=== PATIENT | female | born 1950 | race Caucasian/White ===

== ENCOUNTER 2020-09-18 09:05 | Emergency (ER) | payer BC, OTHER ==
--- OUTSIDE RECORDS SUMMARY | 2020-09-18 09:08 | XMS REPORT | Continuity of Care Document ---
:1950 Author Organization [facility] t Address [address] [place] [address] Care Team Providers Name Role Phone IZA Primary Care Physician Unavailable JULITO CERVANTES Attending Clinician Unavailable IZA Attending Clinician Unavailable LOVELY Attending Clinician Unavailable Nurse, Tiago Cai I Attending Clinician Unavailable Pierce GREGG Attending Clinician Manuel GREGG Attending Clinician GABRIELLE Attending Clinician Unavailable Doctor Unassigned, Name Attending Clinician Unavailable Tyrell Christian DO Attending Clinician Dinh POLLOCK Attending Clinician Unavailable ROGELIO ALFORD Attending Clinician Unavailable JULITO CERVANTES Admitting Clinician Unavailable Payers Payer Name Policy Type Policy Number Effective Date Expiration Date [place] [facility] [place] [id number] 2014 AND B 00:00:00 [facility] [id number] 2016 ONLY 00:00:00 Problems This patient has no known problems. Allergies, Adverse Reactions, Alerts This patient has no known allergies or adverse reactions. Medications This patient has no known medications. Vital Signs Vital Name Observation Time Observation Value Comments Source WEIGHT 2020-09-17 13:32:00 54.6 kg HEIGHT 2020-08-20 10:17:00 156 cm WEIGHT 2020-08-20 10:17:00 54.2 kg WEIGHT 2020-08-09 10:31:17 55.7 kg Procedures This patient has no known procedures. Encounters Start End Encounter Admission Attending Care Care Encounter Source Date/Time Date/Time Type Type Clinicians Facility Department ID 2020-09-17 2020-09-17 Outpatient KARTHIK JUNIOR MDA Markus/Hep/Nu [id number] 11:03:00 16:42:00 jasson mederos 2020-09-16 2020-09-16 Outpatient KACEY COUCH MDA MDA [id number] 07:14:45 07:14:45 KEENAN mederos 2020-09-15 2020-09-15 Outpatient KACEY COUCH MDA MDA [id number] 09:01:54 09:11:28 KEENAN mederos 2020-09-10 2020-09-10 Outpatient KARTHIK JUNIOR MDA MDA [id number] 08:30:00 23:59:00 Will mederos 2020-09-10 2020-09-10 Outpatient KACEY MURRY MDA MDA [id number] 07:30:00 08:29:00 SUMAYA mederos 2020-09-09 2020-09-09 Outpatient KACEY COUCH MDA MDA [id number] 10:00:00 10:00:00 KEENAN mederos 2020-08-30 2020-08-30 Nurse Nurse, [facility] [id number] 07:53:38 08:05:48 Visit Fam [facility] [id number] [place] [id number] Professio [phone] nal [facility] Office Building One 2020-08-27 2020-08-27 Refrenetta Pelayo [facility] [id number] 00:00:00 00:00:00 Juan Jose Health [id number] [place] [id number] Professio [phone] nal 044 Office [address] One 2020-08-27 2020-08-27 Arron Pelayo [facility] [id number] 00:00:00 00:00:00 Juan Jose Health [id number] [place] [id number] Professio [phone] nal [facility] Office Building One 2020-08-27 2020-08-27 Arron Jackson [facility] [id number] 00:00:00 00:00:00 Josefa Adair [id number] [place] [id number] Professio [phone] [facility] [address] Building 2020-08-20 2020-08-20 Outpatient KACEY ANTHONY MDA MDA [id number] MD 10:09:51 15:55:01 SHI Will o n 2020-08-20 2020-08-20 Outpatient KARTHIK JUNIOR MDA MDA [id number] 07:45:59 07:45:59 Will o n 2020-08-09 2020-08-09 Outpatient KARTHIK JUNIOR MDA MDA [id number] 12:00:00 23:59:00 Will o n 2020-08-09 2020-08-09 Outpatient KARTHIK JUNIOR MDA MDA [id number] 10:20:16 12:10:04 Will o n 2020-08-09 2020-08-09 Orders Doctor AARON [id number] 00:00:00 00:00:00 Only Unassigned, JOSÉ [id number] Alexis [facility] [id number] 2020-07-22 2020-07-22 Telephone Pierce [facility] [id number] 00:00:00 00:00:00 [facility] [id number] [place] [id number] Profkathryn [phone] nal 044 Office [address] One 2020-07-06 2020-07-06 [facility] [id number] 00:00:00 00:00:00 Outreach [facility] [id number] [facility] [id number] PRICILLA [id number] [id number] 2020-07-05 2020-07-05 Telephone Manuel [facility] [id number] 00:00:00 00:00:00 Josefa Adair [id number] [place] [id number] Professio [phone] [address] 2020-07-05 2020-07-05 Refill [facility] [id number] 00:00:00 00:00:00 Josefa Adair [id number] [place] [id number] [facility] [phone] [address] 2020-07-02 2020-07-02 Outpatient KACEY POLLOCK MDA MDA [id number] 08:07:11 08:07:11 CLAUDIA mederos 2020-06-07 2020-06-07 Office [facility] [id number] 09:13:36 10:09:34 Visit Josefa Adair [id number] [place] [id number] [facility] [phone] [address] 2020-04-12 2020-04-12 Outpatient LUCIAN MDA [id number] 09:01:14 09:01:14 Will mederos 2020-04-12 2020-04-12 Outpatient KACEY ALFORD MDA MDA [id number] 07:39:56 07:39:56 LEO mederos 2020-04-12 2020-04-12 Outpatient KACEY ALFORD MDA MDA [id number] 07:05:17 07:05:17 LEO mederos Results This patient has no known results.
[2020-09-18 10:30] LABS: Absolute Lymphocytes (CBC) 0.5 K/uL (0.7-4.9); Basophils % 0.3 % (0-1.3); Hematocrit 33.1 % (36.0-45.0); Lymphocytes % 8.9 % (15.3-44.8); MPV 8.2 fL (7.6-11.3); RBC Red Blood Cell Count 3.46 M/uL (3.86-4.86)
--- NOTE | 2020-09-18 10:43 | RAD REPORT ---
EXAM DESCRIPTION: Maira Single View09/18/2020 10:17 am CLINICAL HISTORY: Chest pain COMPARISON: none FINDINGS: The lungs appear clear of acute infiltrate. The heart is normal size IMPRESSION: No acute abnormalities displayed
[2020-09-18 10:47] LABS: Protime INR 1.38
[2020-09-18 10:51] LABS: ALT/SGPT 22 U/L (12-78); AST/SGOT 39 U/L (15-37); Albumin 3.2 g/dL (3.4-5.0); Alkaline Phosphatase 77 U/L (45-117); BUN Blood Urea Nitrogen 22 mg/dL (7-18); Bicarbonate 25 mmol/L (21-32); Bilirubin Direct 0.5 mg/dL (0-0.2); Bilirubin Total 2.9 mg/dL (0.2-1.0); Glucose Level 108 mg/dL (74-106); NT PRO-BNP 649 pg/mL (<125); Protein, Total 7.4 g/dL (6.4-8.2); Sodium Level 142 mmol/L (136-145); Troponin (Emerg Dept Use Only) < 0.02 ng/mL (0.0-0.045)
[2020-09-18 12:47] LABS: Blood Morphology Comment NOT SEEN (NOT SEEN); Platelet Estimate DECR; White Blood Cell Scan OK (OK)
--- NOTE | 2020-09-18 14:00 | EDPHYS ---
Physician Documentation [facility] Name: Swapna Johnson Age: 70 yrs Sex: Female : 1950 Arrival Date: 09/18/2020 Time: 09:08 Bed 2 Private MD: Juan Jose Pelayo S ED Physician Javi Wang HPI: 09/18 09:54 This 70 yrs old Female presents to ER via Ambulatory with complaints of jmm Black/Tarry Stools, Shortness Of Breath. 09:54 The patient or guardian reports chest pain that is located primarily in the substernal jmm area. Onset: gradually, last night. The pain does not radiate. Associated signs and symptoms: Pertinent positives: dizziness, shortness of breath. The chest pain is described as aching. Duration: The patient or guardian reports multiple episodes. Modifying factors: The symptoms are alleviated by nothing. the symptoms are aggravated by nothing. This is a 70 year old female with a history of htn, cirrhosis, breast cancer (remission) that presents to the ED with complaints fo substernal chest pain beginning last night. Patient states receiving an endoscopy with banding and a colonoscopy. Patient is also concerned due intermittent episodes of dizziness which she describes as feeling as if you is going to pass out. Patient states having a large bowel movement with dark stool.. Historical: - Allergies: 09:28 No Known Allergies; aa5 - Home Meds: 09:28 aripiprazole oral oral once daily [Active]; bupropion HCl 150 mg Oral TbER 1 tab once aa5 daily [Active]; docusate sodium 100 mg Oral tab 1 tab once daily [Active]; ferrous sulfate 325 mg (65 mg iron) Oral TbEC daily [Active]; Lasix 40 mg Oral tab 1 tab once daily [Active]; omeprazole 20 mg Oral cpDR 1 cap 2 times per day [Active]; potassium chloride 20 mEq Oral TbER 1 tab once daily [Active]; propranolol 10 mg oral tab twice daily [Active]; Vitamin D Oral [Active]; Zoloft 100 mg Oral tab 1 tab once daily [Active]; 10:24 cyanocobalamin (vitamin B-12) 500 mcg oral tab daily [Active]; hydrochlorothiazide 25 aa5 mg Oral tab 1 tab once daily [Active]; lactulose 10 gram/15 mL Oral soln 15 mL once daily [Active]; losartan 100 mg oral tab 1 tab once daily [Active]; melatonin 5 mg Oral cap nightly [Active]; methocarbamol 500 mg Oral tab 1 tabs as needeed [Active]; ursodiol 300 mg Oral cap 1 cap 2 times per day [Active]; - PMHx: 09:28 Hypertension; breast cancer- currently in remission; Cirrhosis; aa5 09:30 Hepatitis; aa5 - PSHx: 09:28 mastectomy- right side; aa5 - Immunization history:: Adult Immunizations up to date, Client reports receiving the 1st dose of the Covid vaccine. - Social history:: Smoking status: Patient/guardian denies using tobacco. ROS: 10:10 Constitutional: Negative for fever, chills, and weight loss. jmm 10:10 Cardiovascular: Positive for chest pain. 10:10 Respiratory: Positive for shortness of breath. 10:10 Abdomen/GI: Positive for black/tarry stool. 10:10 All other systems are negative. Exam: 10:10 Constitutional: This is a well developed, well nourished patient who is awake, alert, jmm and in no acute distress. Head/Face: atraumatic. Eyes: EOMI, no conjunctival erythema appreciated ENT: Moist Mucus Membranes Neck: Trachea midline, Supple Chest/axilla: Normal chest wall appearance and motion. Cardiovascular: Regular rate and rhythm. No edema appreciated Respiratory: Normal respirations, no respiratory distress appreciated Abdomen/GI: Non distended, soft Back: Normal ROM Skin: General appearance color normal MS/ Extremity: Moves all extremities, no obvious deformities appreciated, no edema noted to the lower extremities Neuro: Awake and alert, normal gait Psych: Behavior is normal, Mood is normal, Patient is cooperative and pleasant Vital Signs: 09:18 BP 154 / 97; Pulse 82; Resp 20; Temp 98.3; Pulse Ox 99% on R/A; Weight 54.43 kg (R); aa5 Height 5 ft. 2 in. (157.48 cm) (R); Pain 3/10; 10:36 BP 142 / 82 Supine; Pulse 72; mt 10:36 BP 137 / 90 Sitting; Pulse 76; mt 10:36 BP 139 / 89 Standing; Pulse 80; mt 11:46 BP 135 / 87; Pulse 73; Resp 16; Pulse Ox 100% ; bp 13:28 BP 145 / 85; Pulse 76; Resp 16; Pulse Ox 98% ; bp 15:14 BP 160 / 86; Pulse 80; Resp 16; Pulse Ox 100% ; bp 09:18 Body Mass Index 21.95 (54.43 kg, 157.48 cm) aa5 MDM: 09:32 Patient medically screened. urbano 13:48 The patient was not given aspirin in the Emergency Department. Data reviewed: vital [facility] signs, nurses notes, lab test result(s), radiologic studies, plain films. ED course: Patient is alert and non toxic in appearance in the ED. No signs of resp distress. Pain most likely due to recenty instrumentation. Rectal exam consistent with endoscopic procedure. Hemoglobin repeat has not significantly declined. Patient declined admission for chest pain observation. Patient is advised to follow up with pcp and otherwise given strict return precautions. Patient understood and agrees with the plan of care. . 15:11 ED course: Upon discussing repeat labs with the patient, the patient had continuing [facility] concerns about her chest pain. I discussed the patient with Dr. Robles whom visited with the patient and family and recommended discharging the patient. . 09/18 09:34 Order name: Basic Metabolic Panel; Complete Time: 11:03 [facility] 09/18 09:34 Order name: CBC with Diff; Complete Time: 12:55 [facility] 09/18 09:34 Order name: LFT's; Complete Time: 11:03 [facility] 09/18 09:34 Order name: Magnesium; Complete Time: 11:03 [facility] 09/18 09:34 Order name: NT PRO-BNP; Complete Time: 11:03 [facility] 09/18 09:34 Order name: PT-INR; Complete Time: 11:28 [facility] 09/18 09:34 Order name: Troponin (emerg Dept Use Only); Complete Time: 11:03 [facility] 09/18 09:34 Order name: XRAY Chest (1 view); Complete Time: 10:47 [facility] 09/18 10:49 Order name: Guiac; Complete Time: 11:08 em1 09/18 11:49 Order name: Troponin (emerg Dept Use Only): draw at 1; Complete Time: 13:13 [facility] 09/18 11:49 Order name: Hemoglobin: draw at 1; Complete Time: 13:37 [facility] 09/18 12:48 Order name: CBC Smear Scan; Complete Time: 12:55 [facility] 09/18 14:44 Order name: COVID-19 : Document "Date of Symptom Onset" if Symptomatic. aa5 09/18 09:34 Order name: EKG; Complete Time: 09:35 [facility] 09/18 09:34 Order name: Cardiac monitoring; Complete Time: 10:21 [facility] 09/18 09:34 Order name: EKG - Nurse/Tech; Complete Time: 10:21 [facility] 09/18 09:34 Order name: IV Saline Lock; Complete Time: 10:27 [facility] 09/18 09:34 Order name: Labs collected and sent; Complete Time: 10:21 [facility] 09/18 09:34 Order name: O2 Per Protocol; Complete Time: 10:21 [facility] 09/18 09:34 Order name: O2 Sat Monitoring; Complete Time: : [facility] 09/18 09:38 Order name: Orthostatics; Complete Time: 10:42 jm Administered Medications: No medications were administered Disposition: 09/19 06:57 Co-signature as Attending Physician, Javi Wang MD I agree with the assessment and urbano plan of care. Disposition: 09/18/20 15:14 Discharged to Home. Impression: Gastrointestinal hemorrhage, unspecified, Chest pain, unspecified. - Condition is Stable. - Discharge Instructions: Nonspecific Chest Pain, Gastrointestinal Bleeding. - Prescriptions for Protonix 40 mg Oral Tablet - take 1 tablet by ORAL route once daily; 30 tablet. - Medication Reconciliation Form, Thank You Letter, Antibiotic Education, Prescription Opioid Use form. - Follow up: Private Physician; When: 2 - 3 days; Reason: Recheck today's complaints, Continuance of care, Re-evaluation by your physician. - Notes: Please follow up with your primary care provider on sunday for repeat hemoglobin. Signatures: Dispatcher [employer] Javi Flroes MD MD cha Mickail, Joel, PA PA jmm Calderon, Audri, RN RN aa5 Corrections: (The following items were deleted from the chart) 09/18 14:06 09:34 TYPE AND SCREEN+BB.LAB.BRZ ordered. [facility] 14:43 13:59 09/18/2020 13:59 Discharged to Home. Impression: Gastrointestinal hemorrhage, rosangela unspecified; Chest pain, unspecified. Condition is Stable. Forms are Medication Reconciliation Form, Thank You Letter, Antibiotic Education, Prescription Opioid Use. Follow up: Private Physician; When: 2 - 3 days; Reason: Recheck today's complaints, Continuance of care, Re-evaluation by your physician. rosangela 15:46 15:14 09/18/2020 15:14 Discharged to Home. Impression: Gastrointestinal hemorrhage, aa5 unspecified; Chest pain, unspecified. Condition is Stable. Forms are Medication Reconciliation Form, Thank You Letter, Antibiotic Education, Prescription Opioid Use. Follow up: Private Physician; When: 2 - 3 days; Reason: Recheck today's complaints, Continuance of care, Re-evaluation by your physician. rosangela
--- NOTE | 2020-09-18 14:00 | ER ---
Nurse's Notes [facility] Name: Swapna Johnson Age: 70 yrs Sex: Female : 1950 Arrival Date: 09/18/2020 Time: 09:08 Bed 2 Private MD: Juan Jose Pelayo S Diagnosis: Gastrointestinal hemorrhage, unspecified;Chest pain, unspecified Presentation: 09/18 09:18 Chief complaint: Patient states: "Yesterday I had a colonoscopy and endoscopy at [facility] and they had to put bands in, and they told me I'd probably feel some pressure in my chest and I have, but this morning I got up to go to the bathroom and it was solid black. My daughter called [facility] and they said to take me to the nearest emergency room." Patient reports chest pain, dizziness, and shortness of breath. Coronavirus screen: Client denies travel out of the [place] in the last 14 days. At this time, the client does not indicate any symptoms associated with coronavirus-19. Ebola Screen: Patient denies travel to an Ebola-affected area in the 21 days before illness onset. Initial Sepsis Screen: Does the patient meet any 2 criteria? No. Patient's initial sepsis screen is negative. Does the patient have a suspected source of infection? No. Patient's initial sepsis screen is negative. Risk Assessment: Do you want to hurt yourself or someone else? Patient reports no desire to harm self or others. Onset of symptoms was September 17, 2020. 09:18 Method Of Arrival: Ambulatory aa5 09:18 Acuity: RAFAL 3 aa5 Triage Assessment: :28 General: Appears in no apparent distress. comfortable, Behavior is calm, cooperative, aa5 appropriate for age. Pain: Complains of pain in chest Pain currently is 3 out of 10 on a pain scale. Neuro: Level of Consciousness is awake, alert, obeys commands. Cardiovascular: Patient's skin is warm and dry. Respiratory: Reports shortness of breath on exertion Airway is patent Respiratory effort is even, unlabored, Respiratory pattern is regular, symmetrical, Onset: The symptoms/episode began/occurred this morning, the patient has mild shortness of breath. Historical: - Allergies: :28 No Known Allergies; aa5 - Home Meds: :28 aripiprazole oral oral once daily [Active]; bupropion HCl 150 mg Oral TbER 1 tab once aa5 daily [Active]; docusate sodium 100 mg Oral tab 1 tab once daily [Active]; ferrous sulfate 325 mg (65 mg iron) Oral TbEC daily [Active]; Lasix 40 mg Oral tab 1 tab once daily [Active]; omeprazole 20 mg Oral cpDR 1 cap 2 times per day [Active]; potassium chloride 20 mEq Oral TbER 1 tab once daily [Active]; propranolol 10 mg oral tab twice daily [Active]; Vitamin D Oral [Active]; Zoloft 100 mg Oral tab 1 tab once daily [Active]; 10:24 cyanocobalamin (vitamin B-12) 500 mcg oral tab daily [Active]; hydrochlorothiazide 25 aa5 mg Oral tab 1 tab once daily [Active]; lactulose 10 gram/15 mL Oral soln 15 mL once daily [Active]; losartan 100 mg oral tab 1 tab once daily [Active]; melatonin 5 mg Oral cap nightly [Active]; methocarbamol 500 mg Oral tab 1 tabs as needeed [Active]; ursodiol 300 mg Oral cap 1 cap 2 times per day [Active]; - PMHx: 09:28 Hypertension; breast cancer- currently in remission; Cirrhosis; aa5 09:30 Hepatitis; aa5 - PSHx: 09:28 mastectomy- right side; aa5 - Immunization history:: Adult Immunizations up to date, Client reports receiving the 1st dose of the Covid vaccine. - Social history:: Smoking status: Patient/guardian denies using tobacco. Screenin:30 Abuse screen: Denies threats or abuse. Denies injuries from another. Nutritional bp screening: No deficits noted. Tuberculosis screening: No symptoms or risk factors identified. Fall Risk None identified. Assessment: 09:30 General: SEE TRIAGE NOTE. bp 10:30 Cardiovascular: Rhythm is sinus rhythm. Respiratory: Airway is patent Breath sounds are bp clear bilaterally. 11:20 Reassessment: Patient appears in no apparent distress at this time. No changes from bp previously documented assessment. Patient and/or family updated on plan of care and expected duration. Pain level reassessed. 13:28 Reassessment: Patient appears in no apparent distress at this time. No changes from bp previously documented assessment. Patient and/or family updated on plan of care and expected duration. Pain level reassessed. ALL CURRENT ORDERS COMPLETED. 14:58 Reassessment: Patient appears in no apparent distress at this time. No changes from bp previously documented assessment. Patient and/or family updated on plan of care and expected duration. Pain level reassessed. PT REQUESTING ADMIT. NOTIFIED. 15:14 Reassessment: HOSPITALIST AT B/S. PT DC. bp 15:40 Reassessment: Patient is alert, oriented x 3, equal unlabored respirations, skin aa5 warm/dry/pink. Vital Signs: 09:18 BP 154 / 97; Pulse 82; Resp 20; Temp 98.3; Pulse Ox 99% on R/A; Weight 54.43 kg (R); aa5 Height 5 ft. 2 in. (157.48 cm) (R); Pain 3/10; 10:36 BP 142 / 82 Supine; Pulse 72; mt 10:36 BP 137 / 90 Sitting; Pulse 76; mt 10:36 BP 139 / 89 Standing; Pulse 80; mt 11:46 BP 135 / 87; Pulse 73; Resp 16; Pulse Ox 100% ; bp 13:28 BP 145 / 85; Pulse 76; Resp 16; Pulse Ox 98% ; bp 15:14 BP 160 / 86; Pulse 80; Resp 16; Pulse Ox 100% ; bp 09:18 Body Mass Index 21.95 (54.43 kg, 157.48 cm) aa5 ED Course: 09:08 Patient arrived in ED. as 09:09 Juan Jose Pelayo MD is Private Physician. as 09:21 Triage completed. aa5 09:28 Arm band placed on. aa5 09:31 Pierre Louise PA is PHCP. [facility] 09:31 Javi Wang MD is Attending Physician. [facility] 10:15 XRAY Chest (1 view) In Process Unspecified. EDMS 10:17 Zhou Petit, MYLENE is Primary Nurse. bp 10:20 Initial lab(s) drawn, by me, sent to lab. Missed attempt(s): 20 gauge in left mt antecubital area. 10:27 Inserted saline lock: 20 gauge in right forearm, using aseptic technique. Blood bp collected. 10:30 Patient has correct armband on for positive identification. Bed in low position. Call bp light in reach. Side rails up X2. 15:40 No provider procedures requiring assistance completed. IV discontinued, intact, aa5 bleeding controlled, No redness/swelling at site. Pressure dressing applied. Administered Medications: No medications were administered Outcome: 13:59 Discharge ordered by . rosangela 15:14 Discharge ordered by . rosangela 15:40 Discharged to home ambulatory, with family. aa5 15:40 Condition: stable 15:40 Discharge instructions given to patient, Instructed on discharge instructions, follow up and referral plans. medication usage, Demonstrated understanding of instructions, follow-up care, medications, Prescriptions given X 1. 15:46 Patient left the ED. aa5 Signatures: Dispatcher [employer] EDMS Pierre Louise PA PA jmm Martinez, Amelia as Calderon, Audri, RN RN aa5 Genet Urrutia mt, Brian, RN RN bp
--- NOTE | 2020-09-18 15:20 | P.CNS ---
Date of Consult: 09/18/20 Reason for Consult: Possible Admission Primary Care Provider: Dr. Pelayo Chief Complaint: Chest pain, melena History of Present Illness: 70-year-old female with history of hypertension, alcoholic cirrhosis, breast cancer and depression with anxiety. Patient reports having an EGD and colonoscopy yesterday with banding done at that time at [facility]. Patient reports having chest pain after the procedure. He would come and go. Lasting for for a couple min then resolving. It felt like a squeezing or tightness sensation. She denied any shortness of breath, nausea vomiting. She did report some melena. She denied any headaches, dizziness, diaphoresis. Patient was evaluated in the emergency room. No significant abnormalities noted. Chest x-ray unremarkable. CBC unremarkable with white count 5.2, hemoglobin 11.5. Sodium 141. Troponin unremarkable. A repeat troponin was done several hr later which was also unremarkable. I was called to evaluate patient for possible admission or discharge from the ER. Home medications list reviewed: Yes - Past Medical/Surgical History -: Hypertension -: Alcoholic cirrhosis -: Breast cancer -: Depression with anxiety -: History of gastric varices -: GERD -: History of right breast mastectomy -: Recent EGD, colonoscopy and banding Psychosocial/ Personal History: Patient lives at home - Family History Father Family History: Reviewed- Non-Contributory - Social History Smoking Status: Never smoker Alcohol use: No CD- Drugs: No Caffeine use: No Place of Residence: Home Review of Systems General: As per HPI Eyes: Unremarkable Respiratory: Unremarkable Cardiovascular: Chest Pain, As per HPI Gastrointestinal: Melena, As per HPI Genitourinary: Unremarkable Musculoskeletal: Unremarkable Integumentary: Unremarkable Neurological: Unremarkable Lymphatics: Unremarkable Physical Examination General: Alert, In no apparent distress, Oriented x3, Cooperative HEENT: Atraumatic, Normocephalic, PERRLA, Mucous membr. moist/pink Neck: Supple Respiratory: Clear to auscultation bilaterally, Normal air movement Cardiovascular: Normal pulses, Regular rate/rhythm Gastrointestinal: Normal bowel sounds, Soft and benign, Non-distended, No ascites, No tenderness, No masses, No rebound, No guarding Musculoskeletal: No erythema, No tenderness, No warmth Integumentary: No tenderness/swelling, No erythema, No warmth, No cyanosis Neurological: Normal speech, Normal strength at 5/5 x4 extr, Normal tone, Normal affect Laboratory Data (last 24 hrs) 09/18/20 12:40: Hgb 11.4 L 09/18/20 10:17: PT 15.9 H, INR 1.38 09/18/20 10:09: WBC 5.20, Hgb 11.5 L, Hct 33.1 L, Plt Count 73 L 09/18/20 10:09: Sodium 142, Potassium 4.0, BUN 22 H, Creatinine 0.54 L, Glucose 108 H, Magnesium 2.0, Total Bilirubin 2.9 H, AST 39 H, ALT 22, Alkaline Phosphatase 77 Conclusions/Impression: Impression: Chest pain likely related to GERD with esophageal spasm with history of recent EGD/banding Alcoholic cirrhosis with history of gastric varices History of breast cancer Hypertension Depression with anxiety Plan: Chest pain likely related to GERD with esophageal spasm with history of recent EGD/banding: Patient was evaluated in the emergency room. Patient had chest pain likely related to recent EGD/colonoscopy and banding done yesterday. Patient had 2 troponins in the emergency room. Both unremarkable. CXR normal. Patient without chest pain at this time. This is likely GI related and noncardiac. Case discussed with cardiology who agrees. Medications reviewed. Recommend to discontinue Prilosec and switch over to Protonix 40 mg daily. Recommend also with a bland light diet for now. Consider soft diet for the next couple a days. Patient will be discharged home. Recommend ER provider to provide Protonix. Recommend for patient to follow up with PCP on Sunday to recheck lab-CBC and follow up ER visit. This was discussed in detail with the patient and daughter who was on conference call. All were in agreement with plan of care. Patient will be discharge from the ER. Melena likely related to recent EGD/colonoscopy and banding: CBC within normal range. No evidence of active bleed at this time. Melena likely related to recent procedure. Recommend follow up with PCP on Sunday with repeat lab-CBC. Continue with above recommendations. Alcoholic cirrhosis with history of gastric varices: Continue with above changes. Patient will continue with her other medications including propanolol. History of breast cancer: Follow up at [facility] Hypertension: Patient on propanolol. Continue with her medication. Recommend to monitor blood pressure daily. Recommend to maintain blood pressure less than 130/80. Further adjustment can be done by her PCP Especially if blood pressure greater than 140/90.. Depression with anxiety: Continue with Zoloft. Time Spent Managing Pts care (In Minutes): 55
[2020-09-18 16:00] VITALS: TEMP 98.3
[2020-09-18 16:06] VITALS: BP 160/86; O2SAT 100
== END 2020-09-18 15:46 | disposition home or self-care (01) ==
LOC: ER 09:05
DX: K92.2 Gastrointestinal hemorrhage, unspecified (principal); I10 Essential (primary) hypertension; Z85.3 Personal history of malignant neoplasm of breast; Z90.11 Acquired absence of right breast and nipple
CPT/HCPCS: 36415; 71045; 80048; 80076; 82272; 83735; 83880; 84484; 85018; 85025; 85610; 93005; 99284

== ENCOUNTER 2023-01-05 19:22 | Emergency (ER) | payer OTHER ==
--- OUTSIDE RECORDS SUMMARY | 2023-01-05 19:31 | XMS REPORT | Continuity of Care Document ---
:1950 Author Organization [facility] t Address [address] [facility]. [address] [place] [address] Care Team Providers Name Role Phone [phone] Primary Care Physician Unavailable KARTHIK CERVANTES [facility] Attending Clinician Unavailable SYSTEM, PROVIDER NOT IN Attending Clinician Unavailable REAGAN PAINTER Attending Clinician Unavailable REAGAN PAINTER Attending Clinician Unavailable JUAN JOSE PELAYO Attending Clinician Unavailable Reagan Painter MD Attending Clinician Lab, Ang - Db Attending Clinician Unavailable MARSHALL JANG Attending Clinician Unavailable KATELYN WILEY Attending Clinician Unavailable EbrahiKatelyn Lorenzana Attending Clinician Unknown, Attending Attending Clinician Unavailable Doctor Unassigned, [place] Attending Clinician Unavailable Juan Jose Pelayo MD Attending Clinician JEZ MEDINA Attending Clinician Unavailable CAITLIN DOMÍNGUEZ Attending Clinician Unavailable Tawny Rogers MD Attending Clinician Keny Rogers MD Attending Clinician Jez Medina MD Attending Clinician Pob, [facility] Main Attending Clinician Unavailable Seema Collier MD Attending Clinician Radha Andrews RN Attending Clinician Unavailable SEEMA COLLIER Attending Clinician Unavailable Hellen Phpips MD Attending Clinician MAXI MAR Attending Clinician Unavailable Maxi Mar DO Attending Clinician VALERIANO COUCH Attending Clinician Unavailable Nurse, Derek Sadler Attending Clinician Unavailable Joe Bear MD Attending Clinician JOE BEAR Attending Clinician Unavailable Ricky Dixon Attending Clinician Josefa Jackson MD Attending Clinician JOSEFA JACKSON Attending Clinician Unavailable Karma Hammer Attending Clinician Provider, [facility] Attending Clinician Unavailable KARMA COLLIER Attending Clinician Unavailable Nurse, [facility] Pob I Attending Clinician Unavailable Lab, [facility] Pob I Attending Clinician Unavailable SUMAYA MURRY Attending Clinician Unavailable SHI ANTHONY Attending Clinician Unavailable Valeriano Christian DO Attending Clinician CLAUDIA POLLOCK Attending Clinician Unavailable 2, [facility] Attending Clinician Unavailable Cbc, Medicare Wellness Ang Tiago Attending Clinician UnavailLEO Hernandez Attending Clinician Unavailable Emile Cast MD Attending Clinician Argelia Yeh Attending Clinician ARGELIA KENNEDY Attending Clinician Unavailable EMILE CAST Attending Clinician Unavailable Darling Lamb LMSW Attending Clinician Génesis Mathis S Attending Clinician Asif Vaughn MD Attending Clinician Lori CHAKRABORTY, Veda Hopkins Attending Clinician Unavailable Pob[facility], [facility] Attending Clinician Unavailable Magda Burgess Attending Clinician KARTHIK CERVANTES [facility] Admitting Clinician Unavailable SEEMA COLLIER Admitting Clinician Unavailable Seema Collier MD Admitting Clinician Asif Vaughn MD Admitting Clinician Payers Payer Name Policy Type Policy Number Effective Date Expiration Date S nisha MEDICARE PART A [id number] 2014 AND B 00:00:00 [facility] [id number] 2016 ONLY 00:00:00 [place] [id number] 2015 2016 PPO 00:00:00 00:00:00 MEDICARE PART A [id number] 2014 \T\ B 00:00:00 [facility] [id number] 2017 MEDICARE 00:00:00 SUPPLEMENT Problems Condition Condition Condition Status Onset Resolution Last Treating Co mments Source Name Details Category Date Date Treatment Clinician Date Peritoniti Peritoniti Disease Active 2020-05 U nivers s s 07-04 ity of 00:00: [place] 00 Medical Branch Gastroesop Gastroesop Disease Active 2019-05 U nivers hageal hageal 2 ity of reflux reflux 00:00: [place] disease, disease, 00 Medica l unspecifie unspecifie Br anch d whether d whether esophagiti esophagiti s present s present Alcoholic Alcoholic Disease Active 2019-05 Uni vers cirrhosis cirrhosis 2 ity of of liver of liver 00:00: [place] without without 00 Medical ascites ascites Branch Symptomati Symptomati Disease Active U nivers c anemia c anemia 9 ity of 00:00: [place] 00 Medical Branch Primary Primary Disease Active Univers osteoarthr osteoarthr 1-30 it y of itis of itis of 00:00: [place] both hands both hands 00 Me dical Branch Essential Essential Disease Active Uni vers hypertensi hypertensi 831 it y of on on 00:00: [place] 00 Medical Branch Depression Depression Disease Active U nivers 8 ity of 00:00: [place] 00 [facility] Allergies, Adverse Reactions, Alerts Allergy Allergy Status Severity Reaction(s) Onset Inactive Treating Comm ents Source Name Type Date Date Clinician NO KNOWN Drug Active Univers ALLERGIE Class ity of S [facility] Social History Social Habit Start Date Stop Date Quantity Comments Source Gender identity Universit y of [facility] Sexual orientation Univer sity of [facility] Exposure to 2022-09-23 2022-10-03 Not sure [facility] SARS-CoV-2 (event) 00:00:00 09:20:00 [facility] Alcohol intake 2022-10-03 2022-10-03 Ex-drinker University 00:00:00 00:00:00 (finding) [facility] Tobacco Comment 2022-03-01 2022-03-01 patient has Universi ty of 00:00:00 00:00:00 never used [facility] tobacco products Branch History of Social 2022-03-01 2022-03-01 Univers ity of function 00:00:00 00:00:00 [facility] Tobacco use and 2022-03-01 2022-03-01 Smokeless Universit y of exposure 00:00:00 00:00:00 tobacco [facility]user [facility]igned At [birth year] Universit y of 00:00:00 00:00:00 [facility] Smoking Status Start Date Stop Date Source Never smoked tobacco [facility] Medications Ordered Filled Start Stop Current Ordering Indication Dosage Frequency Signature Comments Components Source Medication Medication Date Date Medication? Clinician (SIG) Name Name donepeziL Yes [id number] 10mg Take 1 Un [facility] 10 mg 5-31 tablet by ity of tablet 00:00: mouth at [place] [address] bedtime. Medical Branch donepeziL Yes [id number] 10mg Take 1 [facility] [place] 10 mg 5-31 tablet by ity of tablet 00:00: mouth at [place] [address] bedtime. Medical Branch donepeziL Yes [id number] 10mg Take 1 [facility] [place] 10 mg 5-31 tablet by ity of tablet 00:00: mouth at [place] [address] bedtime. Medical Branch donepeziL 5 Yes [id number] 5mg Take 1 Univers mg tablet 5-30 tablet by ity o f 00:00: mouth at [place] [address] bedtime. Medical Branch donepeziL Yes [id number] 10mg Take 1 Un [facility] 10 mg 5-30 tablet by ity of tablet 00:00: mouth at [place] [address] bedtime. Medical Branch donepeziL 5 Yes [id number] 5mg Take 1 Univers mg tablet 5-30 tablet by ity o f 00:00: mouth at [place] [address] bedtime. Medical Branch donepeziL 5 0 Yes [id number] 5mg Take 1 Univers mg tablet 5-30 tablet by ity o f 00:00: mouth at [place] [address] bedtime. Medical Branch donepeziL 5 0 Yes [id number] 5mg Take 1 Univers mg tablet 5-30 tablet by ity o f 00:00: mouth at [place] 00 bedtime. Medical Branch donepeziL 2022-0 2022- No [id number] 10mg Take 1 U nivers 10 mg 5-30 05-31 tablet by ity of tablet 00:00: 00:00 mouth at [place] 00 :00 bedtime. Medical Branch donepeziL 2022-0 2022- No [id number] 10mg Take 1 U nivers 10 mg 5-30 05-31 tablet by ity of tablet 00:00: 00:00 mouth at [place] 00 :00 bedtime. Medical Branch cefdinir 2022-0 2022- No [id number] 600mg Take 2 U nivers 300 mg 5-23 06-03 capsules ity of capsule 00:00: 04:59 by mouth [place] 00 :00 in the [facility] Branch for 10 days. cefdinir 2022-0 2022- No [id number] 600mg Take 2 U nivers 300 mg 5-23 06-03 capsules ity of capsule 00:00: 04:59 by mouth [place] 00 :00 in the [facility] Branch for 10 days. cefdinir 2022-0 2022- No [id number] 600mg Take 2 U nivers 300 mg 5-23 06-03 capsules ity of capsule 00:00: 04:59 by mouth [place] 00 :00 in the [facility] Branch for 10 days. cefdinir 2022-0 2022- No [id number] 600mg Take 2 U nivers 300 mg 5-23 06-03 capsules ity of capsule 00:00: 04:59 by mouth [place] 00 :00 in the [facility] for 10 days. spironolact 2022-0 Yes [id number] 25mg Take 1 Univers one 25 mg 5-09 tablet by ity o f tablet 00:00: mouth in [place] 00 the Medical morning. Branch SERTraline 2022-0 Yes [id number] 100mg Take 1 Univers 100 mg 5-09 tablet by ity of tablet 00:00: mouth in [place] 00 the Medical morning. Branch propranoloL 2022-0 Yes [id number] 20mg Take 1 U nivers 20 mg 5-09 tablet by ity of tablet 00:00: mouth in [place] 00 the Medical morning. Branch meloxicam 2022-0 Yes [id number] 7.5mg Take 1 Univers 7.5 mg 5-09 9109 tablet by ity of tablet 00:00: mouth in [place] 00 the Medical morning. Branch losartan 3-0 Yes [id number] 100mg Take 1 Uni vers 100 mg 5-09 tablet by ity of tablet 00:00: mouth in [place] 00 the Medical morning. Branch buPROPion 3-0 Yes [id number] 150mg Take 1 U nivers SR 150 mg 5-09 tablet by ity o f SR tablet 00:00: mouth [place] 00 every Medical morning. Branch ARIPiprazol 3-0 Yes [id number] 10mg Take 1 Univers e 10 mg 5-09 tablet by ity of tablet 00:00: mouth [place] 00 every Medical morning. Branch spironolact 3-0 Yes [id number] 25mg Take 1 Univers one 25 mg 5-09 tablet by ity o f tablet 00:00: mouth in [place] 00 the Medical morning. Branch SERTraline 3-0 Yes [id number] 100mg Take 1 Univers 100 mg 5-09 tablet by ity of tablet 00:00: mouth in [place] 00 the Medical morning. Branch propranoloL 3-0 Yes [id number] 20mg Take 1 U nivers 20 mg 5-09 tablet by ity of tablet 00:00: mouth in [place] 00 the Medical morning. Branch meloxicam 3-0 Yes [id number] 7.5mg Take 1 Univers 7.5 mg 5-09 9109 tablet by ity of tablet 00:00: mouth in [place] 00 the Medical morning. Branch losartan 3-0 Yes [id number] 100mg Take 1 Uni vers 100 mg 5-09 tablet by ity of tablet 00:00: mouth in [place] 00 the Medical morning. Branch buPROPion 3-0 Yes [id number] 150mg Take 1 U nivers SR 150 mg 5-09 tablet by ity o f SR tablet 00:00: mouth [place] 00 every Medical morning. Branch ARIPiprazol 3-0 Yes [id number] 10mg Take 1 Univers e 10 mg 5-09 tablet by ity of tablet 00:00: mouth [place] 00 every Medical morning. Branch spironolact 3-0 Yes [id number] 25mg Take 1 Univers one 25 mg 5-09 tablet by ity o f tablet 00:00: mouth in [place] 00 the Medical morning. Branch SERTraline 3-0 Yes [id number] 100mg Take 1 Univers 100 mg 5-09 tablet by ity of tablet 00:00: mouth in [place] 00 the Medical morning. Branch propranoloL 3-0 Yes [id number] 20mg Take 1 U nivers 20 mg 5-09 tablet by ity of tablet 00:00: mouth in [place] 00 the Medical morning. Branch meloxicam 3-0 Yes [id number] 7.5mg Take 1 Univers 7.5 mg 5-09 9109 tablet by ity of tablet 00:00: mouth in [place] 00 the Medical morning. Branch losartan 3-0 Yes [id number] 100mg Take 1 Uni vers 100 mg 5-09 tablet by ity of tablet 00:00: mouth in [place] 00 the Medical morning. Branch buPROPion 3-0 Yes [id number] 150mg Take 1 U nivers SR 150 mg 5-09 tablet by ity o f SR tablet 00:00: mouth [place] 00 every Medical morning. Branch ARIPiprazol 3-0 Yes [id number] 10mg Take 1 Univers e 10 mg 5-09 tablet by ity of tablet 00:00: mouth [place] 00 every Medical morning. Branch spironolact 2022-0 Yes [id number] 25mg Take 1 Univers one 25 mg 5-09 tablet by ity o f tablet 00:00: mouth in [place] 00 the Medical morning. Branch SERTraline 2022-0 Yes [id number] 100mg Take 1 Univers 100 mg 5-09 tablet by ity of tablet 00:00: mouth in [place] 00 the Medical morning. Branch propranoloL 3-0 Yes [id number] 20mg Take 1 U nivers 20 mg 5-09 tablet by ity of tablet 00:00: mouth in [place] 00 the Medical morning. Branch meloxicam 3-0 Yes [id number] 7.5mg Take 1 Univers 7.5 mg 5-09 9109 tablet by ity of tablet 00:00: mouth in [place] 00 the Medical morning. Branch losartan 3-0 Yes [id number] 100mg Take 1 Uni vers 100 mg 5-09 tablet by ity of tablet 00:00: mouth in [place] 00 the Medical morning. Branch buPROPion 3-0 Yes [id number] 150mg Take 1 U nivers SR 150 mg 5-09 tablet by ity o f SR tablet 00:00: mouth [place] 00 every Medical morning. Branch ARIPiprazol 3-0 Yes [id number] 10mg Take 1 Univers e 10 mg 5-09 tablet by ity of tablet 00:00: mouth [place] 00 every Medical morning. Branch spironolact 2022-0 Yes [id number] 25mg Take 1 Univers one 25 mg 5-09 tablet by ity o f tablet 00:00: mouth in [place] 00 the Medical morning. Branch SERTraline 2022-0 Yes [id number] 100mg Take 1 Univers 100 mg 5-09 tablet by ity of tablet 00:00: mouth in [place] 00 the Medical morning. Branch propranoloL 2022-0 Yes [id number] 20mg Take 1 U nivers 20 mg 5-09 tablet by ity of tablet 00:00: mouth in [place] 00 the Medical morning. Branch meloxicam 2022-0 Yes [id number] 7.5mg Take 1 Univers 7.5 mg 5-09 9109 tablet by ity of tablet 00:00: mouth in [place] 00 the Medical morning. Branch losartan 2022-0 Yes [id number] 100mg Take 1 Uni vers 100 mg 5-09 tablet by ity of tablet 00:00: mouth in [place] 00 the Medical morning. Branch buPROPion 2022-0 Yes [id number] 150mg Take 1 U nivers SR 150 mg 5-09 tablet by ity o f SR tablet 00:00: mouth [place] 00 every Medical morning. Branch ARIPiprazol 2022-0 Yes [id number] 10mg Take 1 Univers e 10 mg 5-09 tablet by ity of tablet 00:00: mouth [place] 00 every Medical morning. Branch spironolact 2022-0 Yes [id number] 25mg Take 1 Univers one 25 mg 5-09 tablet by ity o f tablet 00:00: mouth in [place] 00 the Medical morning. Branch SERTraline 2022-0 Yes [id number] 100mg Take 1 Univers 100 mg 5-09 tablet by ity of tablet 00:00: mouth in [place] 00 the Medical morning. Branch propranoloL 3-0 Yes [id number] 20mg Take 1 U nivers 20 mg 5-09 tablet by ity of tablet 00:00: mouth in [place] 00 the Medical morning. Branch meloxicam 3-0 Yes [id number] 7.5mg Take 1 Univers 7.5 mg 5-09 9109 tablet by ity of tablet 00:00: mouth in [place] 00 the Medical morning. Branch losartan 3-0 Yes [id number] 100mg Take 1 Uni vers 100 mg 5-09 tablet by ity of tablet 00:00: mouth in [place] 00 the Medical morning. Branch buPROPion 3-0 Yes [id number] 150mg Take 1 U nivers SR 150 mg 5-09 tablet by ity o f SR tablet 00:00: mouth [place] 00 every Medical morning. Branch ARIPiprazol 3-0 Yes [id number] 10mg Take 1 Univers e 10 mg 5-09 tablet by ity of tablet 00:00: mouth [place] 00 every Medical morning. Branch spironolact 3-0 Yes [id number] 25mg Take 1 Univers one 25 mg 5-09 tablet by ity o f tablet 00:00: mouth in [place] 00 the Medical morning. Branch SERTraline 3-0 Yes [id number] 100mg Take 1 Univers 100 mg 5-09 tablet by ity of tablet 00:00: mouth in [place] 00 the Medical morning. Branch propranoloL 3-0 Yes [id number] 20mg Take 1 U nivers 20 mg 5-09 tablet by ity of tablet 00:00: mouth in [place] 00 the Medical morning. Branch meloxicam 3-0 Yes [id number] 7.5mg Take 1 Univers 7.5 mg 5-09 9109 tablet by ity of tablet 00:00: mouth in [place] 00 the Medical morning. Branch losartan 3-0 Yes [id number] 100mg Take 1 Uni vers 100 mg 5-09 tablet by ity of tablet 00:00: mouth in [place] 00 the Medical morning. Branch buPROPion 3-0 Yes [id number] 150mg Take 1 U nivers SR 150 mg 5-09 tablet by ity o f SR tablet 00:00: mouth [place] 00 every Medical morning. Branch ARIPiprazol 3-0 Yes [id number] 10mg Take 1 Univers e 10 mg 5-09 tablet by ity of tablet 00:00: mouth [place] 00 every Medical morning. Branch spironolact 3-0 Yes [id number] 25mg Take 1 Univers one 25 mg 5-09 tablet by ity o f tablet 00:00: mouth in [place] 00 the Medical morning. Branch SERTraline 3-0 Yes [id number] 100mg Take 1 Univers 100 mg 5-09 tablet by ity of tablet 00:00: mouth in [place] 00 the Medical morning. Branch propranoloL 3-0 Yes [id number] 20mg Take 1 U nivers 20 mg 5-09 tablet by ity of tablet 00:00: mouth in [place] 00 the Medical morning. Branch meloxicam 3-0 Yes [id number] 7.5mg Take 1 Univers 7.5 mg 5-09 9109 tablet by ity of tablet 00:00: mouth in [place] 00 the Medical morning. Branch losartan 3-0 Yes [id number] 100mg Take 1 Uni vers 100 mg 5-09 tablet by ity of tablet 00:00: mouth in [place] 00 the Medical morning. Branch buPROPion 3-0 Yes [id number] 150mg Take 1 U nivers SR 150 mg 5-09 tablet by ity o f SR tablet 00:00: mouth [place] 00 every Medical morning. Branch ARIPiprazol 3-0 Yes [id number] 10mg Take 1 Univers e 10 mg 5-09 tablet by ity of tablet 00:00: mouth [place] 00 every Medical morning. Branch spironolact 2022-0 Yes [id number] 25mg Take 1 Univers one 25 mg 5-09 tablet by ity o f tablet 00:00: mouth in [place] 00 the Medical morning. Branch SERTraline 2022-0 Yes [id number] 100mg Take 1 Univers 100 mg 5-09 tablet by ity of tablet 00:00: mouth in [place] 00 the Medical morning. Branch propranoloL 2022-0 Yes [id number] 20mg Take 1 U nivers 20 mg 5-09 tablet by ity of tablet 00:00: mouth in [place] 00 the Medical morning. Branch meloxicam 3-0 Yes [id number] 7.5mg Take 1 Univers 7.5 mg 5-09 9109 tablet by ity of tablet 00:00: mouth in [place] 00 the Medical morning. Branch losartan 3-0 Yes [id number] 100mg Take 1 Uni vers 100 mg 5-09 tablet by ity of tablet 00:00: mouth in [place] 00 the Medical morning. Branch buPROPion 3-0 Yes [id number] 150mg Take 1 U nivers SR 150 mg 5-09 tablet by ity o f SR tablet 00:00: mouth [place] 00 every Medical morning. Branch ARIPiprazol 3-0 Yes [id number] 10mg Take 1 Univers e 10 mg 5-09 tablet by ity of tablet 00:00: mouth [place] 00 every Medical morning. Branch spironolact 2022-0 Yes [id number] 25mg Take 1 Univers one 25 mg 5-09 tablet by ity o f tablet 00:00: mouth in [place] 00 the Medical morning. Branch SERTraline 2022-0 Yes [id number] 100mg Take 1 Univers 100 mg 5-09 tablet by ity of tablet 00:00: mouth in [place] 00 the Medical morning. Branch propranoloL 2022-0 Yes [id number] 20mg Take 1 U nivers 20 mg 5-09 tablet by ity of tablet 00:00: mouth in [place] 00 the Medical morning. Branch meloxicam 2022-0 Yes [id number] 7.5mg Take 1 Univers 7.5 mg 5-09 9109 tablet by ity of tablet 00:00: mouth in [place] 00 the Medical morning. Branch losartan 2022-0 Yes [id number] 100mg Take 1 Uni vers 100 mg 5-09 tablet by ity of tablet 00:00: mouth in [place] 00 the Medical morning. Branch buPROPion 2022-0 Yes [id number] 150mg Take 1 U nivers SR 150 mg 5-09 tablet by ity o f SR tablet 00:00: mouth [place] 00 every Medical morning. Branch ARIPiprazol 2022-0 Yes [id number] 10mg Take 1 Univers e 10 mg 5-09 tablet by ity of tablet 00:00: mouth [place] 00 every Medical morning. Branch MELOXICAM 2022-0 Yes [id number] 7.5mg TAKE 1 Univers 7.5 mg 4-27 9109 TABLET BY ity of tablet 00:00: MOUTH IN [place] 00 THE Medical MORNING Branch SPIRONOLACT 2022-0 Yes [id number] 25mg TAKE 1 Univers ONE 25 mg 4-27 TABLET BY ity o f tablet 00:00: MOUTH IN [place] 00 THE Medical MORNING Branch LOSARTAN 3-0 Yes [id number] 100mg TAKE 1 Uni vers 100 mg 4-27 TABLET BY ity of tablet 00:00: MOUTH IN [place] 00 THE Medical MORNING Branch PROPRANOLOL 2022-0 Yes [id number] 20mg TAKE 1 U nivers 20 mg 4-27 TABLET BY ity of tablet 00:00: MOUTH IN [place] 00 THE Medical MORNING Branch MELOXICAM 2022-0 3- No [id number] 7.5mg TAKE 1 Univers 7.5 mg 4-27 05-09 9109 TABLET BY ity of tablet 00:00: 00:00 MOUTH IN [place] 00 :00 THE Medical MORNING Branch SPIRONOLACT 2022-0 2022- No [id number] 25mg TAKE 1 Univers ONE 25 mg 4-27 05-09 TABLET BY ity of tablet 00:00: 00:00 MOUTH IN [place] 00 :00 THE Medical MORNING Branch LOSARTAN 2022-0 2022- No [id number] 100mg TAKE 1 Un flakita 100 mg 4-27 05-09 TABLET BY ity of tablet 00:00: 00:00 MOUTH IN [place] 00 :00 THE Medical MORNING Branch PROPRANOLOL 2022-0 2022- No [id number] 20mg TAKE 1 Univers 20 mg 4-27 05-09 TABLET BY ity of tablet 00:00: 00:00 MOUTH IN [place] 00 :00 THE Medical MORNING Branch MELOXICAM 2022-0 2022- No [id number] 7.5mg TAKE 1 Univers 7.5 mg 4-27 05- 9109 TABLET BY ity of tablet 00:00: 00:00 MOUTH IN [place] 00 :00 THE Medical MORNING Branch SPIRONOLACT 2022-0 2022- No [id number] 25mg TAKE 1 Univers ONE 25 mg 4-27 05-09 TABLET BY ity of tablet 00:00: 00:00 MOUTH IN [place] 00 :00 THE Medical MORNING Branch LOSARTAN 2022-0 2022- No [id number] 100mg TAKE 1 Un flakita 100 mg 4-27 05-09 TABLET BY ity of tablet 00:00: 00:00 MOUTH IN [place] 00 :00 THE Medical MORNING Branch PROPRANOLOL 2022-0 2022- No [id number] 20mg TAKE 1 Univers 20 mg 4-27 05-09 TABLET BY ity of tablet 00:00: 00:00 MOUTH IN [place] 00 :00 THE Medical MORNING Branch propranolol 2021-05- No Take by Un flakita HCl 0-26 10-26 mouth. ity of (PROPRANOLO 08:40: 00:00 [place] L ORAL) 44 :00 Medical Branch propranolol 2021-05- No Take by Un flakita HCl 0-26 10-26 mouth. ity of (PROPRANOLO 08:40: 00:00 [place] L ORAL) 44 :00 Medical Branch sulfamethox 2021-05- No Take by Un flakita azole/trime 0-26 10-26 mouth. ity o f thoprim 08:38: 00:00 [place] (BACTRIM DS 46 :00 Medical ORAL) Branch sulfamethox 2021-05- Take by Un flakita azole/trime 0-26 10-26 mouth. ity o f thoprim 08:38: 00:00 [place] (BACTRIM DS 46 :00 Medical ORAL) Branch ARIPiprazol 2021-05 Yes [id number] 10mg Take 1 Univers e 10 mg 0-26 tablet by ity of tablet 00:00: mouth [place] 00 every Medical morning. Branch buPROPion 2021-05 Yes [id number] 150mg Take 1 U nivers SR 150 mg 0-26 tablet by ity o f SR tablet 00:00: mouth [place] 00 every Medical morning. Branch SERTraline 2021-05 Yes [id number] 100mg Take 1 Univers 100 mg 0-26 tablet by ity of tablet 00:00: mouth in [place] 00 the Medical morning. Branch losartan 2021-05 Yes [id number] 100mg Take 1 Uni vers 100 mg 0-26 tablet by ity of tablet 00:00: mouth in [place] 00 the Medical morning. Branch meloxicam 2021-05 Yes [id number] 7.5mg Take 1 Univers 7.5 mg 0-26 9109 tablet by ity of tablet 00:00: mouth in [place] 00 the Medical morning. Branch propranoloL 2021-05 Yes [id number] 20mg Take 1 U nivers 20 mg 0-26 tablet by ity of tablet 00:00: mouth in [place] 00 the Medical morning. Branch spironolact 2021-05 Yes [id number] 25mg Take 1 Univers one 25 mg 0-26 tablet by ity o f tablet 00:00: mouth in [place] 00 the Medical morning. Branch ARIPiprazol 2021-05 Yes [id number] 10mg Take 1 Univers e 10 mg 0-26 tablet by ity of tablet 00:00: mouth [place] 00 every Medical morning. Branch buPROPion 2021-05 Yes [id number] 150mg Take 1 U nivers SR 150 mg 0-26 tablet by ity o f SR tablet 00:00: mouth [place] 00 every Medical morning. Branch SERTraline 2021-05 Yes [id number] 100mg Take 1 Univers 100 mg 0-26 tablet by ity of tablet 00:00: mouth in [place] 00 the Medical morning. Branch losartan 2021-05 Yes [id number] 100mg Take 1 Uni vers 100 mg 0-26 tablet by ity of tablet 00:00: mouth in [place] 00 the Medical morning. Branch meloxicam 2021-05 Yes [id number] 7.5mg Take 1 Univers 7.5 mg 0-26 9109 tablet by ity of tablet 00:00: mouth in [place] 00 the Medical morning. Branch propranoloL 2021-05 Yes [id number] 20mg Take 1 U nivers 20 mg 0-26 tablet by ity of tablet 00:00: mouth in [place] 00 the Medical morning. Branch spironolact 2021-05 Yes [id number] 25mg Take 1 Univers one 25 mg 0-26 tablet by ity o f tablet 00:00: mouth in [place] 00 the Medical morning. Branch ARIPiprazol 2021-05 Yes [id number] 10mg Take 1 Univers e 10 mg 0-26 tablet by ity of tablet 00:00: mouth [place] 00 every Medical morning. Branch buPROPion 2021-05 Yes [id number] 150mg Take 1 U nivers SR 150 mg 0-26 tablet by ity o f SR tablet 00:00: mouth [place] 00 every Medical morning. Branch SERTraline 2021-05 Yes [id number] 100mg Take 1 Univers 100 mg 0-26 tablet by ity of tablet 00:00: mouth in [place] 00 the Medical morning. Branch ARIPiprazol 2021-05- No [id number] 10mg Take 1 Univers e 10 mg 0-26 05-09 tablet by ity of tablet 00:00: 00:00 mouth [place] 00 :00 every Medical morning. Branch buPROPion 2021-05- No [id number] 150mg Take 1 Univers SR 150 mg 0-26 05-09 tablet by ity of SR tablet 00:00: 00:00 mouth [place] 00 :00 every Medical morning. Branch SERTraline 2021-05- No [id number] 100mg Take 1 Univers 100 mg 0-26 05-09 tablet by ity of tablet 00:00: 00:00 mouth in [place] 00 :00 the Medical morning. Branch ARIPiprazol 2021-05- No [id number] 10mg Take 1 Univers e 10 mg 0-26 05-09 tablet by ity of tablet 00:00: 00:00 mouth [place] 00 :00 every Medical morning. Branch buPROPion 2021-05- No [id number] 150mg Take 1 Univers SR 150 mg 0-26 05-09 tablet by ity of SR tablet 00:00: 00:00 mouth [place] 00 :00 every Medical morning. Branch SERTraline 2021-05- No [id number] 100mg Take 1 Univers 100 mg 0-26 05-09 tablet by ity of tablet 00:00: 00:00 mouth in [place] 00 :00 the Medical morning. Branch losartan 2021-05- No [id number] 100mg Take 1 Un flakita 100 mg 0-26 04-27 tablet by ity of tablet 00:00: 00:00 mouth in [place] 00 :00 the Medical morning. Branch meloxicam 2021-05- No [id number] 7.5mg Take 1 Univers 7.5 mg 0-26 04-27 9109 tablet by ity of tablet 00:00: 00:00 mouth in [place] 00 :00 the Medical morning. Branch propranoloL 2021-05- No [id number] 20mg Take 1 [facility] 20 mg 0-26 04-27 tablet by ity of tablet 00:00: 00:00 mouth in [place] 00 :00 the Medical morning. Branch spironolact 2021-05- No [id number] 25mg Take 1 [facility] one 25 mg 0-26 04-27 tablet by ity of tablet 00:00: 00:00 mouth in [place] 00 :00 the Medical morning. Branch SERTRALINE Yes 100mg TAKE 1 [facility] ers 100 mg 9-12 TABLET BY ity of tablet 00:00: [facility] 00 DAILY Medical Branch SERTRALINE Yes 100mg TAKE 1 [facility] ers 100 mg 9-12 TABLET BY ity of tablet 00:00: MOUTH [place] 00 DAILY Medical Branch SERTRALINE 2021-2021- No 100mg TAKE 1 [facility] vers 100 mg 9-12 10-26 TABLET BY ity of tablet 00:00: 00:00 MOUTH [place] 00 :00 DAILY Medical Branch SERTRALINE 2021- No 100mg TAKE 1 [facility] vers 100 mg 9-12 10-26 TABLET BY ity of tablet 00:00: 00:00 MOUTH [place] 00 :00 DAILY Medical Branch MELOXICAM 2021- Yes [id number] 7.5mg TAKE 1 [facility] 7.5 mg 8-18 9109 TABLET BY ity of tablet 00:00: [facility] DAILY Medical Branch SPIRONOLACT 2021-0 Yes [id number] 25mg TAKE 1 [facility] ONE 25 mg 8-18 TABLET BY ity o f tablet 00:00: [facility] DAILY Medical Branch MELOXICAM 2021-0 Yes [id number] 7.5mg TAKE 1 [facility] 7.5 mg 8-18 9109 TABLET BY ity of tablet 00:00: [facility] DAILY Medical Branch SPIRONOLACT 2021-0 Yes [id number] 25mg TAKE 1 [facility] ONE 25 mg 8-18 TABLET BY ity o f tablet 00:00: [facility] DAILY Medical Branch MELOXICAM 2021-0 Yes [id number] 7.5mg TAKE 1 [facility] 7.5 mg 8-18 9109 TABLET BY ity of tablet 00:00: [facility] DAILY Medical Branch SPIRONOLACT 2021-0 Yes [id number] 25mg TAKE 1 [facility] ONE 25 mg 8-18 TABLET BY ity o f tablet 00:00: [facility] DAILY Medical Branch MELOXICAM 2021-0 Yes [id number] 7.5mg TAKE 1 [facility] 7.5 mg 8-18 9109 TABLET BY ity of tablet 00:00: [facility] DAILY Medical Branch SPIRONOLACT 2021-0 Yes [id number] 25mg TAKE 1 [facility] ONE 25 mg 8-18 TABLET BY ity o f tablet 00:00: [facility] DAILY Medical Branch MELOXICAM 2021-0 2021- No [id number] 7.5mg TAKE 1 [facility] 7.5 mg 8-18 10-26 9109 TABLET BY ity of tablet 00:00: 00:00 [facility] 00 : DAILY Medical Branch SPIRONOLACT 2021-0 2021- No [id number] 25mg TAKE 1 [facility] ONE 25 mg 8-18 10-26 TABLET BY ity of tablet 00:00: 00:00 [facility] 00 :00 DAILY Medical Branch MELOXICAM 2-0 2021- No [id number] 7.5mg TAKE 1 [facility] 7.5 mg 8-18 10-26 9109 TABLET BY ity of tablet 00:00: 00:00 [facility] 00 : DAILY Medical Branch SPIRONOLACT 2021-0 2021- No [id number] 25mg TAKE 1 [facility] ONE 25 mg 8-18 10-26 TABLET BY ity of tablet 00:00: 00:00 [facility] 00 : DAILY Medical Branch SERTRALINE 2021-0 Yes 100mg TAKE 1 [facility] ers 100 mg 6-10 TABLET BY ity of tablet 00:00: [facility] DAILY Medical Branch ARIPIPRAZOL 2021-0 Yes [id number] 10mg TAKE 1 [facility] E 10 mg 6-10 TABLET BY ity of tablet 00:00: [facility] EVERY Medical MORNING Branch SERTRALINE 2021-0 Yes 100mg TAKE 1 [facility] ers 100 mg 6-10 TABLET BY ity of tablet 00:00: [facility] DAILY Medical Branch ARIPIPRAZOL 0 Yes [id number] 10mg TAKE 1 [facility] E 10 mg 6-10 TABLET BY ity of tablet 00:00: [facility] EVERY Medical MORNING Branch SERTRALINE 2021-0 Yes 100mg TAKE 1 [facility] ers 100 mg 6-10 TABLET BY ity of tablet 00:00: [facility] DAILY Medical Branch ARIPIPRAZOL 2021-0 Yes [id number] 10mg TAKE 1 [facility] E 10 mg 6-10 TABLET BY ity of tablet 00:00: [facility] EVERY Medical MORNING Branch ARIPIPRAZOL 0 Yes [id number] 10mg TAKE 1 [facility] E 10 mg 6-10 TABLET BY ity of tablet 00:00: [facility] EVERY Medical MORNING Branch ARIPIPRAZOL 0 Yes [id number] 10mg TAKE 1 [facility] E 10 mg 6-10 TABLET BY ity of tablet 00:00: [facility] EVERY Medical MORNING Branch ARIPIPRAZOL 2021-0 2021- No [id number] 10mg TAKE 1 [facility] E 10 mg 6-10 10-26 TABLET BY ity of tablet 00:00: 00:00 [facility] 00 : EVERY Medical MORNING Branch ARIPIPRAZOL 2021-0 2021- No [id number] 10mg TAKE 1 [facility] E 10 mg 6-10 10-26 TABLET BY ity of tablet 00:00: 00:00 [facility] 00 : EVERY Medical MORNING Branch SERTRALINE 2021-0 2021- No 100mg TAKE 1 [facility] vers 100 mg 6-10 09-12 TABLET BY ity of tablet 00:00: 00:00 [facility] 00 :00 DAILY Medical Branch SPIRONOLACT 2-0 Yes [id number] 25mg TAKE 1 [facility] ONE 25 mg 5-16 TABLET BY ity o f tablet 00:00: [facility] DAILY Medical Branch SPIRONOLACT 2-0 Yes [id number] 25mg TAKE 1 [facility] ONE 25 mg 5-16 TABLET BY ity o f tablet 00:00: [facility] DAILY Medical Branch LOSARTAN 2-0 Yes [id number] 100mg TAKE 1 [facility] vers 100 mg 5-16 TABLET BY ity of tablet 00:00: [facility] DAILY Medical Branch SPIRONOLACT 2-0 Yes [id number] 25mg TAKE 1 [facility] ONE 25 mg 5-16 TABLET BY ity o f tablet 00:00: [facility] DAILY Medical Branch LOSARTAN 2-0 Yes [id number] 100mg TAKE 1 [facility] vers 100 mg 5-16 TABLET BY ity of tablet 00:00: [facility] DAILY Medical Branch LOSARTAN 2-0 Yes [id number] 100mg TAKE 1 [facility] vers 100 mg 5-16 TABLET BY ity of tablet 00:00: [facility] DAILY Medical Branch LOSARTAN 2-0 Yes [id number] 100mg TAKE 1 [facility] vers 100 mg 5-16 TABLET BY ity of tablet 00:00: [facility] DAILY Medical Branch LOSARTAN 2-0 Yes [id number] 100mg TAKE 1 [facility] vers 100 mg 5-16 TABLET BY ity of tablet 00:00: [facility] DAILY Medical Branch LOSARTAN 2-0 Yes [id number] 100mg TAKE 1 [facility] vers 100 mg 5-16 TABLET BY ity of tablet 00:00: [facility] DAILY Medical Branch LOSARTAN 2-0 2- No [id number] 100mg TAKE 1 Un flakita 100 mg 5-16 10-26 TABLET BY ity of tablet 00:00: 00:00 [facility] 00 :00 DAILY Medical Branch LOSARTAN 2-0 2- No [id number] 100mg TAKE 1 Un flakita 100 mg 5-16 10-26 TABLET BY ity of tablet 00:00: 00:00 [facility] 00 :00 DAILY Medical Branch SPIRONOLACT 2-0 2- No [id number] 25mg TAKE 1 [facility] ONE 25 mg 5-16 08-18 TABLET BY ity of tablet 00:00: 00:00 [facility] 00 :00 DAILY Medical Branch BUPROPION 2-0 Yes [id number] 150mg TAKE 1 U nivers SR 150 mg 5-09 TABLET BY ity o f SR tablet 00:00: MOUTH [place] 00 EVERY Medical MORNING Branch BUPROPION 2021-0 Yes [id number] 150mg TAKE 1 U nivers SR 150 mg 5-09 TABLET BY ity o f SR tablet 00:00: MOUTH [place] 00 EVERY Medical MORNING Branch BUPROPION 2021-0 Yes [id number] 150mg TAKE 1 U nivers SR 150 mg 5-09 TABLET BY ity o f SR tablet 00:00: MOUTH [place] 00 EVERY Medical MORNING Branch BUPROPION 2021-0 Yes [id number] 150mg TAKE 1 U nivers SR 150 mg 5-09 TABLET BY ity o f SR tablet 00:00: MOUTH [place] 00 EVERY Medical MORNING Branch BUPROPION 2021-0 Yes [id number] 150mg TAKE 1 U nivers SR 150 mg 5-09 TABLET BY ity o f SR tablet 00:00: MOUTH [place] 00 EVERY Medical MORNING Branch BUPROPION 2021-0 Yes [id number] 150mg TAKE 1 U nivers SR 150 mg 5-09 TABLET BY ity o f SR tablet 00:00: [facility] 00 EVERY Medical MORNING Branch BUPROPION 2021-0 Yes [id number] 150mg TAKE 1 U nivers SR 150 mg 5-09 TABLET BY ity o f SR tablet 00:00: MOUTH [place] 00 EVERY Medical MORNING Branch BUPROPION 2021-0 Yes [id number] 150mg TAKE 1 U nivers SR 150 mg 5-09 TABLET BY ity o f SR tablet 00:00: MOUTH [place] 00 EVERY Medical MORNING Branch BUPROPION 2021-0 2021- No [id number] 150mg TAKE 1 [facility] SR 150 mg 5-09 10-26 TABLET BY ity of SR tablet 00:00: 00:00 MOUTH [place] 00 :00 EVERY Medical MORNING Branch BUPROPION 2021-0 2- No [id number] 150mg TAKE 1 [facility] SR 150 mg 5-09 10-26 TABLET BY ity of SR tablet 00:00: 00:00 MOUTH [place] 00 :00 EVERY Medical MORNING Branch rivastigmin 2021-0 Yes [id number] 1{patch Apply 1 [facility] e 4.6 mg/24 4-19 } Patch to ity of hour patch 00:00: skin [place] 00 daily. At Medical the end of Branch the script call the office for refill at higher dosage. rivastigmin 2021-0 Yes [id number] 1{patch Apply 1 [facility] e 4.6 mg/24 4-19 } Patch to ity of hour patch 00:00: skin [place] 00 daily. At [facility] the end of [place] the script call the office for refill at higher dosage. rivastigmin 2021-0 Yes [id number] 1{patch Apply 1 [facility] e 4.6 mg/24 4-19 } Patch to ity of hour patch 00:00: skin [place] 00 daily. At [facility] the end of [place] the script call the office for refill at higher dosage. rivastigmin 2021-0 Yes [id number] 1{patch Apply 1 [facility] e 4.6 mg/24 4-19 } Patch to ity of hour patch 00:00: skin [place] 00 daily. At [facility] the end of [place] the script call the office for refill at higher dosage. rivastigmin 2021-0 Yes [id number] 1{patch Apply 1 [facility] e 4.6 mg/24 4-19 } Patch to ity of hour patch 00:00: skin [place] 00 daily. At [facility] the end of [place] the script call the office for refill at higher dosage. rivastigmin 2021-0 Yes [id number] 1{patch Apply 1 [facility] e 4.6 mg/24 4-19 } Patch to ity of hour patch 00:00: skin [place] 00 daily. At [facility] the end of [place] the script call the office for refill at higher dosage. rivastigmin 2021-0 Yes [id number] 1{patch Apply 1 [facility] e 4.6 mg/24 4-19 } Patch to ity of hour patch 00:00: skin [place] 00 daily. At [facility] the end of [place] the script call the office for refill at higher dosage. rivastigmin 2021-0 Yes [id number] 1{patch Apply 1 [facility] e 4.6 mg/24 4-19 } Patch to ity of hour patch 00:00: skin [place] 00 daily. At [facility] the end of [place] the script call the office for refill at higher dosage. rivastigmin 2021-0 Yes [id number] 1{patch Apply 1 [facility] e 4.6 mg/24 4-19 } Patch to ity of hour patch 00:00: skin [place] 00 daily. At [facility] the end of [place] the script call the office for refill at higher dosage. rivastigmin 2021- No [id number] 1{patch Apply 1 [facility] e 4.6 mg/24 08-23 } Patch to ity of hour patch 00:00: 00:00 skin [place] 00 :00 daily. At [facility] the end of [place] the script call the office for refill at higher dosage. rivastigmin 2021- No [id number] 1{patch Apply 1 [facility] e 4.6 mg/24 08-23 } Patch to ity of hour patch 00:00: 00:00 skin [place] 00 :00 daily. At [facility] the end of [place] the script call the office for refill at higher dosage. MELOXICAM Yes [id number] 7.5mg TAKE 1 [facility] 7.5 mg 4-13 9109 TABLET BY ity of tablet 00:00: MOUTH [place] 00 DAILY Medical Branch MELOXICAM 2021-0 Yes [id number] 7.5mg TAKE 1 [facility] 7.5 mg 4-13 9109 TABLET BY ity of tablet 00:00: MOUTH [place] 00 DAILY Medical Branch MELOXICAM 2021-0 Yes [id number] 7.5mg TAKE 1 [facility] 7.5 mg 4-13 9109 TABLET BY ity of tablet 00:00: MOUTH [place] 00 DAILY Medical Branch MELOXICAM 2021-0 Yes [id number] 7.5mg TAKE 1 [facility] 7.5 mg 4-13 9109 TABLET BY ity of tablet 00:00: MOUTH [place] 00 DAILY Medical Branch MELOXICAM 2021-0 Yes [id number] 7.5mg TAKE 1 [facility] 7.5 mg 4-13 9109 TABLET BY ity of tablet 00:00: MOUTH [place] 00 DAILY Medical Branch MELOXICAM 2021-0 2021- No [id number] 7.5mg TAKE 1 [facility] 7.5 mg 4-13 08-18 9109 TABLET BY ity of tablet 00:00: 00:00 MOUTH [place] 00 :00 DAILY Medical Branch sulfamethox 2021-0 Yes Take by Uni vers azole/trime 3-08 mouth. ity of thoprim 15:29: [place] (BACTRIM DS 54 Medical ORAL) Branch sulfamethox 0 Yes Take by Uni vers azole/trime 3-08 mouth. ity of thoprim 15:29: [place] (BACTRIM DS 54 Medical ORAL) Branch sulfamethox 0 Yes Take by Uni vers azole/trime 3-08 mouth. ity of thoprim 15:29: [place] (BACTRIM DS 54 Medical ORAL) Branch sulfamethox 0 Yes Take by [facility] vers azole/trime 3-08 mouth. ity of thoprim 15:29: [place] (BACTRIM DS 54 Medical ORAL) Branch sulfamethox 0 Yes Take by Uni vers azole/trime 3-08 mouth. ity of thoprim 15:29: [place] (BACTRIM DS 54 Medical ORAL) Branch sulfamethox 0 Yes Take by [facility] vers azole/trime 3-08 mouth. ity of thoprim 15:29: [place] (BACTRIM DS 54 Medical ORAL) Branch sulfamethox 0 Yes Take by Uni vers azole/trime 3-08 mouth. ity of thoprim 15:29: [place] (BACTRIM DS 54 Medical ORAL) Branch sulfamethox Yes Take by [facility] vers azole/trime 3-08 mouth. ity of thoprim 15:29: [place] (BACTRIM DS 54 Medical ORAL) Branch sulfamethox Yes Take by Uni vers azole/trime 3-08 mouth. ity of thoprim 15:29: [place] (BACTRIM DS 54 Medical ORAL) Branch propranolol 0 Yes Take by Uni vers HCl 3-08 mouth. ity of (PROPRANOLO 15:28: [place] L ORAL) 03 Medical Branch propranolol 0 Yes Take by Uni vers HCl 3-08 mouth. ity of (PROPRANOLO 15:28: [place] L ORAL) 03 Medical Branch propranolol 2021-0 Yes Take by Uni vers HCl 3-08 mouth. ity of (PROPRANOLO 15:28: [place] L ORAL) 03 Medical Branch propranolol 2021-0 Yes Take by Uni vers HCl 3-08 mouth. ity of (PROPRANOLO 15:28: [place] L ORAL) 03 Medical Branch propranolol 2021-0 Yes Take by Uni vers HCl 3-08 mouth. ity of (PROPRANOLO 15:28: [place] L ORAL) 03 Medical Branch propranolol 0 Yes Take by [facility] vers HCl 3-08 mouth. ity of (PROPRANOLO 15:28: [place] L ORAL) 03 Medical Branch propranolol 2021-0 Yes Take by [facility] vers HCl 3-08 mouth. ity of (PROPRANOLO 15:28: [place] L ORAL) 03 Medical Branch propranolol 2021-0 Yes Take by [facility] vers HCl 3-08 mouth. ity of (PROPRANOLO 15:28: [place] L ORAL) 03 Medical Branch propranolol 2021-0 Yes Take by [facility] vers HCl 3-08 mouth. ity of (PROPRANOLO 15:28: [place] L ORAL) 03 Medical Branch SERTraline 2021-0 Yes 100mg Take 1 Univ ers 100 mg 3-02 tablet by ity of tablet 00:00: mouth [place] 00 daily. Medical Branch SERTraline 2021-0 Yes 100mg Take 1 [facility] ers 100 mg 3-02 tablet by ity of tablet 00:00: mouth [place] 00 daily. Medical Branch SERTraline 2021-0 Yes 100mg Take 1 [facility] ers 100 mg 3-02 tablet by ity of tablet 00:00: mouth [place] 00 daily. Medical Branch SERTraline 2021-0 Yes 100mg Take 1 Univ ers 100 mg 3-02 tablet by ity of tablet 00:00: mouth [place] 00 daily. Medical Branch SERTraline 2021-0 2022- No 100mg Take 1 [facility] vers 100 mg 3-02 06-10 tablet by ity of tablet 00:00: 00:00 mouth [place] 00 :00 daily. Medical Branch spironolact 2021-0 Yes [id number] 25mg Take 1 [facility] one 2-07 tablet by ity of (ALDACTONE) 00:00: mouth [place] 25 mg 00 daily. Medical tablet Branch spironolact 2021-0 Yes [id number] 25mg Take 1 [facility] one 2-07 tablet by ity of (ALDACTONE) 00:00: mouth [place] 25 mg 00 daily. Medical tablet Branch spironolact 2-0 2022- No [id number] 25mg Take 1 [facility] one 2-07 05-16 tablet by ity of (ALDACTONE) 00:00: 00:00 [place] 25 mg 00 :00 daily. Medical tablet Branch lactulose 2021-0 Yes [id number] 15mL Take 15 mL [facility] 10 gram/15 1-02 by mouth 2 ity of mL solution 00:00: (two) [place] 00 times Medical daily as Branch needed for Constipati on. lactulose 2022-0 Yes [id number] 15mL Take 15 mL [facility] 10 gram/15 1-02 by mouth 2 ity of mL solution 00:00: (two) [place] 00 times Medical daily as Branch needed for Constipati on. lactulose 2021-0 Yes [id number] 15mL Take 15 mL [facility] 10 gram/15 1-02 by mouth 2 ity of mL solution 00:00: (two) [place] 00 times Medical daily as Branch needed for Constipati on. lactulose 2021-0 Yes [id number] 15mL Take 15 mL [facility] 10 gram/15 1-02 by mouth 2 ity of mL solution 00:00: (two) [place] 00 times Medical daily as Branch needed for Constipati on. lactulose 2021-0 Yes [id number] 15mL Take 15 mL [facility] 10 gram/15 1-02 by mouth 2 ity of mL solution 00:00: (two) [place] 00 times Medical daily as Branch needed for Constipati on. lactulose 2021-0 Yes [id number] 15mL Take 15 mL [facility] 10 gram/15 1-02 by mouth 2 ity of mL solution 00:00: (two) [place] 00 times Medical daily as Branch needed for Constipati on. lactulose 2021-0 Yes [id number] 15mL Take 15 mL [facility] 10 gram/15 1-02 by mouth 2 ity of mL solution 00:00: (two) [place] 00 times Medical daily as Branch needed for Constipati on. lactulose 2021-0 Yes [id number] 15mL Take 15 mL [facility] 10 gram/15 1-02 by mouth 2 ity of mL solution 00:00: (two) [place] 00 times Medical daily as Branch needed for Constipati on. lactulose 2021-0 Yes [id number] 15mL Take 15 mL [facility] 10 gram/15 1-02 by mouth 2 ity of mL solution 00:00: (two) [place] 00 times Medical daily as Branch needed for Constipati on. lactulose 2-0 2- No [id number] 15mL Take 15 mL [facility] 10 gram/15 1-02 - by mouth 2 it y of mL solution 00:00: 00:00 (two[place] :[place] times Medical daily as Branch needed for Constipati on. lactulose 2-0 2022- No [id number] 15mL Take 15 mL [facility] 10 gram/15 1-02 -26 by mouth 2 it y of mL solution 00:00: 00:00 (two[place] :[place] times Medical daily as Branch needed for Constipati on. zinc 2020-05 Yes TAKE 1 [facility] sulfate 50 0-21 CAPSULE BY ity of mg zinc 00:00: MOUTH [place] (220 mg) 00 TWICE Medical capsule DAILY FOR Branch 30 DAYS THEN 1 CAPSULE DAILY FOR 60 DAYS zinc 2020-05 Yes TAKE 1 [facility] sulfate 50 0-21 CAPSULE BY ity of mg zinc 00:00: MOUTH [place] (220 mg) 00 TWICE Medical capsule DAILY FOR Branch 30 DAYS THEN 1 CAPSULE DAILY FOR 60 DAYS zinc 2020-05 Yes TAKE 1 [facility] sulfate 50 0-21 CAPSULE BY ity of mg zinc 00:00: MOUTH [place] (220 mg) 00 TWICE Medical capsule DAILY FOR Branch 30 DAYS THEN 1 CAPSULE DAILY FOR 60 DAYS zinc 2020-05 Yes TAKE 1 [facility] sulfate 50 0-21 CAPSULE BY ity of mg zinc 00:00: MOUTH [place] (220 mg) 00 TWICE Medical capsule DAILY FOR Branch 30 DAYS THEN 1 CAPSULE DAILY FOR 60 DAYS zinc 2020-05 Yes TAKE 1 [facility] sulfate 50 0-21 CAPSULE BY ity of mg zinc 00:00: MOUTH [place] (220 mg) 00 TWICE Medical capsule DAILY FOR Branch 30 DAYS THEN 1 CAPSULE DAILY FOR 60 DAYS zinc 2020-05 Yes TAKE 1 [facility] sulfate 50 0-21 CAPSULE BY ity of mg zinc 00:00: MOUTH [place] (220 mg) 00 TWICE Medical capsule DAILY FOR Branch 30 DAYS THEN 1 CAPSULE DAILY FOR 60 DAYS zinc 2020-05 Yes TAKE 1 [facility] sulfate 50 0-21 CAPSULE BY ity of mg zinc 00:00: MOUTH [place] (220 mg) 00 TWICE Medical capsule DAILY FOR Branch 30 DAYS THEN 1 CAPSULE DAILY FOR 60 DAYS zinc 2020-05 Yes TAKE 1 [facility] sulfate 50 0-21 CAPSULE BY ity of mg zinc 00:00: MOUTH [place] (220 mg) 00 TWICE Medical capsule DAILY FOR Branch 30 DAYS THEN 1 CAPSULE DAILY FOR 60 DAYS zinc 2020-05 Yes TAKE 1 [facility] sulfate 50 0-21 CAPSULE BY ity of mg zinc 00:00: MOUTH [place] (220 mg) 00 TWICE Medical capsule DAILY FOR Branch 30 DAYS THEN 1 CAPSULE DAILY FOR 60 DAYS zinc 2020-05- No TAKE 1 [facility] sulfate 50 0-21 10-26 CAPSULE BY it y of mg zinc 00:00: 00:00 MOUTH [place] (220 mg) 00 :00 TWICE Medical capsule DAILY FOR Branch 30 DAYS THEN 1 CAPSULE DAILY FOR 60 DAYS zinc 2020-05- No TAKE 1 [facility] sulfate 50 0-21 10-26 CAPSULE BY it y of mg zinc 00:00: 00:00 MOUTH [place] (220 mg) 00 :00 TWICE Medical capsule DAILY FOR Branch 30 DAYS THEN 1 CAPSULE DAILY FOR 60 DAYS buPROPion Yes [id number] 150mg Take 1 U nivers SR 150 mg 5-17 tablet by ity o f SR tablet 00:00: mouth [place] 00 every Medical morning. Branch ARIPiprazol Yes [id number] 10mg Take 1 [facility] e 10 mg 5-17 tablet by ity of tablet 00:00: mouth [place] 00 every Medical morning. Branch losartan Yes [id number] 100mg Take 1 [facility] vers 100 mg 5-17 tablet by ity of tablet 00:00: mouth [place] 00 daily. Medical Branch ARIPiprazol Yes [id number] 10mg Take 1 [facility] e 10 mg 5-17 tablet by ity of tablet 00:00: mouth [place] 00 every Medical morning. Branch losartan Yes [id number] 100mg Take 1 [facility] vers 100 mg 5-17 tablet by ity of tablet 00:00: mouth [place] 00 daily. Medical Branch ARIPiprazol Yes [id number] 10mg Take 1 [facility] e 10 mg 5-17 tablet by ity of tablet 00:00: mouth [place] 00 every Medical morning. Branch losartan Yes [id number] 100mg Take 1 [facility] vers 100 mg 5-17 tablet by ity of tablet 00:00: mouth [place] 00 daily. Medical Branch ARIPiprazol Yes [id number] 10mg Take 1 [facility] e 10 mg 5-17 tablet by ity of tablet 00:00: mouth [place] 00 every Medical morning. Branch ARIPiprazol 2021- No [id number] 10mg Take 1 [facility] e 10 mg 5-17 06-10 tablet by ity of tablet 00:00: 00:00 mouth [place] 00 :00 every Medical morning. Branch losartan 2021- No [id number] 100mg Take 1 Un flakita 100 mg 5-17 05-16 tablet by ity of tablet 00:00: 00:00 mouth [place] 00 :00 daily. Medical Branch buPROPion 2021- No [id number] 150mg Take 1 [facility] SR 150 mg 5-17 05-09 tablet by ity of SR tablet 00:00: 00:00 mouth [place] 00 :00 every Medical morning. Branch Immunizations Ordered Filled Immunization Date Status Comments [facility] e Immunization Name Name Influenza Virus 2021-07-12 Completed Universit y of Vaccine,quad 00:00:00 [place] [facility] 65+ Influenza Virus 2021-07-12 Completed Universit y of Vaccine,quad 00:00:00 [place] [facility] Branch 65+ Influenza Virus 2021-07-12 Completed Universit y of Vaccine,quad 00:00:00 [place] [facility] Branch 65+ Influenza Virus 2021-07-12 Completed Universit y of Vaccine,quad 00:00:00 [place] [facility] Free Branch 65+ Influenza Virus 2021-07-12 Completed Universit y of Vaccine,quad 00:00:00 [place] [facility] Branch 65+ Influenza Virus 2021-07-12 Completed Universit y of Vaccine,quad 00:00:00 [place] [facility] Free Branch 65+ Influenza Virus 2021-07-12 Completed Universit y of Vaccine,quad 00:00:00 [place] [facility] Branch 65+ Influenza Virus 2021-07-12 Completed Universit y of Vaccine,quad 00:00:00 [place] [facility],preserve Free Branch 65+ Influenza Virus 2021-07-12 Completed Universit y of Vaccine,quad 00:00:00 [place] [facility],preserve Free Branch 65+ Influenza Virus 2021-07-12 Completed Universit y of Vaccine,quad 00:00:00 [place] [facility] Free Branch 65+ Influenza Virus 2021-07-12 Completed Universit y of Vaccine,quad 00:00:00 [place] [facility],preserve Free Branch 65+ Influenza Virus 2021-07-12 Completed Universit y of Vaccine,quad 00:00:00 [place] [facility],preserve Free Branch 65+ Influenza Virus 2021-07-12 Completed Universit y of Vaccine,quad 00:00:00 [place] [facility] Im,preserve Free Branch 65+ Influenza Virus 2021-07-12 Completed Universit y of Vaccine,quad 00:00:00 [place] [facility],preserve Free Branch 65+ Influenza Virus 2021-07-12 Completed Universit y of Vaccine,quad 00:00:00 [place] [facility] Im,preserve Free Branch 65+ Influenza Virus 2021-07-12 Completed Universit y of Vaccine,quad 00:00:00 [place] [facility] Im,preserve Free Branch 65+ Influenza Virus 2021-07-12 Completed Universit y of Vaccine,quad 00:00:00 [place] [facility],preserve Free Branch 65+ Influenza Virus 2021-07-12 Completed Universit y of Vaccine,quad 00:00:00 [place] [facility] Im,preserve Free Branch 65+ Influenza Virus 2021-07-12 Completed Universit y of Vaccine,quad 00:00:00 [place] [facility],preserve Free Branch 65+ Influenza Virus 2021-07-12 Completed Universit y of Vaccine,quad 00:00:00 [place] [facility] Im,preserve Free Branch 65+ Influenza Virus 2021-07-12 Completed Universit y of Vaccine,quad 00:00:00 [place] [facility] Im,preserve Free Branch 65+ Influenza Virus 2021-07-12 Completed Universit y of Vaccine,quad 00:00:00 [place] [facility] Im,preserve Free Branch 65+ HEP B, Adult Dosage 2021-03-01 Completed Unive rsity of 00:00:00 [place] [facility] HEP B, Adult Dosage 2021-03-01 Completed Unive rsity of 00:00:00 [place] [facility] HEP B, Adult Dosage 2021-03-01 Completed Unive rsity of 00:00:00 [place] [facility] HEP B, Adult Dosage 2021-03-01 Completed Unive rsity of 00:00:00 [place] [facility] HEP B, Adult Dosage 2021-03-01 Completed Unive rsity of 00:00:00 [place] [facility] HEP B, Adult Dosage 2021-03-01 Completed Unive rsity of 00:00:00 [place] [facility] HEP B, Adult Dosage 2021-03-01 Completed Unive rsity of 00:00:00 [place] [facility] HEP B, Adult Dosage 2021-03-01 Completed Unive rsity of 00:00:00 [place] [facility] HEP B, Adult Dosage 2021-03-01 Completed Unive rsity of 00:00:00 [place] [facility] HEP B, Adult Dosage 2021-03-01 Completed Unive rsity of 00:00:00 [place] [facility] HEP B, Adult Dosage 2021-03-01 Completed Unive rsity of 00:00:00 [place] [facility] HEP B, Adult Dosage 2021-03-01 Completed Unive rsity of 00:00:00 [place] [facility] HEP B, Adult Dosage 2021-03-01 Completed Unive rsity of 00:00:00 [place] [facility] HEP B, Adult Dosage 2021-03-01 Completed Unive rsity of 00:00:00 [place] [facility] HEP B, Adult Dosage 2021-03-01 Completed Unive rsity of 00:00:00 [place] [facility] HEP B, Adult Dosage 2021-03-01 Completed Unive rsity of 00:00:00 [place] [facility] HEP B, Adult Dosage 2021-03-01 Completed Unive rsity of 00:00:00 [facility] Branch HEP B, Adult Dosage 2021-03-01 Completed Unive rsity of 00:00:00 [place] [facility] HEP B, Adult Dosage 2021-03-01 Completed Unive rsity of 00:00:00 [place] [facility] HEP B, Adult Dosage 2021-03-01 Completed Unive rsity of 00:00:00 [place] [facility] HEP B, Adult Dosage 2021-03-01 Completed Unive rsity of 00:00:00 [facility] Branch HEP B, Adult Dosage 2021-03-01 Completed Unive rsity of 00:00:00 [facility] [facility] SARS-COV-2 COVID-19 2021-02-19 Completed Unive rsity of MODERNA VACCINE 00:00:00 [facility] SARS-COV-2 COVID-19 2021-02-19 Completed Unive rsity of MODER[place] VACCINE 00:00:00 [facility] SARS-COV-2 COVID-19 2021-02-19 Completed Unive rsity of [facility]ER[place] VACCINE 00:00:00 [facility] SARS-COV-2 COVID-19 2021-02-19 Completed Unive rsity of [facility] VACCINE 00:00:00 [facility] SARS-COV-2 COVID-19 2021-02-19 Completed Unive rsity of MODER[place] VACCINE 00:00:00 [facility] SARS-COV-2 COVID-19 2021-02-19 Completed Un[facility] of MODER[facility] VACCINE 00:00:00 [facility] SARS-COV-2 COVID-19 2021-02-19 Completed [facility]ive rsity of MODERNA VACCINE 00:00:00 [facility] SARS-COV-2 COVID-19 2021-02-19 Completed Unive rsity of MODERNA 12+ YRS 00:00:00 [place] [facility] SARS-COV-2 COVID-19 2021-02-19 Completed Unive rsity of MODERNA 12+ YRS 00:00:00 [place] [facility] SARS-COV-2 COVID-19 2021-02-19 Completed Unive rsity of MODERNA 12+ YRS 00:00:00 [place] [facility] SARS-COV-2 COVID-19 2021-02-19 Completed Unive rsity of MODERNA 12+ YRS 00:00:00 [place] [facility] SARS-COV-2 COVID-19 2021-02-19 Completed Unive rsity of MODERNA 12+ YRS 00:00:00 [place] [facility] SARS-COV-2 COVID-19 2021-02-19 Completed Unive rsity of MODERNA 12+ YRS 00:00:00 [place] [facility] SARS-COV-2 COVID-19 2021-02-19 Completed Unive rsity of MODERNA 12+ YRS 00:00:00 [place] [facility] SARS-COV-2 COVID-19 2021-02-19 Completed Unive rsity of MODERNA 12+ YRS 00:00:00 [place] [facility] SARS-COV-2 COVID-19 2021-02-19 Completed Unive rsity of MODERNA 12+ YRS 00:00:00 [place] [facility] SARS-COV-2 COVID-19 2021-02-19 Completed Unive rsity of MODERNA 12+ YRS 00:00:00 [place] [facility] SARS-COV-2 COVID-19 2021-02-19 Completed Unive rsity of MODERNA 12+ YRS 00:00:00 [place] [facility] SARS-COV-2 COVID-19 2021-02-19 Completed Unive rsity of MODERNA 12+ YRS 00:00:00 [place] [facility] SARS-COV-2 COVID-19 2021-02-19 Completed Unive rsity of MODERNA 12+ YRS 00:00:00 [facility] VACCINE Branch SARS-COV-2 COVID-19 2021-02-19 Completed Unive rsity of MODERNA 12+ YRS 00:00:00 [facility] VACCINE Branch SARS-COV-2 COVID-19 2021-02-19 Completed Unive rsity of MODERNA 12+ YRS 00:00:00 [facility] VACCINE Branch Influenza Virus 2021-02-04 Completed Universit y of Vaccine 00:00:00 [facility] Influenza Virus 2021-02-04 Completed Universit y of Vaccine 00:00:00 [facility] Influenza Virus 2021-02-04 Completed Universit y of Vaccine 00:00:00 [facility] Influenza Virus 2021-02-04 Completed Universit y of Vaccine 00:00:00 [facility] Influenza Virus 2021-02-04 Completed Universit y of Vaccine 00:00:00 [facility] Influenza Virus 2021-02-04 Completed Universit y of Vaccine 00:00:00 [facility] Influenza Virus 2021-02-04 Completed Universit y of Vaccine 00:00:00 [facility] Influenza Virus 2021-02-04 Completed Universit y of Vaccine 00:00:00 [facility] Influenza Virus 2021-02-04 Completed Universit y of Vaccine 00:00:00 [facility] Influenza Virus 2021-02-04 Completed Universit y of Vaccine 00:00:00 [facility] Influenza Virus 2021-02-04 Completed Universit y of Vaccine 00:00:00 [facility] Influenza Virus 2021-02-04 Completed Universit y of Vaccine 00:00:00 [facility] Influenza Virus 2021-02-04 Completed Universit y of Vaccine 00:00:00 [facility] Influenza Virus 2021-02-04 Completed Universit y of Vaccine 00:00:00 [facility] Influenza Virus 2021-02-04 Completed Universit y of Vaccine 00:00:00 [facility] Influenza Virus 2021-02-04 Completed Universit y of Vaccine 00:00:00 [facility] Influenza Virus 2021-02-04 Completed Universit y of Vaccine 00:00:00 [facility] Influenza Virus 2021-02-04 Completed Universit y of Vaccine 00:00:00 [facility] Influenza Virus 2021-02-04 Completed Universit y of Vaccine 00:00:00 [facility] Influenza Virus 2021-02-04 Completed Universit y of Vaccine 00:00:00 [facility] Influenza Virus 2021-02-04 Completed Universit y of Vaccine 00:00:00 [facility] Influenza Virus 2021-02-04 Completed Universit y of Vaccine 00:00:00 [facility] SARS-COV-2 COVID-19 2020-12-24 Completed Unive rsity of MODERNA VACCINE 00:00:00 [facility] ical Branch SARS-COV-2 COVID-19 2020-12-24 Completed Unive rsity of MODERNA VACCINE 00:00:00 [facility] ical Branch SARS-COV-2 COVID-19 2020-12-24 Completed [facility]ive rsity of MODERNA VACCINE 00:00:00 [facility] SARS-COV-2 COVID-19 2020-12-24 Completed Unive rsity of MODERNA VACCINE 00:00:00 [facility] ical Branch SARS-COV-2 COVID-19 2020-12-24 Completed Unive rsity of MODERNA VACCINE 00:00:00 [facility] ical Branch SARS-COV-2 COVID-19 2020-12-24 Completed Unive rsity of MODERNA VACCINE 00:00:00 [facility] ical Branch SARS-COV-2 COVID-19 2020-12-24 Completed Unive rsity of MODERNA VACCINE 00:00:00 [facility] ical Branch SARS-COV-2 COVID-19 2020-12-24 Completed Unive rsity of MODERNA 12+ YRS 00:00:00 [facility] ical VACCINE Branch SARS-COV-2 COVID-19 2020-12-24 Completed Unive rsity of MODERNA 12+ YRS 00:00:00 [facility] ical VACCINE Branch SARS-COV-2 COVID-19 2020-12-24 Completed Unive rsity of MODERNA 12+ YRS 00:00:00 [facility] ical VACCINE Branch SARS-COV-2 COVID-19 2020-12-24 Completed Unive rsity of MODERNA 12+ YRS 00:00:00 [facility] ical VACCINE Branch SARS-COV-2 COVID-19 2020-12-24 Completed Unive rsity of MODERNA 12+ YRS 00:00:00 [place] [facility] SARS-COV-2 COVID-19 2020-12-24 Completed Unive rsity of MODERNA 12+ YRS 00:00:00 [place] [facility] SARS-COV-2 COVID-19 2020-12-24 Completed Unive rsity of MODERNA 12+ YRS 00:00:00 [place] [facility] SARS-COV-2 COVID-19 2020-12-24 Completed Unive rsity of MODERNA 12+ YRS 00:00:00 [place] [facility] SARS-COV-2 COVID-19 2020-12-24 Completed Unive rsity of MODERNA 12+ YRS 00:00:00 [place] [facility] SARS-COV-2 COVID-19 2020-12-24 Completed Unive rsity of MODERNA 12+ YRS 00:00:00 [place] [facility] SARS-COV-2 COVID-19 2020-12-24 Completed Unive rsity of MODERNA 12+ YRS 00:00:00 [place] [facility] SARS-COV-2 COVID-19 2020-12-24 Completed Unive rsity of MODERNA 12+ YRS 00:00:00 [place] [facility] SARS-COV-2 COVID-19 2020-12-24 Completed Unive rsity of MODERNA 12+ YRS 00:00:00 [place] [facility] SARS-COV-2 COVID-19 2020-12-24 Completed Unive rsity of MODERNA 12+ YRS 00:00:00 [facility] SARS-COV-2 COVID-19 2020-12-24 Completed Unive rsity of MODERNA 12+ YRS 00:00:00 [place] [facility] VACCINE [facility] HEP B, Adult Dosage 2020-09-29 Completed [facility]ive rsity of 00:00:00 [facility] HEP B, Adult Dosage 2020-09-29 Completed Unive rsity of 00:00:00 [facility] HEP B, Adult Dosage 2020-09-29 Completed Unive rsity of 00:00:00 [facility] HEP B, Adult Dosage 2020-09-29 Completed Unive rsity of 00:00:00 [facility] HEP B, Adult Dosage 2020-09-29 Completed Unive rsity of 00:00:00 [facility] HEP B, Adult Dosage 2020-09-29 Completed Unive rsity of 00:00:00 [facility] HEP B, Adult Dosage 2020-09-29 Completed Unive rsity of 00:00:00 [facility] HEP B, Adult Dosage 2020-09-29 Completed Unive rsity of 00:00:00 [facility] HEP B, Adult Dosage 2020-09-29 Completed Unive rsity of 00:00:00 [facility] HEP B, Adult Dosage 2020-09-29 Completed Unive rsity of 00:00:00 [facility] HEP B, Adult Dosage 2020-09-29 Completed Unive rsity of 00:00:00 [facility] HEP B, Adult Dosage 2020-09-29 Completed Unive rsity of 00:00:00 [facility] HEP B, Adult Dosage 2020-09-29 Completed Unive rsity of 00:00:00 [facility] HEP B, Adult Dosage 2020-09-29 Completed Unive rsity of 00:00:00 [facility] HEP B, Adult Dosage 2020-09-29 Completed Unive rsity of 00:00:00 [facility] HEP B, Adult Dosage 2020-09-29 Completed Unive rsity of 00:00:00 [facility] HEP B, Adult Dosage 2020-09-29 Completed Unive rsity of 00:00:00 [facility] HEP B, Adult Dosage 2020-09-29 Completed Unive rsity of 00:00:00 [facility] HEP B, Adult Dosage 2020-09-29 Completed Unive rsity of 00:00:00 [facility] HEP B, Adult Dosage 2020-09-29 Completed Unive rsity of 00:00:00 [facility] HEP B, Adult Dosage 2020-09-29 Completed Unive rsity of 00:00:00 [facility] HEP B, Adult Dosage 2020-09-29 Completed Unive rsity of 00:00:00 [facility] HEP B, Adult Dosage 2020-08-30 Completed Unive rsity of 00:00:00 [facility] HEP B, Adult Dosage 2020-08-30 Completed Unive rsity of 00:00:00 [facility] HEP B, Adult Dosage 2020-08-30 Completed Unive rsity of 00:00:00 [facility] HEP B, Adult Dosage 2020-08-30 Completed Unive rsity of 00:00:00 [facility] HEP B, Adult Dosage 2020-08-30 Completed Unive rsity of 00:00:00 [facility] HEP B, Adult Dosage 2020-08-30 Completed Unive rsity of 00:00:00 [facility] HEP B, Adult Dosage 2020-08-30 Completed Unive rsity of 00:00:00 [facility] HEP B, Adult Dosage 2020-08-30 Completed Unive rsity of 00:00:00 [facility] HEP B, Adult Dosage 2020-08-30 Completed Unive rsity of 00:00:00 [facility] HEP B, Adult Dosage 2020-08-30 Completed Unive rsity of 00:00:00 [facility] HEP B, Adult Dosage 2020-08-30 Completed Unive rsity of 00:00:00 [facility] HEP B, Adult Dosage 2020-08-30 Completed Unive rsity of 00:00:00 [facility] HEP B, Adult Dosage 2020-08-30 Completed Unive rsity of 00:00:00 [facility] HEP B, Adult Dosage 2020-08-30 Completed Unive rsity of 00:00:00 [facility] HEP B, Adult Dosage 2020-08-30 Completed Unive rsity of 00:00:00 [facility] HEP B, Adult Dosage 2020-08-30 Completed Unive rsity of 00:00:00 [facility] HEP B, Adult Dosage 2020-08-30 Completed Unive rsity of 00:00:00 [facility] HEP B, Adult Dosage 2020-08-30 Completed Unive rsity of 00:00:00 [facility] HEP B, Adult Dosage 2020-08-30 Completed Unive rsity of 00:00:00 [facility] HEP B, Adult Dosage 2020-08-30 Completed Unive rsity of 00:00:00 [facility] HEP B, Adult Dosage 2020-08-30 Completed Unive rsity of 00:00:00 [facility] HEP B, Adult Dosage 2020-08-30 Completed Unive rsity of 00:00:00 [facility] Influenza High Dose 2020-04-26 Completed Unive rsity of [place] 00:00:00 [facility] Influenza High Dose 2020-04-26 Completed Unive rsity of [place] 00:00:00 [facility] Influenza High Dose 2020-04-26 Completed Unive rsity of [place] 00:00:00 [facility] Influenza High Dose 2020-04-26 Completed Unive [facility] of [place] 00:00:00 [facility] Influenza High Dose 2020-04-26 Completed Unive rsity of [place] 00:00:00 [facility] Influenza High Dose 2020-04-26 Completed Unive [facility] of [place] 00:00:00 [facility] Influenza High Dose 2020-04-26 Completed Unive [facility] of [place] 00:00:00 [facility] Influenza High Dose 2020-04-26 Completed Unive [facility] of [place] 00:00:00 [facility] Influenza High Dose 2020-04-26 Completed Unive [facility] of [place] 00:00:00 [facility] Influenza High Dose 2020-04-26 Completed Unive [facility] of [place] 00:00:00 [facility] Influenza High Dose 2020-04-26 Completed Unive rsity of [place] 00:00:00 [facility] Influenza High Dose 2020-04-26 Completed Unive rsity of [place] 00:00:00 [facility] Influenza High Dose 2020-04-26 Completed Unive rsity of [place] 00:00:00 [facility] Influenza High Dose 2020-04-26 Completed Unive rsity of [place] 00:00:00 [facility] Influenza High Dose 2020-04-26 Completed Unive rsity of [place] 00:00:00 [facility] Influenza High Dose 2020-04-26 Completed Unive [facility]ity of [place] 00:00:00 [facility] Influenza High Dose 2020-04-26 Completed Unive [facility] of [place] 00:00:00 [facility] Influenza High Dose 2020-04-26 Completed Unive [facility] of [place] 00:00:00 [facility] Influenza High Dose 2020-04-26 Completed Unive [facility] of [place] 00:00:00 [facility] Influenza High Dose 2020-04-26 Completed Unive rsity of [place] 00:00:00 [facility] Influenza High Dose 2020-04-26 Completed Unive [facility]ity of [place] 00:00:00 [facility] Influenza High Dose 2020-04-26 Completed Unive [facility]ity of [place] 00:00:00 [facility] Influenza High Dose 2019-04-04 Completed Unive rsity of 00:00:00 [facility] Influenza High Dose 2019-04-04 Completed Unive rsity of 00:00:00 [facility] Influenza High Dose 2019-04-04 Completed Unive rsity of 00:00:00 [facility] Influenza High Dose 2019-04-04 Completed Unive rsity of 00:00:00 [facility] Influenza High Dose 2019-04-04 Completed Unive rsity of 00:00:00 [facility] Influenza High Dose 2019-04-04 Completed Unive rsity of 00:00:00 [facility] Influenza High Dose 2019-04-04 Completed Unive rsity of 00:00:00 [facility] Influenza High Dose 2019-04-04 Completed Unive rsity of 00:00:00 [facility] Influenza High Dose 2019-04-04 Completed Unive rsity of 00:00:00 [facility] Influenza High Dose 2019-04-04 Completed Unive rsity of 00:00:00 [facility] Influenza High Dose 2019-04-04 Completed Unive rsity of 00:00:00 [facility] Influenza High Dose 2019-04-04 Completed Unive rsity of 00:00:00 [facility] Influenza High Dose 2019-04-04 Completed Unive rsity of 00:00:00 [facility] Influenza High Dose 2019-04-04 Completed Unive rsity of 00:00:00 [facility] Influenza High Dose 2019-04-04 Completed Unive rsity of 00:00:00 [facility] Influenza High Dose 2019-04-04 Completed Unive rsity of 00:00:00 [facility] Influenza High Dose 2019-04-04 Completed Unive rsity of 00:00:00 [facility] Influenza High Dose 2019-04-04 Completed Unive rsity of 00:00:00 [facility] Influenza High Dose 2019-04-04 Completed Unive rsity of 00:00:00 [facility] Influenza High Dose 2019-04-04 Completed Unive rsity of 00:00:00 [facility] Influenza High Dose 2019-04-04 Completed Unive rsity of 00:00:00 [facility] Influenza High Dose 2019-04-04 Completed Unive rsity of 00:00:00 [facility] Vital Signs Vital Name Observation Time Observation Value Comments Source Systolic blood 2022-10-03 14:34:00 118 mm[Hg] Univer [facility]ity of pressure [facility] Diastolic blood 2022-10-03 14:34:00 73 mm[Hg] Unive rsity of pressure [facility] Heart rate 2022-10-03 14:34:00 68 /min [facility] Respiratory rate 2022-10-03 14:34:00 18 /min Univ ersity of [facility] Body height 2022-10-03 14:34:00 157.5 cm [facility] Body weight 2022-10-03 14:34:00 64.411 kg [facility] BMI 2022-10-03 14:34:00 25.97 kg/m2 [facility] Oxygen saturation in 2022-10-03 14:34:00 97 /min University of Arterial blood by [place] [facility] Pulse oximetry Branch Systolic blood 2022-09-26 15:33:00 103 mm[Hg] Univer sity of pressure [facility] Diastolic blood 2022-09-26 15:33:00 65 mm[Hg] Unive rsity of pressure [facility] Heart rate 2022-09-26 15:33:00 78 /min [facility] Body temperature 2022-09-26 15:33:00 37 [place] Univ ersity of [facility] Respiratory rate 2022-09-26 15:33:00 18 /min Univ ersity of [facility] Body height 2022-09-26 15:33:00 152.4 cm [facility] Body weight 2022-09-26 15:33:00 63.005 kg [facility] BMI 2022-09-26 15:33:00 27.13 kg/m2 [facility] Oxygen saturation in 2022-09-26 15:33:00 100 /min University of Arterial blood by [facility] shanel Pulse oximetry Branch Systolic blood 2022-09-12 12:19:00 134 mm[Hg] Univer sity of pressure [facility] Diastolic blood 2022-09-12 12:19:00 82 mm[Hg] Unive rsity of pressure [facility] Heart rate 2022-09-12 12:19:00 75 /min [facility] Body height 2022-09-12 12:19:00 157.5 cm [facility] Body weight 2022-09-12 12:19:00 66.044 kg [facility] BMI 2022-09-12 12:19:00 26.63 kg/m2 [facility] Oxygen saturation in 2022-09-12 12:19:00 99 /min University of Arterial blood by [facility] Pulse oximetry Branch Systolic blood 2022-03-01 13:14:00 113 mm[Hg] Univer sity of pressure [facility] Diastolic blood 2022-03-01 13:14:00 78 mm[Hg] Unive rsity of [facility] Heart rate 2022-03-01 13:14:00 71 /min [facility] [place] [facility] [place] Body temperature 2022-03-01 13:14:00 36.78 [place] Univ ersity of [facility] Body height 2022-03-01 13:14:00 158.8 cm Universi ty of [facility] Body weight 2022-03-01 13:14:00 66.225 kg [facility] BMI 2022-03-01 13:14:00 26.28 kg/m2 [facility] Oxygen saturation in 2022-03-01 13:14:00 97 /min University of Arterial blood by [facility] Pulse oximetry Branch WEIGHT 2020-09-17 13:32:00 54.6 kg HEIGHT 2020-08-20 10:17:00 156 cm WEIGHT 2020-08-20 10:17:00 54.2 kg WEIGHT 2020-08-09 10:31:17 55.7 kg Procedures Procedure Date / Time Performed Performing Clinician Sourc e POCT URINALYSIS 2022-09-26 15:38:00 Katelyn Wiley o f [facility] Encounters Start End Encounter Admission Attending Care Care Encounter Source Date/Time Date/Time Type Type Clinicians Facility Department ID 2021-06-09 Outpatient MDA LUCIAN [id number] 17:47:12 [facility] 2021-06-09 Outpatient MDA LUCIAN [id number] 17:30:47 Andkun mederos 2021-03-[address] [facility] [id number] [facility] 17:59:01 ity of [facility] 2021-03-[address] [facility] [id number] Univers 15:44:41 [facility] 2021-01-06 Outpatient HELEN KARTHIKGeorgia EPSTEIN Markus/Hep/Nu [id number] 13:18:22 jasson mederos 2021-01-06 Outpatient LUCIAN BOOKER MDA [id number] 13:18:21 PROVIDER Will mederos 2023-10-02 2023-10-02 Outpatient Kareem REAGAN PAINTER [facility] [id number] Univers 08:00:00 08:00:00 REAGAN PAINTER [facility] 2023-03-15 2023-03-[address] [facility] [id number] Univers 07:00:00 07:00:00 JUAN JOSE [facility] 2022-11-11 2022-11-11 Refill Inocencio [facility] [id number] Univers 00:00:00 00:00:00 [facility] [id number] ity of [place] [id number] Elio as ANDREA?BLEA [id number] [address] OFFICE [facility] 2022-10-03 2022-10-03 Crushing Machine Operator Lab, Ang - [facility] 1.2.840.1 [id number] Univers 10:15:00 10:30:00 Visit Reagan Painter [facility] [id number] 10 ity of [place] [id number] Elio as ANDREA?BLEA [id number] [address] OFFICE [facility] 2022-10-03 2022-10-[address] [facility] [id number] Univers 09:20:00 10:16:03 REAGAN PAINTER melissa [facility] 2022-10-03 2022-10-03 Office Inocencio [facility] [id number] Univers 09:20:00 10:16:03 Visit [facility] [id number] ity of [place] [id number] Elio as ANDREA?BLEA [id number] [address] OFFICE [facility] 2022-10-03 2022-10-[address] [facility] [id number] Univers 08:00:00 08:00:00 MARSHALL sabinemelissa [facility] 2022-09-26 2022-09-26 Out[address] [facility] [id number] Univers 10:20:00 10:51:28 KATELYN regaladomelissa [facility] 2022-09-26 2022-09-26 Urgent Katelyn Wiley [facility] [id number] Univers 10:20:00 10:51:28 Care Unknown, Attending HEALTH [id number] ity of [place] [id number] Elio as ANDREA?BLEA [id number] Nh dicyuni JIMENEZ [address] [facility] OFFICE [facility] 2022-09-13 2022-09-13 Patient Doctor [facility] [id number] Univers 00:00:00 00:00:00 Secure Msg Unassigned, HEALTH [id number] ity of [place] [id number] Elio as ANDREA?BLEA [id number] Me dicyuni JIMENEZ 0[address] [facility] OFFICE [facility] 2022-09-13 2022-09-13 Patient Pirece [facility] [id number] Univers 00:00:00 00:00:00 Secure Msg Juan Jose HEALTH [id number] ity of [place] [id number] Elio as ANDREA?BLEA [id number] Nh dicyuni JIMENEZ 0[address] [facility] OFFICE [facility] 2022-09-12 2022-09-12 Crushing Machine Operator Lab, Ang - Db [facility] 1..840.1 [id number] Univers 07:45:00 08:00:00 [facility] [id number] ity of [place] [id number] Elio as ANDREA?BLEA [id number] Nh dicyuni JIMENEZ [address] [facility] OFFICE [facility] 2022-09-12 2022-09-[address] [facility] [id number] Univers 07:45:00 07:45:00 JUAN JOSE blanca [facility] 2022-09-12 2022-09-12 [facility] 1.2.840.114 [id number] Univers 07:30:00 07:45:00 Visit [facility] [id number] it y of [place] [id number] Elio as ANDREA?BLEA [id number] [address] OFFICE [facility] 2022-08-27 2022-08-27 [facility] [id number] [id number] Univers 00:00:00 00:00:00 [place] [facility] [id number] it y of [place] [id number] Elio as ANDREA?BLEA [id number] [address] OFFICE [facility] 2022-03-01 2022-03-01 Office [facility] [id number] [id number] Univers 08:30:00 08:45:00 Visit [facility] [id number] it y of [place] [id number] Elio as ANDREA?BLEA [id number] [address] OFFICE [facility] 2022-03-01 2022-03-[address] [facility] [id number] Univers 08:30:00 08:30:00 JUAN JOSE [facility] 2022-01-18 2022-01-18 [facility] [id number] [id number] Univers 00:00:00 00:00:00 [facility] [id number] it y of [place] [id number] Elio as ANDREA?BLEA [id number] [address] OFFICE [facility] 2022-01-14 2022-01-14 [facility] [id number] [id number] Univers 00:00:00 00:00:00 Juan Jose HEALTH 350.1.13.10 it y of [place] 4.2.7.2.686 Elio as ANDREA?BLEA [phone] [address] MEDICAL OFFICE [facility] 2021-12-272021-12-27 [facility] 1.2.840.114 [id number] Univers 00:00:00 00:00:00 Juan Jose HEALTH 350.1.13.10 it y of [place] 4.2.7.2.686 Elio as ANDREA?BLEA [phone] [address] OFFICE [facility] 2021-12-22 2021-12-22 [facility] 1.2.840.114 [id number] Univers 00:00:00 00:00:00 Juan Jose HEALTH 350.1.13.10 it y of [place] 4.2.7.2.686 Elio as ANDREA?BLEA [phone] [address] 2021-10-14 2021-10-14 [facility]ron [facility] 1.2.840.114 [id number] Univers 00:00:00 00:00:00 Juan Jose HEALTH 350.1.13.10 it y of [place] 4.2.7.2.686 Elio as ANDREA?BLEA [phone] [address] OFFICE [facility] 2021-09-19 2021-09-19 [facility]ron [facility] 1.2.840.114 [id number] Univers 00:00:00 00:00:00 Juan Jose HEALTH 350.1.13.10 it y of [place] 4.2.7.2.686 Elio as ANDREA?BLEA [phone] [address] OFFICE [facility] 2021-09-19 2021-09-19 [facility]ron [facility] 1.2.840.114 [id number] Univers 00:00:00 00:00:00 Juan Jose HEALTH 350.1.13.10 it y of [place] 4.2.7.2.686 Elio as ANDREA?BLEA [phone] [address] 2021-09-16 2021-09-16 Outpatient KACEY DOMÍNGUEZ MDA MDA [id number] 08:10:43 08:10:43 CAITLIN mederos 2021-09-12 2021-09-12 [facility]ron [facility] 1.2.840.114 [id number] Univers 00:00:00 00:00:00 [facility] 350.1.13.10 it y of [place] 4.2.7.2.686 Elio as ANDREA?BLEA [phone] Nh ewa JIMENEZ 044 [facility] OFFICE [facility] 2021-09-06 2021-09-06 Refill Inocencio, [facility] 1.2.840.114 [id number] Univers 00:00:00 00:00:00 [facility] 350.1.13.10 ity of [place] 4.2.7.2.686 Elio as ANDREA?BLEA [phone] Nh ewa RIVERA [address] [place] [address] OFFICE [facility] 2021-09-06 2021-09-06 Refill Inocencio, [facility] 1.2.840.114 [id number] Univers 00:00:00 00:00:00 [facility] 350.1.13.10 ity of [place] 4.2.7.2.686 Elio as ANDREA?BLEA [phone] Nh ewa RIVERA[address] OFFICE [facility] 2021-08-25 2021-08-25 Telephone [facility] 1.2.840.114 [id number] Univers 00:00:00 00:00:00 [facility] 350.1.13.10 ity of [place] 4.2.7.2.686 Elio as ANDREA?BLEA [phone] [address] 2021-08-25 2021-08-25 Telephone Inocencio, [facility] 1.2.840.114 [id number] Univers 00:00:00 00:00:00 [facility] 350.1.13.10 ity of [place] 4.2.7.2.686 Elio as ANDREA?BLEA [phone] [address] 2021-08-23 2021-08-23 Outpatient R REAGAN PAINTER [facility] [id number] Univers 10:40:00 13:03:29 REAGAN PAINTER ity of [facility] 2021-08-23 2021-08-23 Office Inocencio [facility] 1.2.840.114 [id number] Univers 10:40:00 13:03:29 Visit [facility] 350.1.13.10 ity of [place] 4.2.7.2.686 Elio as ANDREA?BLEA [phone] [address] OFFICE [facility] 2021-08-23 2021-08-23 Outpatient R INOCENCIO [facility] [id number] Univers 10:40:00 10:40:00 INOCENCIO, REAGAN ity of [facility] 2021-08-23 2021-08-23 Refrenetta [facility] 1.2.840.114 [id number] Univers 00:00:00 00:00:00 Juan Jose HEALTH 350.1.13.10 it y of [place] 4.2.7.2.686 Elio as ANDREA?BLEA [phone] [address] OFFICE [facility] 2021-08-17 2021-08-17 Telephone [facility] 1.2.840.114 [id number] Univers 00:00:00 00:00:00 [facility] 350.1.13.10 ity of [place] 4.2.7.2.686 Elio as ANDREA?BLEA [phone] [address] OFFICE [facility] 2021-08-17 2021-08-17 Refrenetta [facility] 1.2.840.114 [id number] Univers 00:00:00 00:00:00 [place] HEALTH 350.1.13.10 it y of [place] 4.2.7.2.686 Elio as ANDREA?BLEA [phone] [address] OFFICE [facility] 2021-08-16 2021-08-16 Telephone [facility] 1.2.487.523 [id number] Univers 00:00:00 00:00:00 Juan Jose HEALTH 350.1.13.10 it y of [place] 4.2.7.2.686 Elio as ANDREA?BLEA [phone] [address] OFFICE [facility] 2021-08-15 2021-08-15 Telephone [facility] 1.2.100.236 [id number] [id number] Univers 00:00:00 00:00:00 Tawny STEINERPEC 350.1.13.10 it[place] of [place] [phone] [address] [facility] 2021-07-28 2021-07-28 Telephone [facility] 1.2.528.428 [id number] 0160 Univers 00:00:00 00:00:00 Keny MULTISPEC 350.1.13.10 ity of [place] [phone] [address] [facility] 2021-07-12 2021-07-[address] [facility] [id number] Univers 15:20:00 16:01:50 JEZ blanca o f [facility] 2021-07-12 2021-07-12 Office [facility] 1.2.840.114 [id number] Univers 15:20:00 16:01:50 [facility] 350.1.13.10 [place] of [place].2.7.2.686 [place] [facility] [phone] Nh dical NAL [address] [facility] 2021-07-04 2021-07-[address] [facility] [id number] Univers 08:00:00 08:00:00 JUAN JOSE blanca [facility] 2021-06-22 2021-06-22 Office [facility] 1.2.840.114 [id number] Univers 09:30:00 09:45:00 Visit [facility] 350.1.13.10 it y of [place] 4.2.7.2.686 Elio as ANDREA?BLEA [phone] Nh dical EY [address] [place] MEDICAL OFFICE BUILDING 2021-06-22 2021-06-[address] [facility] [id number] Univers 09:30:00 09:30:00 JUAN JOSE blanca [facility] 2021-06-22 2021-06-[address] [facility] [id number] Univers 09:30:00 09:30:00 JUAN JOSE blanca [facility] 2021-06-16 2021-06-16 Telephone Pierce [facility] 1.2.258.343 [id number] Univers 00:00:00 00:00:00 [facility] 350.1.13.10 it y [facility] 4.2.7.2.686 Elio as ANDREA?BLEA [phone] [address] OFFICE [facility] 2021-06-13 2021-06-13 Office [facility] 1.2.840.114 [id number] Univers 09:00:00 09:30:00 Visit [facility] 350.1.13.10 it y of [place] 4.2.7.2.686 Elio as ANDREA?BLEA [phone] [address] OFFICE [facility] 2021-06-13 2021-06-13 Outpatient [facility] [id number] Univers 09:00:00 09:00:00 JUAN JOSE sabinemelissa [facility] 2021-06-13 2021-06-13 Outpatient [facility] [id number] Univers 09:00:00 09:00:00 [facility] 2021-06-13 2021-06-13 Telephone [facility] 1.2.626.588 [id number] Univers 00:00:00 00:00:00 Tawny STEINERPEC 350.1.13.10 [place] [phone] [address] [facility] 2021-06-13 2021-06-13 Orders Doctor WALKER 1.2.840.114 [id number] Univers 00:00:00 00:00:00 Only Unassigned, JOSÉ 350.1.13.10 ity of [place] [facility] 4.2.7.2.686 Elio as [phone] [address] 2021-06-06 2021-06-06 [facility] 1.2.745.661 [id number] Univers 00:00:00 00:00:00 Keny MULTISPEC 350.1.13.10 ity of [place] [phone] [facility] [address] [place] [facility]IC 2021-06-03 2021-06-03 Telephone [facility] 1.2.618.075 [id number] Univers 00:00:00 00:00:00 [facility] 350.1.13.10 it y of [place].2.7.2.[place] [phone] Nh dical [address] [place] 2021-06-02 2021-06-02 Telephone [facility] 1.2.638.137 [id number] Univers 00:00:00 00:00:00 Keny MULTISPEC 350.1.13.10 ity of [place] [phone] [address] [facility] 2021-05-31 2021-05-31 Refill [facility] 1.2.840.114 [id number] Univers 00:00:00 00:00:00 [facility] 350.1.13.10 it y [facility] 4.2.7.2.686 Elio as PROFESSIO [phone] Nh dical NAL [address] OFFICE BUILDING ONE 2021-05-27 2021-05-[address] [facility] [id number] Univers 09:10:58 23:59:00 REAGAN PAINTER ity of [facility] 2021-05-27 2021-05-27 [facility] 1.2.707.068 [id number] Univers 09:10:58 23:59:00 Encounter Reagan LOVE 350.1.13.10 [facility] 4.2.7.2.[place] [address] [phone] [facility] [address] 2021-05-27 2021-05-27 Crushing Machine Operator Jet Cai Lab Main [facility] 1.2.8 40.114 [id number] Univers 09:15:00 09:30:00 Visit Seema Collier 350.1.13.1 0 ity of [place] 4.2.7.2.686 [place] PROFESSIO [phone] Nh dical NAL [address] BUILDING 2021-05-27 2021-05-27 Orders Doctor AARON 1.2.840.114 [id number] Univers 00:00:00 00:00:00 Only Unassigned, JOSÉ 350.1.13.[address] ity of [place] [facility] 4.2.7.2.[phone] [facility] [address] 2021-05-16 2021-05-16 Telephone [facility] 1.2.370.183 [id number] Univers 00:00:00 00:00:00 [facility] 350.1.13.10 it y of [place] 4.2.7.2.686 Elio as ANDREA?BLEA [phone] [facility] [address] [place] MEDICAL OFFICE BUILDING 2021-05-10 2021-05-[address] [facility] [id number] Univers 11:20:00 15:50:58 REAGAN PAINTER [facility] 2021-05-10 2021-05-10 Office [facility] 1.2.840.114 [id number] Univers 11:20:00 15:50:58 Visit [facility] 350.1.13.10 ity of [place] 4.2.7.2.686 Elio as ANDREA?BLEA [phone] [facility] [address] [place] MEDICAL OFFICE [facility] 2021-05-10 2021-05-[address] [facility] [id number] Univers 11:20:00 11:20:00 REAGAN PAINTER [facility] 2021-05-10 2021-05-10 Transition OBINNA Andrews 1.2.840.114 [id number] Univers 00:00:00 00:00:00 of Care Radha B LOPEZ 350.1.13.10 it y of [place] 4.2.7.2.[address] [place] [phone] [facility] [address] 2021-05-03 2021-05-08 Inpatient X [facility]O [facility] [id number] Univers 20:41:00 15:40:00 SEEMA ity of [facility] 2021-05-03 2021-05-08 [facility] Hellen Phipps 1.2.840 .114 [id number] Univers 20:41:00 15:40:00 Encounter Seema Collier 350.1.13. [address] [facility] 4.2.7.2.[phone] [facility] [address] [place] 2021-05-03 2021-05-08 [facility] [id number] Univers 20:41:00 15:40:00 SEEMA blanca [facility] 2021-05-03 2021-05-08 In[facility] [id number] Univers 20:41:00 15:40:00 SEEMA blanca [facility] 2021-05-04 2021-05-04 Travel 1.2.840.1 1.2.672.841 [id number] Univers 00:00:00 00:00:00 13969.1.1 350.1.13.10 ity of 3.104.2.7 4.[place].3.698 [place] .3.270729 084.8 Medica l .8 [place] 2021-05-03 2021-05-03 Emergency X , [facility] ERT [id number] Univers 14:57:00 20:38:00 MAXI blanca [facility] 2021-05-03 2021-05-03 Emergency , 1.2.840.4 [id number] Univers 14:57:00 20:38:00 Maxi 56287.1.1 ity of 3.104.2.7 [place] .3.849581 Medica l .8 [place] 2021-05-03 2021-05-03 Travel 1.2.840.1 1.2.003.609 [id number] Univers 00:00:00 00:00:00 54935.1.1 350.1.13.10 ity of 3.104.2.7 4.2.7.3.698 [place] .3.138879 084.8 Medica l .8 [place] 2021-04-26 2021-04-26 [facility] 1.2.840.5 [id number] Univers 10:08:13 23:59:00 Encounter Juan Jose 01002.1.1 it y of 3.104.2.7 [place] .3.515447 Medica l .8 [place] 2021-04-26 2021-04-[address] [facility] [id number] Univers 10:15:00 10:15:00 JUAN JOSE ity of [facility] 2021-04-26 2021-04-26 Office Pierce, 1.2.840.6 [id number] Univers 09:45:00 10:08:35 Visit Juan Jose 11725.1.1 ity of 3.104.2.7 [place] .3.661108 Medica l .8 [place] 2021-04-26 2021-04-[address] [facility] [id number] Univers 09:45:00 10:08:35 JUAN JOSE ity of [facility] 2021-04-26 2021-04-26 [facility] 1.2.840.3 [id number] Univers 10:07:58 10:07:58 Encounter Juan Jose 43604.1.1 it y of 3.104.2.7 [place] .3.015931 Medica l .8 [place] 2021-04-26 2021-04-26 Refrenetta [facility] 1.2.840.114 [id number] Univers 00:00:00 00:00:00 Juan Jose [facility] 350.1.13.10 it y of [place] 4.2.7.2.686 Elio as PROFESSIO [phone] Nh dical NAL [address] [place] OFFICE BUILDING ONE 2021-04-26 2021-04-26 Travel 1.2.840.1 1.2.492.606 [id number] [id number] Univers 00:00:00 00:00:00 90340.1.1 350.1.13.10 ity of 3.104.2.7 4.2.7.3.698 [place] .3.368351 084.8 Medica l .8 [place] 2021-04-26 2021-04-26 Refrenetta Pelayo 1.2.840.9 [id number] Univers 00:00:00 00:00:00 Juan Jose 33862.1.1 ity of 3.104.2.7 [place] .3.253124 Medica l .8 [place] 2021-03-21 2021-03-21 Jarethrenetta Pelayo [facility] 1.2.840.114 [id number] Univers 00:00:00 00:00:00 Juan Jose HEALTH 350.1.13.10 it y of [place] 4.2.7.2.686 Elio as ANDREA?BLEA [phone] [facility] [address] [place] MEDICAL OFFICE BUILDING 2021-03-21 2021-03-21 Arron Pelayo, 1.2.840.7 [id number] Univers 00:00:00 00:00:00 Juan Jose 29565.1.1 ity of 3.104.2.7 [place] .3.642075 Medica l .8 [place] 2021-03-15 2021-03-15 Outpatient KARTHIK JUNIOR MDA Markus/Hep/Nu [id number] 13:00:00 15:56:00 t Will mederos 2021-03-14 2021-03-14 Outpatient KARTHIK JUNIOR MDA, MDA [id number] 09:28:32 09:28:32 Will mederos 2021-03-14 2021-03-14 Outpatient KACEY COUCH MDA MDA [id number] 09:04:20 09:15:03 VALERIANO mederos 2021-03-14 2021-03-14 Outpatient KACEY COUCH MDA MDA [id number] 08:38:20 08:38:20 VALERIANO mederos 2021-03-08 2021-03-08 Orders Doctor WALKER 1.2.840.114 [id number] Univers 00:00:00 00:00:00 Only Unassigned, JOSÉ 350.1.13.10 ity of [place] [facility] 4.2.7.2.[phone] [facility] [address] [place] 2021-03-08 2021-03-08 Orders Doctor 1.2.840.3 [id number] Univers 00:00:00 00:00:00 Only Unassigned, 34921.1.1 ity of [place] 3.104.2.7 [place] .3.352589 Medica l .8 [place] 2021-03-03 2021-03-03 Refill Pierce TNANA PAULA 1.2.840.114 [id number] Univers 00:00:00 00:00:00 Juan Jose HEALTH 350.1.13.10 it y of [place] 4.2.7.2.686 Elio as PROFESSIO [phone] Nh ewa STOCK [address] [place] OFFICE BUILDING ONE 2021-03-03 2021-03-03 Refrenetta Pelayo, 1.2.840.0 [id number] 611 Univers 00:00:00 00:00:00 Juan Jose 77867.1.1 ity of 3.104.2.7 [place] .3.180516 Medica l .8 [place] 2021-03-01 2021-03-01 Nurse Juan Jose Pelayo 1.2.840.1 [id number] Univers 08:00:00 09:30:01 Visit Nurse, Derek Sadler 20201.1.1 ity of 3.104.2.7 [place] .3.829002 Medica l .8 [place] 2021-03-01 2021-03-01 Nurse Nurse, Derek Sadler [facility] 1.2.840.114 [id number] Univers 07:51:02 08:11:02 Visit Juan Jose Pelayo 350.1.13.10 ity of [place] 4.2.7.2.686 Elio as Andrea?Blea [phone] Nh ewa kney 044 [facility] Office Building 2021-03-01 2021-03-[address] [facility] [id number] Univers 08:00:00 08:00:00 ity of [facility] 2021-03-01 2021-03-01 Travel 1.2.840.1 1.2.062.729 [id number] [id number] Univers 00:00:00 00:00:00 34649.1.1 350.1.13.10 ity of 3.104.2.7 4.2.7.3.698 [place] .3.301147 084.8 Medica l .8 [place] 2021-02-24 2021-02-24 Telephone Pierce TNANA PAULA 1.2.543.437 [id number] Univers 00:00:00 00:00:00 Juan Jose Health 350.1.13.10 it y of [place] 4.2.7.2.686 Elio as Andrea?Blea [phone] [facility] 353 [facility] Office [facility] 2021-02-24 2021-02-24 Telephone Pierce, 1.2.840.7 [id number] Univers 00:00:00 00:00:00 Juan Jose 61526.1.1 ity of 3.104.2.7 [place] .3.069831 Medica l .8 [place] 2021-02-23 2021-02-23 Outpatient EL MDA MDA [id number] 11:15:00 23:59:00 Willjessie mdeeros 2021-02-23 2021-02-23 Outpatient EL CERVANTESKARTHIK MDA MDA [id number] 08:50:16 10:58:36 Will mederos 2021-02-19 2021-02-19 Telephone [facility] 1.2.656.560 [id number] [id number] Univers 00:00:00 00:00:00 Juan Jose Health 350.1.13.10 it y of [place] 4.2.7.2.686 Elio as Andrea?Blea [id number] [facility] [address] [facility] 2021-02-19 2021-02-19 Telephone Pierce, 1.2.840.4 [id number] [id number] Univers 00:00:00 00:00:00 Juan Jose 17384.1.1 ity of 3.104.2.7 [place] .3.143760 Medica l .8 [place] 2021-02-16 2021-02-16 Telephone Pierce, [facility] 1.2.362.489 [id number] [id number] Univers 00:00:00 00:00:00 Juan Jose Health 350.1.13.10 it y of [place] 4.2.7.2.686 Elio as Andrea?Blea [phone] [facility] [address]44 [facility] 2021-02-16 2021-02-16 Telephone Pelayo, 1.2.840.6 [id number] [id number] Univers 00:00:00 00:00:00 Juan Jose 14172.1.1 ity of 3.104.2.7 [place] .3.604851 Medica l .8 [address] 2021-02-14 2021-02-14 [facility] 1.2.840.114 [id number] Univers 13:51:16 23:59:00 Encounter Joe wetzel [place] 350.1.13.10 ity of [place] 4.2.7.2.686 [place] [facility] [phone] [facility] [address] 2021-02-14 2021-02-14 [facility] 1.2.840.5 [id number] Univers 13:51:16 23:59:00 Encounter Joe wetzel 44224.1.1 ity of 3.104.2.7 [place] .3.798477 Medica l .8 [place] 2021-02-14 2021-02-14 Outpatient R [facility] [id number] [id number] Univers 00:00:00 00:00:00 JOE Wetzel o f [facility] 2021-02-14 2021-02-14 Orders Doctor AARON 1.2.840.114 [id number] Univers 00:00:00 00:00:00 Only Unassigned, JOSÉ 350.1.13.10 ity of [place] [facility] 4.2.7.2.[phone] [facility] [address] 2021-02-14 2021-02-14 Orders Doctor 1.2.840.6 [id number] Univers 00:00:00 00:00:00 Only Unassigned, 89745.1.1 ity of [place] 3.104.2.7 [place] .3.652835 Medica l .8 [address] 2021-02-08 2021-02-08 Crushing Machine Operator Joe Bear 1.2.840.0 [id number] Univers 11:45:00 12:00:00 Visit Pob, Adc Lab Main 88996.1.1 ity of 3.104.2.7 [place] .3.321354 Medica l .8 [address] 2021-02-08 2021-02-08 Crushing Machine Operator Ayala, Jet Lab Main [facility] 1.2.8 40.114 [id number] Univers 11:37:06 11:52:06 Visit Joe Bear 350.1.1 3.10 ity of [place] 4.2.7.2.686 [place] [facility] [phone] Nh dical nal [address] Building 2021-02-08 2021-02-[address] [facility] [id number] Univers 11:45:00 11:45:00 JOE Wetzel o f [facility] 2021-02-08 2021-02-08 Orders Doctor AARON 1.2.840.114 [id number] Univers 00:00:00 00:00:00 Only Unassigned, JOSÉ 350.1.13.10 ity of [place] [facility] 4.2.7.2.[phone] [facility] [address] [place] 2021-02-08 2021-02-08 Orders Doctor 1.2.840.0 [id number] Univers 00:00:00 00:00:00 Only Unassigned, 42596.1.1 ity of [place] 3.104.2.7 [place] .3.155940 Medica l .8 [place] 2020-12-29 2020-12-29 Emergency [facility] 1.2.840.114 [id number] Univers 10:27:00 12:49:00 Ricky Love 350.1.13.10 i ty of [place] 4.2.7.2.686 [place] [phone] [facility] [address] [place] 2020-12-28 2020-12-28 Telephone [facility] 1.2.321.870 [id number] [id number] Univers 00:00:00 00:00:00 [facility] 350.1.13.10 it y of [place] 4.2.7.2.686 Elio as Andrea?Blea [phone] Nh dical kney [address] [place] Medical Office Building 2020-12-23 2020-12-[address] [facility] [id number] Univers 07:30:00 07:30:00 ity of [facility] 2020-12-20 2020-12-20 Office [facility] [id number] Univers 09:13:03 09:42:47 Visit Josefa Love 350.1.13.10 i [place]7.2.[place] [phone] [address] 2020-12-20 2020-12-20 [facility] [id number] Univers 09:00:00 09:00:00 JOSFEA itmelissa [facility] 2020-12-20 2020-12-20 Orders Doctor AARON 1.2.840.114 [id number] Univers 00:00:00 00:00:00 Only Unassigned, JOSÉ 350.1.13.10 ity of [place] [facility] 4.2.7.2.686 Elio as [phone] [address] 2020-11-22 2020-11-22 [facility] 1.2.840.114 [id number] Univers 00:00:00 00:00:00 [facility] 350.1.13.10 it y of [place] 4.2.7.2.686 [place]io as Professio [phone] [address] One 2020-11-22 2020-11-22 Refill [facility] [id number] Univers 00:00:00 00:00:00 Josefa Kate 350.1.13.10 i ty [place].2.[place] [phone] [facility] [address] [facility] 2020-11-16 2020-11-16 [facility] 1.2.840.114 [id number] Univers 00:00:00 00:00:00 [facility] 350.1.13.10 it y of [place] 4.2.7.2.686 [place]io as Professio [phone] [address] One 2020-11-05 2020-11-05 [facility] 1.2.840.114 [id number] Univers 00:00:00 00:00:00 [facility] 350.1.13.10 it y of [place] 4.2.7.2.686 Elio as Professio [phone] [address] One 2020-11-04 2020-11-04 Refill [facility] 1.2.840.114 [id number] Univers 00:00:00 00:00:00 [facility] 350.1.13.10 i ty of [place] 4.2.7.2.686 [place] as Professio [phone] [address] One 2020-10-27 2020-10-27 Urgent Provider, [facility] 1.2.840.114 [id number] Univers 08:58:15 09:26:46 Care Julian Karma [facility] 350.1.13.10 ity of [place] 4.2.7.2.686 [place] as Professio [phone] [address] One 2020-10-27 2020-10-27 Outpatient [facility] [id number] Univers 09:00:00 09:00:00 KARMA blanca [facility] 2020-10-27 2020-10-27 [facility] 12.840.114 [id number] Univers 00:00:00 00:00:00 [facility] 350.1.13.10 it y of [place] 4.2.7.2.686 [place] as Professio [phone] [address] One 2020-10-18 2020-10-18 Outpatient KARTHIK JUNIOR [facility] MDA [id number] 08:38:04 23:59:00 Will mederos 2020-10-18 2020-10-18 Outpatient KACEY COUCH [facility] MDA [id number] 09:23:57 09:52:06 VALERIANO mederos 2020-10-18 2020-10-18 Outpatient KARTHIK JUNIOR [facility] MDA [id number] 07:40:19 08:36:33 Will mederos 2020-10-01 2020-10-01 Telephone Pierce [facility] 1.2.268.015 [id number] Univers 00:00:00 00:00:00 [facility] 350.1.13.10 it y of [place] 4.2.7.2.686 Elio as Professio [phone] [address] Office [facility] 2020-09-29 2020-09-[address] [facility] [id number] Univers 13:00:00 13:00:00 ity of [facility] 2020-09-29 2020-09-29 Nurse Nurse, [facility] Fam Pob I [facility] 1.2.8 40.114 [id number] Univers 09:06:46 09:26:46 Visit Juan Jose Pelayo [facility] 350.1.13.10 ity of [place] 4.2.7.2.686 Elio as Professio [phone] [address] Office [facility] 2020-09-29 2020-09-[address] [facility] [id number] Univers 09:00:00 09:00:00 ity [facility] 2020-09-20 2020-09-20 Crushing Machine Operator Lab, [facility] Fam Pob I [facility] 1.2. 840.114 [id number] Univers 14:44:17 14:47:01 Visit Juan Jose Pelayo 350.1.13.10 ity of [place] 4.2.7.2.686 Elio as Professio [phone] [facility] nal [address] [place] [address] Office [facility] 2020-09-20 2020-09-20 Office Pierce [facility] 1.2.840.114 [id number] Univers 13:59:29 14:14:29 Visit Juan Jose [facility] 350.1.13.10 it y of [place] 4.2.7.2.686 Elio as Professio [phone] Nh dicct nal [address] [place] [address] Office [facility] 2020-09-20 2020-09-20 Out[facility] [id number] Univers 14:00:00 14:00:00 [facility] 2020-09-17 2020-09-17 Outpatient KARTHIK JUNIOR MDA Markus/Hep/Nu [id number] 11:03:00 16:42:00 jasson mederos 2020-09-16 2020-09-16 Outpatient KACEY COUCH MDA MDA [id number] 07:14:45 07:14:45 VALERIANO mederos 2020-09-15 2020-09-15 Outpatient KACEY COUCH MDA MDA [id number] 09:01:54 09:11:28 VALERIANO mederos 2020-09-10 2020-09-10 Outpatient KARTHIK JUNIOR MDA MDA [id number] 08:30:00 23:59:00 Will mederos 2020-09-10 2020-09-10 Outpatient KACEY MURRY MDA MDA [id number] 07:30:00 08:29:00 SUMAYA mederos 2020-09-09 2020-09-09 Outpatient KACEY COUCH MDA MDA [id number] 10:00:00 10:00:00 VALERIANO mederos 2020-08-30 2020-08-30 Nurse Nurse, [facility] Fam b I [facility] 1.2.8 40.114 [id number] [facility] 07:53:38 08:05:48 Visit Juan Jose Pelayo [facility] 350.1.13.10 ity [facility] 4.2.7.2.686 Elio as Professio [phone] Nh dical [address] Office Building One 2020-08-30 2020-08-30 Nurse Nurse, [facility] 1.2.840.114 [id number] 07:53:38 08:05:48 [facility] 350.1.13.10 [place] 4.2.7.2.686 Professio [phone] [place] [address] Office Building One 2020-08-30 2020-08-[address] [facility] [id number] Univers 08:00:00 08:00:00 ity [facility] 2020-08-27 2020-08-27 Refill Pelayo, [facility] 1.2.840.114 [id number] Univers 00:00:00 00:00:00 [facility] 350.1.13.10 it y of [place] 4.2.7.2.686 Elio as Professio [phone] [facility] [address] [place] Office [facility] 2020-08-27 2020-08-27 [facility] 1.2.840.114 [id number] Univers 00:00:00 00:00:00 [facility] 350.1.13.10 it y of [place] 4.2.7.2.686 Elio as Professio [phone] [facility] [address] [place] Office [facility] 2020-08-27 2020-08-27 [facility] 1.2.903.384 [id number] Univers 00:00:00 00:00:00 Josefa Kate 350.1.13.10 i [place] [phone] [facility] [address] [facility] 2020-08-27 2020-08-27 [facility] 1.2.840.114 [id number] 00:00:00 00:00:00 [facility] 350.1.13.10 [place] 4.2.7.2.686 Professio [phone] [place] [address] Office [facility] 2020-08-27 2020-08-27 [facility] 1.2.840.114 [id number] 00:00:00 00:00:00 [facility] 350.1.13.10 [place] 4.2.7.2.686 Professio [phone] [place] [address] Office [facility] 2020-08-27 2020-08-27 [facility] 1.2.075.010 [id number] 00:00:00 00:00:00 Josefa Kate 350.1.13.10 [place] 4.2.7.2.686 Professio [phone] [address] 2020-08-20 2020-08-20 Outpatient KACEY ANTHONY MDA MDA [id number] 10:09:51 15:55:01 SHI mederos 2020-08-20 2020-08-20 Outpatient KARTHIK JUNIOR MDA [facility] [id number] 07:45:59 07:45:59 Will o n 2020-08-09 2020-08-09 Outpatient KARTHIK JUNIOR LUCIAN MDA [id number] 12:00:00 23:59:00 Will o n 2020-08-09 2020-08-09 Outpatient KARTHIK JUNIOR MDA MDA [id number] 10:20:16 12:10:04 Willjessie mederos 2020-08-09 2020-08-09 Orders Doctor AARON 1.2.840.114 [id number] Univers 00:00:00 00:00:00 Only Unassigned, JOSÉ 350.1.13.10 ity of [place] [facility] 4.2.7.2.686 Elio as [phone] [address] 2020-08-09 2020-08-09 Orders Doctor AARON 1.2.840.114 [id number] 00:00:00 00:00:00 Only Unassigned, JOSÉ 350.1.13.[address] [place] [facility] 4.2.7.2.686 [id number] 009 2020-07-22 2020-07-22 Telephone Pierce [facility] 1.2.780.001 [id number] Univers 00:00:00 00:00:00 [facility] 350.1.13.10 it y of [place] 4.2.7.2.686 Elio as Professio [phone] Nh dic[address] Office Building [facility] 2020-07-22 2020-07-22 Telephone Pierce [facility] 1.2.611.637 [id number] 00:00:00 00:00:00 [facility] 350.1.13.10 [place] 4.2.7.2.686 Professio [phone] nal 044 Office Building One 2020-07-06 2020-07-06 Patient EKTA Christian 1.2.840.114 [id number] 00:00:00 00:00:00 Outreach Valeriano [facility] 350.1.13.10 [facility] 4.2.7.2.686 PAVILLION [phone] 388 2020-07-06 2020-07-06 Patient Gino TNANA PAULA 1.2.840.114 [id number] Univers 00:00:00 00:00:00 Outreach Valeriano [facility] 350.1.13.10 i ty of [facility] 4.2.7.2.686 [place] [phone] Nh dic[address] 2020-07-05 2020-07-05 Telephone [facility] 1.2.840.114 [id number] 00:00:00 00:00:00 Josefa [place]ton 350.1.13.10 [place] 4.2.7.2.686 Professio [phone] [address] 2020-07-05 2020-07-05 Refill [facility] 1.2.616.681 [id number] 00:00:00 00:00:00 Josefa Love 350.1.13.10 [place] 4.2.7.2.686 Professio [phone] [address] 2020-07-05 2020-07-05 Telephone [facility] 1.2.840.114 [id number] Univers 00:00:00 00:00:00 Josefa [place]moreton 350.1.13.10 i ty [place] [phone] [address] 2020-07-05 2020-07-05 [facility] 1.2.366.719 [id number] Univers 00:00:00 00:00:00 Josefa Love 350.1.13.10 i ty [place] [phone] [address] 2020-07-02 2020-07-02 Outpatient KACEY POLLOCK MDA MDA [id number] 08:07:11 08:07:11 CLAUDIA mederos 2020-06-07 2020-06-07 Office [facility] 1.2.752.063 [id number] 09:13:36 10:09:34 Visit Josefa Love 350.1.13.10 [place] 4.2.7.2.686 Professio [phone] [address] 2020-06-07 2020-06-07 Office [facility] 1.2.288.827 [id number] Univers 09:13:36 10:09:34 Visit Josefa Kate 350.1.13.10 i ty of [place].2.7.2.[place] [phone] Nh dical nal [address] [facility] 2020-06-07 2020-06-[address] [facility] [id number] Univers 09:15:00 09:15:00 JOSEFA rianna [facility] 2020-05-18 2020-05-18 Crushing Machine Operator 2, Adc Lab [facility] 1.2.840.114 [id number] Univers 09:56:17 10:11:17 Visit Reagan Painter 350.1.13 .10 ity of [place].2.7.2.686 [place] [phone] Nh dical nal [address] [facility] 2020-05-18 2020-05-18 Office Inocencio [facility] 1.2.840.114 [id number] [facility] 08:00:48 09:51:48 Visit Reagan Love 350.1.13.10 ity of [place] 4.2.7.2.686 [place] [phone] Nh dical nal [address] [facility] 2020-05-18 2020-05-[address] [facility] [id number] Univers 08:40:00 08:40:00 REAGAN PAINTER [facility] 2020-05-18 2020-05-18 Orders Doctor WALKER 1Adina2.840.114 [id number] Univers 00:00:00 00:00:00 Only Unassigned, JOSÉ 350.1.13.10 ity of [place] [facility] 4.2.7.2.686 Elio as [phone] [address] 2020-05-03 2020-05-03 Orders Doctor AARON Verdugo2.840.114 [id number] Univers 00:00:00 00:00:00 Only Unassigned, JOSÉ 350.1.13.10 ity of [place] [facility] 4.2.7.2.[phone] [facility] [address] [place] 2020-04-26 2020-04-26 Office [facility] 1.2.840.114 [id number] Univers 09:54:33 10:40:18 Visit Juan Jose Plata 350.1.13.10 it y of [place] 4.2.7.2.686 [place] as Professio [phone] [address] Office Building One 2020-04-26 2020-04-26 Outpatient [facility] [id number] Univers 10:00:00 10:00:00 JUAN JOSE blanca [facility] 2020-04-23 2020-04-23 Telephone [facility] 1.2.215.026 [id number] Univers 00:00:00 00:00:00 Juan Jose Love 350.1.13.10 i ty of [place]2.[place].2.[place] [phone] [address] 2020-04-23 2020-04-23 Telephone [facility] 1.2.859.102 [id number] Univers 00:00:00 00:00:00 Juan Jose Love 350.1.13.10 i ty of [place] 4.2.7.2.[place] [phone] [address] 2020-04-21 2020-04-21 [facility] 1.2.840.114 [id number] Univers 14:00:00 23:59:00 Encounter Juan Jose Love 350.1.13.10 ity of [place].2.7.2.686 [place] [phone] [facility] [address] [place] 2020-04-21 2020-04-[address] [facility] [id number] Univers 00:00:00 00:00:00 JUAN JOSE blanca [facility] 2020-04-14 2020-04-14 Nurse Cbc, Medicare Wellness [facility] 1.2.840.114 [id number] Univers 14:32:20 15:37:30 Visit Juan Jose Pelayo 350.1.13.10 ity of [place] 4.2.7.2.686 [place]io as Professio [phone] Nh dical nal [address] [place] Office [facility] 2020-04-14 2020-04-[address] [facility] [id number] Univers 14:15:00 14:15:00 JUAN JOSE melissa [facility] 2020-04-14 2020-04-14 Office Pierce [facility] 1.2.840.114 [id number] Univers 13:57:29 14:12:29 Visit [facility] 350.1.13.10 it y of [place] 4.2.7.2.686 [place] as Professio [phone] Nh dical nal 044 [facility] One 2020-04-12 2020-04-12 Outpatient EL MDA MDA [id number] MD 09:01:14 09:01:14 Will mederos 2020-04-12 2020-04-12 Outpatient EL PRASHANTH, MDA MDA [id number] 07:39:56 07:39:56 LEO mederos 2020-04-12 2020-04-12 Outpatient EL PRASHANTH, MDA MDA [id number] 07:05:17 07:05:17 LEO mederos 2020-03-26 2020-03-26 Telephone [facility] 1.2.798.499 [id number] Univers 00:00:00 00:00:00 [facility] 350.1.13.10 it y of [place] 4.2.7.2.686 [place] Professio [phone] Nh dicyuni stock 044 [facility] 2020-03-09 2020-03-09 Telephone Pierce [facility] 1.2.571.767 [id number] Univers 00:00:00 00:00:00 [facility] 350.1.13.10 it y of [place] 4.2.7.2.686 [place] as Professio [phone] Nh dical nal 044 [facility] 2020-03-09 2020-03-09 Telephone Serene [facility] 1.2.840.114 [id number] Univers 00:00:00 00:00:00 Emile GLORIA 350.1.13.10 ity of C[place]2.[place].2.[place] C[place] AT [phone] Nh dical VICTORY [address] [place] [address] 2020-03-03 2020-03-03 Office [facility] 1.2.840.114 [id number] Univers 14:37:34 14:52:34 Visit Argelia Perez [facility] 350.1.13.10 it y of Surgical 4.2.7.2.686 Elio as Specialti [phone] Nh dical es [address] [facility] 2020-03-03 2020-03-03 Outpatient [facility] [id number] Univers 14:45:00 14:45:00 ARGELIA ity [facility] 2020-02-18 2020-02-18 [facility] Serene [facility] 1.2.840.114 [id number] Univers 14:58:00 23:59:00 Encounter Emile HARKINS 350.1.13.10 ity [place].[address] [place] [phone] [facility] [address] [place] 2020-02-18 2020-02-18 Outpatient R [facility] NUT [id number] Univers 00:00:00 00:00:00 EMILE blanca [facility] 2020-02-12 2020-02-12 Outpatient [facility] [id number] Univers 14:15:00 14:15:00 JUAN JOSE blanca [facility] 2020-02-11 2020-02-11 Crushing Machine Operator Jet Cai Lab Main [facility] 1.2.8 40.114 [id number] Univers 15:51:51 16:06:51 Visit Emile Cast 350.1.13.10 ity of [place] 4[place]2.7.2.686 [place] [facility] [phone] Nh dical nal [address] [facility] 2020-02-11 2020-02-11 [facility] 1.2.840.114 [id number] Univers 15:50:03 15:52:00 Encounter Emile Love 350.1.13.10 ity of [place]2.7.2.686 [place] [phone] [facility] [address] [place] 2020-02-11 2020-02-11 Outpatient [facility] [id number] Univers 00:00:00 00:00:00 [facility] 2020-02-11 2020-02-11 Orders Doctor AARON 1.2.840.114 [id number] Univers 00:00:00 00:00:00 Only Unassigned, JOSÉ 350.1.13.10 ity of [place] [facility] 4.2.7.2.686 Elio as [phone] [address] 2020-02-05 2020-02-05 Orders Doctor AARON 1.2.840.114 [id number] Univers 00:00:00 00:00:00 Only Unassigned, JOSÉ 350.1.13.10 ity of [place] [facility] 4.2.7.2.686 Elio as [phone] [address] 2020-02-04 2020-02-[address] [facility] [id number] Univers 13:15:00 13:15:00 JUAN JOSE [facility] 2020-02-04 2020-02-04 Telephone [facility] 1.2.840.114 [id number] Univers 00:00:00 00:00:00 Emile Manjarrez [facility] 350.1.13.10 it y of Surgical 4.2.7.2.686 [place] as Specialti [phone] Me dical es 198 [facility] 2020-02-02 2020-02-02 Office [facility] 1.2.222.311 [id number] Univers 15:57:45 16:40:02 Visit Emile Manjarrez [facility] 350.1.13.10 it y of Surgical 4.2.7.2.686 [place] as Specialti [phone] Nh dical es 198 [facility] 2020-02-02 2020-02-02 Outpatient [facility] [id number] Univers 16:00:00 16:00:00 EMILE [facility] 2020-01-26 2020-01-26 Patient Adonis [facility] 1.2.840.114 [id number] Univers 00:00:00 00:00:00 Outreach Darling Manjarrez Equiom 350.1.13.10 i ty of [place] 4.2.7.2.686 [place] as Professio [phone] Me dical nal [address] [place] Office Building One 2020-01-22 2020-01-22 Telephone [facility] 1.2.840.114 [id number] Univers 00:00:00 00:00:00 Emile Manjarrez Health 350.1.13.10 it y of Surgical 4.2.7.2.686 [place] as Specialti [phone] Nh dical es 198 [facility] 2020-01-08 2020-01-14 [facility] Génesis Poe [facility] 1.2.840.11 [id number] Univers 11:19:00 19:14:00 Encounter AntoniomeenakshiAsif Kate 350.1.13.10 ity of [place].2.7.2.686 [place] [phone] [facility] [address] [place] 2020-01-08 2020-01-08 [facility] 1.2.840.114 [id number] Univers 07:36:19 11:18:00 Encounter Emileroberth Love 350.1.13.10 ity of [place] 4.2.7.2.686 [place] [phone] [facility] [address] [place] 2020-01-08 2020-01-08 Crushing Machine Operator Ayala, Jet Lab Main [facility] 1.2.8 40.114 [id number] Univers 07:39:50 07:54:50 Visit Juan Jose Pelayo 350.1.13.10 ity of [place] 4.2.7.2.[place] [phone] Nh dical nal [address] [facility] 2020-01-08 2020-01-08 Outpatient [facility] [id number] Univers 07:45:00 07:45:00 JUAN JOSE rianna [facility] 2020-01-08 2020-01-08 Outpatient R [facility] [id number] Univers 00:00:00 00:00:00 EMILE rianna [facility] 2020-01-08 2020-01-08 Telephone [facility] 1.2.893.370 [id number] Univers 00:00:00 00:00:00 Juan Jose Plata 350.1.13.10 it y of [place] 4.2.7.2.686 Elio as Professio [phone] Nh dical nal [address] Office Building One 2020-01-07 2020-01-07 Orders Doctor AARON 1.2.840.114 [id number] Univers 00:00:00 00:00:00 Only Unassigned, JOSÉ 350.1.13.10 ity of [place] [facility] 4.2.7.2.[phone] [facility] [address] [place] 2019-12-30 2019-12-30 Outpatient [facility] [id number] Univers 10:15:00 10:15:00 JUAN JOSE blanca [facility] 2019-12-30 2019-12-30 Telemedici [facility] 1.2.840.114 [id number] Univers 07:53:13 08:08:13 ne Visit Juan Jose Love 350.1.13.10 ity of [place].2.7.2.[place] [phone] Nh dical nal 044 [facility] 2019-12-24 2019-12-24 Office [facility] 1.2.179.599 [id number] Univers 13:35:37 13:58:30 Visit [facility] 350.1.13.10 it y of Surgical 4.2.7.2.686 Elio as Specialti [phone] Nh dical es 198 [facility] 2019-12-24 2019-12-24 Outpatient [facility] [id number] Univers 13:45:00 13:45:00 EMILE blanca [facility] 2019-12-23 2019-12-23 Letter AARON Sandoval 1.2.840.114 [id number] Univers 00:00:00 00:00:00 (Out) Veda KUMAR 350.1.13.10 it y of HOSPITAL 4.2.7.2.[phone] [facility] [address] [place] 2019-12-23 2019-12-23 Letter [facility] 1.2.840.114 [id number] Univers 00:00:00 00:00:00 (Out) Juan Jose Love 350.1.13.10 i ty of [place] 4[place]2.7.2.[place] [phone] Nh dical nal 0[address] [facility] 2019-12-22 2019-12-22 Urgent Pob1, Acute Care Clinic [facility] 1. 2.840.114 [id number] Univers 10:20:34 10:40:34 Magda Gross 350.1.13.10 ity of [place] 4.2.7.2.686 Elio as Professio [phone] Nh dical nal [address] [place] Office [facility] 2019-12-22 2019-12-[address] [facility] [id number] Univers 10:40:00 10:40:00 ity of [facility] 2019-12-10 2019-12-[address] [facility] [id number] Univers 08:20:00 08:20:00 ity of [facility] 2019-11-04 2019-11-04 [facility] 1.2.840.114 [id number] Univers 08:30:00 23:59:00 Encounter Juan Jose oLve 350.1.13.10 ity of [place] 4.2.7.2.686 [place] [phone] [facility] [address] [place] 2019-11-04 2019-11-04 Office [facility] 1.2.840.114 [id number] Univers 07:53:56 08:08:56 Visit Juan Jose Love 350.1.13.10 i ty of [place] 4.2.7.2.686 [place] [phone] Nh dical nal 0[address] [facility] 2019-11-04 2019-11-04 Outpatient R [facility] [id number] Univers 08:00:00 08:00:00 JUAN JOSE blanca [facility] 2019-10-15 2019-10-15 Outpatient R [facility] [id number] Univers 09:30:00 09:30:00 JUAN JOSE blanca [facility] 2019-10-14 2019-10-14 Crushing Machine Operator 2, Adc Lab [facility] 1.2.840.114 [id number] Univers 08:38:15 08:53:15 Visit Juan Jose Pelayo 350.1.13.10 ity of [place] 4.2.7.2.[place] [phone] Nh dical nal [address] [facility] 2019-10-14 2019-10-14 Outpatient R [facility] [id number] Univers 08:00:00 08:00:00 JUAN JOSE blanca [facility] 2019-10-14 2019-10-14 Orders Doctor AARON 1.2.840.114 [id number] Univers 00:00:00 00:00:00 Only Unassigned, JOSÉ 350.1.13.[address] [place] [facility] 4.2.7.2.686 Elio as [phone] [address] 2019-09-30 2019-09-30 Refrenetta [facility] 1.2.840.114 [id number] Univers 00:00:00 00:00:00 Juan Jose Health 350.1.13.10 it y of [place] 4.2.7.2.686 Elio as Professio [phone] [address] One 2019-09-27 2019-09-27 Arron [facility] 1.2.840.114 [id number] Univers 00:00:00 00:00:00 Juan Jose Health 350.1.13.10 it y of [place] 4.2.7.2.686 Elio as Professio [phone] [facility] nal [address] [place] [address] One 2019-06-07 2019-06-07 Arron [facility] 1.2.840.114 [id number] Univers 00:00:00 00:00:00 Juan Jose Health 350.1.13.10 it y of [place] 4.2.7.2.686 Elio as Professio [phone] [facility] nal [address] [place] [address] Office [facility] 2019-01-22 2019-01-22 Arron [facility] 1.2.840.114 [id number] Univers 00:00:00 00:00:00 Juan Jose Health 350.1.13.10 it y of [place] 4.2.7.2.686 Elio as Professio [phone] [facility] nal [address] [place] [address] Office [facility] 2018-12-26 2018-12-26 Arron [facility] 1.2.840.114 [id number] Univers 00:00:00 00:00:00 Juan Jose Health 350.1.13.10 it y luis [place] 4.2.7.2.686 Elio as [place] [phone] Nh dical nal [address] Office Building One Results Test Description Test Time Test Comments Results Result Comments Source POCT URINALYSIS W SPECIFIC GRAVITY 2022-09-26 15:39:00 Test Item Value Reference Range Interpretation Comme nts POCT U SP GRAV (test code = 3255) 1.020 mg/dl 1.005-1.025 POCT PH U (test code = 3254) 5 mg/dl 5-8 POCT U LEUK EST (test code = 3263) + Negative - Negative POCT U NIT (test code = 3262) neg Negative - Negative POCT U PROT (test code = 3259) trace Negative - Negative POCT U GLU (test code = 3256) norm Negative - Negative POCT U KETONE (test code = 3258) neg Negative - Negative POCT U UROBILI (test code = 3260) norm 0.2-1 POCT U BILI (test code = 3261) neg Negative - Negative POCT U BLD (test code = 3257) 50 Negative - Negative POCT U COLOR (test code = 3266) dark POCT U APPEAR (test code = 3267) cloudy Lab Interpretation (test code = 68022-9) Abnormal [facility]
--- NOTE | 2023-01-05 21:31 | RAD REPORT ---
EXAM DESCRIPTION: CT - Head C Spine Cap Wo Con - 01/05/2023 9:19 pm CLINICAL HISTORY: Trauma, head and neck injury. Chest, abdomen and pelvis pain. TRAUMA COMPARISON: <Comparisons> TECHNIQUE: CT head without contrast. CT cervical spine without contrast with coronal and sagittal reformatted images. CT chest, abdomen and pelvis without contrast with coronal and sagittal reformatted images of the spi ne. All CT scans are performed using dose optimization technique as appropriate and may include automated exposure control or mA/KV adjustment according to patient size. FINDINGS: CT HEAD WITHOUT CONTRAST: No intracranial hemorrhage, hydrocephalus or extra-axial fluid collection. Mild generalized brain atr ophy is present with mild periventricular and deep white matter chronic microvascular ischemic change s. No areas of brain edema or midline shift. The paranasal sinuses and mastoids are clear. The calvarium is intact. CT CERVICAL SPINE WITHOUT CONTRAST: No fracture or subluxation. Mild lower cervical degenerative spondylosis. The prevertebral soft tissu es are normal in thickness.Moderate atherosclerosis involves both carotid bulbs, greater on the left. CT CHEST, ABDOMEN, PELVIS WITHOUT CONTRAST: NOTE: Lack of contrast is a significant limitation in the assessment of trauma related findings. Spec ifically, solid organ, vascular and bowel evaluation is significantly limited. The lungs are mildly emphysematous but clear.No pneumothorax or pericardial/pleural fluid. No evidence of intra-abdominal visceral injury, free fluid or free air is seen within the above detai led limitations. Moderate liver cirrhosis. Moderate splenomegaly. Cholelithiasis. No concerning pelvic findings. Atherosclerosis of the abdominal aorta. No fractures. IMPRESSION: Negative for acute traumatic findings within the above detailed limitations.
--- NOTE | 2023-01-05 21:32 | RAD REPORT ---
EXAM DESCRIPTION: CT - CTFB CLINICAL HISTORY: TRAUMA Trauma, facial pain COMPARISON: No comparisons TECHNIQUE: Axial 2 mm thick images of the face were obtained with sagittal and coronal reconstructio n images. All CT scans are performed using dose optimization technique as appropriate and may include automated exposure control or mA/KV adjustment according to patient size. FINDINGS: No acute facial bone fracture is seen.The mandible is intact. The globes and orbital contents are grossly unremarkable.The paranasal sinuses and mastoids are clear . Moderate bilateral carotid atherosclerosis. IMPRESSION: Negative for facial bone fracture.
--- NOTE | 2023-01-05 21:36 | ER ---
Nurse's Notes [facility] Name: Swapna Johnson Age: 72 yrs Sex: Female : 1950 Arrival Date: 01/05/2023 Time: 19:22 Bed 13 Private MD: Diagnosis: Fall (on)(from) sidewalk curb;Unspecified injury of head, initial encounter;Peripheral vascular disease, unspecified;Other cholelithiasis without obstruction Presentation: 01/05 19:38 Chief complaint: Patient states: right side chest pain of 8 with SOB,onset this AM. pf1 Patient stated she fell on Sunday while walking on the road and hit face onto the road. Patient has abrasion and contusion to right side forehead, contusion to nose and abrasion to left great toe. 19:38 Coronavirus screen: Vaccine status: Patient reports receiving the 1st dose of the Covid pf1 vaccine. Client denies travel out of the [place] in the last 14 days. At this time, the client does not indicate any symptoms associated with coronavirus-19. Ebola Screen: Patient negative for fever greater than or equal to 101.5 degrees Fahrenheit, and additional compatible Ebola Virus Disease symptoms. Initial Sepsis Screen: Does the patient meet any 2 criteria? No. Patient's initial sepsis screen is negative. Does the patient have a suspected source of infection? No. Patient's initial sepsis screen is negative. Risk Assessment: Do you want to hurt yourself or someone else? Patient reports no desire to harm self or others. 19:38 Method Of Arrival: Ambulatory pf1 19:38 Acuity: RAFAL 2 pf1 22:14 Onset of symptoms was January 05, 2023. ha1 Triage Assessment: 21:50 General: Appears uncomfortable, Behavior is calm, cooperative. Pain: Complains of pain ha1 in right lateral posterior chest Pain does not radiate. Pain currently is 7 out of 10 on a pain scale. Quality of pain is described as pressure. Neuro: Level of Consciousness is awake, alert, obeys commands, Oriented to person, place, time, situation. Cardiovascular: Heart tones S1 S2 present Patient's skin is warm and dry. Respiratory: Airway is patent Respiratory effort is even, unlabored, Respiratory pattern is regular, symmetrical. GI: Abdomen is flat, non-distended, Bowel sounds present X 4 quads. Reports upper abdominal pain. Musculoskeletal: Circulation, motion, and sensation intact. Historical: - Allergies: 20:32 PENICILLINS; pf1 - PMHx: 20:32 breast cancer- currently in remission; Cirrhosis; Hepatitis; Hypertension; Dementia; pf1 gastric ulcer; - PSHx: 20:32 right side breast partial mastectomy; Tonsillectomy; pf1 - Immunization history:: Adult Immunizations up to date, Client reports receiving the Phillip \T\ Phillip single-dose vaccine. Last tetanus immunization: < 10 years ago Flu vaccine is up to date. - Social history:: Smoking status: Patient denies any tobacco usage or history of. Patient/guardian denies using alcohol, the patient reports quitting approximately [address], [address] drugs, the patient reports quitting approximately 20 years ago. Screenin:10 Abuse screen: Denies threats or abuse. Denies injuries from another. Nutritional ha1 screening: No deficits noted. Tuberculosis screening: No symptoms or risk factors identified. 22:16 [facility] ED Fall Risk Assessment (Adult) History of falling in the last 3 months, ha1 including since admission Yes- single mechanical fall (1 pt) Confusion or Disorientation No (0 pts) Intoxicated or Sedated No (0 pts) Impaired Gait Yes (1 pt) Mobility Assist Device Used Yes (1 pt) Altered Elimination No (0 pt) Score/Fall Risk Level 3 or more points = High Risk Oriented to surroundings, Maintained a safe environment, Educated pt \T\ family on fall prevention, incl call for assistance when getting out of bed, Hourly rounding (assess needs \T\ fall precautionary measures) done. Assessment: 21:50 Reassessment: see triage assessment. ha1 22:13 Reassessment: Patient and/or family updated on plan of care and expected duration. Pain ha1 level reassessed. Patient is alert, oriented x 3, equal unlabored respirations, skin warm/dry/pink. Vital Signs: 19:38 BP 133 / 74; Pulse 63; Resp 15; Temp 97.9; Pulse Ox 100% on R/A; Weight 58.97 kg; pf1 Height 5 ft. 2 in. ; Pain 8/10; 20:50 BP 138 / 74; Pulse 64; Resp 17 S; Pulse Ox 98% on R/A; ha1 21:50 BP 151 / 83; Pulse 65; Resp 16 S; Pulse Ox 98% on R/A; ha1 19:38 Body Mass Index 23.78 (58.97 kg, 157.48 cm) pf1 19:38 Pain Scale: Adult pf1 ED Course: 19:26 Patient arrived in ED. mr 19:40 ValentinaGwendolyn FNP-C [facility]. snw 19:40 Angel Jackson MD is Attending Physician. snw 19:50 Patient has correct armband on for positive identification. Placed in gown. Bed in low ha1 position. Call light in reach. Side rails up X 1. 20:32 Triage completed. pf1 21:21 CT Traumagram (Head C Spine CAP wo con) In Process Unspecified. EDMS 21:22 CT Facial Bones W/O Con In Process Unspecified. EDMS 21:40 Kaelyn Foy, MYLENE is Primary Nurse. ha1 22:13 Arm band placed on right wrist. ha1 22:13 No provider procedures requiring assistance completed. Patient did not have IV access ha1 during this emergency room visit. 22:14 Provided Education on: follow up . ha1 Administered Medications: 20:52 Drug: Boostrix Tdap IM 0.5 ml Route: IM; Site: right deltoid; ha1 22:10 Follow up: Response: No adverse reaction ha1 21:40 CANCELLED (Inappropriate at this time): traMADol PO 50 mg PO once snw 21:50 Drug: Dicyclomine PO 20 mg Route: PO; ha1 22:09 Follow up: Response: No adverse reaction ha1 Medication: 22:14 VIS not applicable for this client. ha1 Outcome: 21:36 Discharge ordered by . snw 22:13 Discharged to home via wheelchair. ha1 22:13 Condition: stable 22:13 Discharge instructions given to patient, family, Instructed on discharge instructions, follow up and referral plans. medication usage, Demonstrated understanding of instructions, follow-up care, medications, Prescriptions given X 1. 22:16 Patient left the ED. ha1 Signatures: Dispatcher [employer] EDMS Gwendolyn Montgomery FNP-C HOME CARE RN-Csnw Shelby Perales mr Kaelyn Foy RN RN ha1 Jeanette Ernst RN RN pf1
--- NOTE | 2023-01-05 21:36 | EDPHYS ---
Physician Documentation [facility] Name: Swapna Johnson Age: 72 yrs Sex: Female : 1950 Arrival Date: 01/05/2023 Time: 19:22 Bed 13 Private MD: ED Physician Angel Jackson HPI: 01/05 20:25 This 72 yrs old Female presents to ER via Unassigned with complaints of Abdominal Pain, snw Back Pain. 20:26 Details of fall: The patient fell from an upright position, while walking. Onset: The snw symptoms/episode began/occurred suddenly, 3 day(s) ago, and became persistent. Associated injuries: The patient sustained injury to the head, injury to the chest, pain with breathing, tenderness. Severity of symptoms: At their worst the symptoms were mild, moderate. The patient has not experienced similar symptoms in the past. It is unknown whether or not the patient has recently seen a physician, sees Dr. Pelayo and Dr. Paul. hx of Dementia, cirrhosis, depression, HTN. Historical: - Allergies: 20:32 PENICILLINS; pf1 - PMHx: 20:32 breast cancer- currently in remission; Cirrhosis; Hepatitis; Hypertension; Dementia; pf1 gastric ulcer; - PSHx: 20:32 right side breast partial mastectomy; Tonsillectomy; pf1 - Immunization history:: Adult Immunizations up to date, Client reports receiving the Phillip \T\ Phillip single-dose vaccine. Last tetanus immunization: < 10 years ago Flu vaccine is up to date. - Social history:: Smoking status: Patient denies any tobacco usage or history of. Patient/guardian denies using alcohol, the patient reports quitting approximately 10 years ago, [address] drugs, the patient reports quitting approximately 20 years ago. ROS: 20:23 Eyes: Negative for injury, pain, redness, and discharge, ENT: Negative for injury, snw pain, and discharge, Neck: Negative for injury, pain, and swelling, Cardiovascular: Positive for chest pain, negative for palpitations and edema, Respiratory: Negative for shortness of breath, cough, wheezing, and pleuritic chest pain, Abdomen/GI: Negative for abdominal pain, nausea, vomiting, diarrhea, and constipation, Back: Negative for injury and pain, : Negative for injury, bleeding, discharge, and swelling, MS/Extremity: Negative for injury and deformity. 20:23 Constitutional: Positive for body aches. 20:23 Skin: Positive for ecchymosis, of the medial canthus of right eye and right supraorbital ridge. 20:23 Neuro: Positive for hx of dementia. Exam: 19:49 Constitutional: This is a well developed, well nourished patient who is awake, alert, snw and in no acute distress. ENT: Nares patent. No nasal discharge, no septal abnormalities noted. Tympanic membranes are normal and external auditory canals are clear. Oropharynx with no redness, swelling, or masses, exudates, or evidence of obstruction, uvula midline. Mucous membranes moist. Neck: Trachea midline, no thyromegaly or masses palpated, and no cervical lymphadenopathy. Supple, full range of motion without nuchal rigidity, or vertebral point tenderness. No Meningismus. Cardiovascular: Regular rate and rhythm with a normal S1 and S2. No gallops, murmurs, or rubs. Normal PMI, no JVD. No pulse deficits. Respiratory: Lungs have equal breath sounds bilaterally, clear to auscultation and percussion. No rales, rhonchi or wheezes noted. No increased work of breathing, no retractions or nasal flaring. Abdomen/GI: Soft, non-tender, with normal bowel sounds. No distension or tympany. No guarding or rebound. No evidence of tenderness throughout. Back: No spinal tenderness. No costovertebral tenderness. Full range of motion. Skin: Warm, dry with normal turgor. Normal color with no rashes, no lesions, and no evidence of cellulitis. MS/ Extremity: Pulses equal, no cyanosis. Neurovascular intact. Full, normal range of motion. Neuro: Awake and alert, GCS 15, oriented to person, place, time, and situation. Cranial nerves II-XII grossly intact. Motor strength 5/5 in all extremities. Sensory grossly intact. Cerebellar exam normal. Normal gait. Psych: Awake, alert, with orientation to person, place and time. Behavior, mood, and affect are within normal limits. 19:49 Eyes: Periorbital structures: ecchymosis, that is moderate, on the right supraorbital ridge and medial canthus of right eye, Extraocular movements: no acute changes, Conjunctiva: normal. 19:49 Chest/axilla: Inspection: normal, Palpation: tenderness, that is moderate, of the anterior aspect of right upper chest and right lateral posterior chest, that totally reproduces the patient's complaints, Breasts: are normal. Vital Signs: 19:38 BP 133 / 74; Pulse 63; Resp 15; Temp 97.9; Pulse Ox 100% on R/A; Weight 58.97 kg; pf1 Height 5 ft. 2 in. ; Pain 8/10; 20:50 BP 138 / 74; Pulse 64; Resp 17 S; Pulse Ox 98% on R/A; ha1 21:50 BP 151 / 83; Pulse 65; Resp 16 S; Pulse Ox 98% on R/A; ha1 19:38 Body Mass Index 23.78 (58.97 kg, 157.48 cm) pf1 19:38 Pain Scale: Adult pf1 MDM: 19:47 Patient medically screened. snw 21:38 Differential diagnosis: closed head injury, cholelithiasis, ICH, rib fracture. Data snw reviewed: vital signs, nurses notes, radiologic studies. I considered the following discharge prescriptions or medication management in the emergency department Medications were administered in the Emergency Department. See MAR. Historians other than the Patient: Family Member: MIGUEL. Care significantly affected by the following chronic conditions:. Counseling: I had a detailed discussion with the patient and/or guardian regarding the historical points, exam findings, and any diagnostic results supporting the discharge/admit diagnosis, radiology results, the need for outpatient follow up, for definitive care, to return to the emergency department if symptoms worsen or persist or if there are any questions or concerns that arise at home. Special discussion: Based on the patient's history, exam, and Dx evaluation, there is no indication for emergent intervention or inpatient Tx. It is understood by the patient/guardian that if the Sx's persist or worsen they need to return immediately for re-evaluation. Based on the patient's Hx, exam, and Dx evaluation, there is no indication for emergent surgery or inpatient Tx. It is understood by the patient/guardian that if the Sx's persist or worsen they need to return immediately for re-evaluation. Based on the history and exam findings, there is no indication for further emergent testing or inpatient evaluation. I discussed with the patient/guardian the need to see the primary care provider for further evaluation of the symptoms. 01/05 19:58 Order name: CT Traumagram (Head C Spine CAP wo con); Complete Time: 21:33 snw 01/05 19:58 Order name: CT Facial Bones W/O Con; Complete Time: 21:33 snw EC:49 Rate is 62 beats/min. Rhythm is regular. QRS [place] is Normal. MA interval is normal. QRS snw interval is normal. QT interval is normal. Clinical impression: NSR w/ Non-specific ST/T Changes. Administered Medications: 20:52 Drug: Boostrix Tdap IM 0.5 ml Route: IM; Site: right deltoid; ha1 22:10 Follow up: Response: No adverse reaction ha1 21:40 CANCELLED (Inappropriate at this time): traMADol PO 50 mg PO once snw 21:50 Drug: Dicyclomine PO 20 mg Route: PO; ha1 22:09 Follow up: Response: No adverse reaction ha1 Disposition Summary: 01/05/23 21:36 Discharge Ordered Location: Home snw Condition: Stable snw Diagnosis - Fall (on)(from) sidewalk curb snw - Unspecified injury of head, initial encounter snw - Peripheral vascular disease, unspecified snw - Other cholelithiasis without obstruction snw Followup: snw - With: Emergency Department - When: As needed - Reason: Worsening of condition Followup: snw - With: Private Physician - When: 1 - 2 days - Reason: Recheck today's complaints, Continuance of care, Re-evaluation by your physician Discharge Instructions: - Discharge Summary Sheet snw - Head Injury, Adult snw - Cholelithiasis, [id number] snw - Peripheral Vascular Disease, [id number] snw - Aspirin and Your Heart snw - Gallbladder Eating Plan snw Forms: - Medication Reconciliation Form snw - Thank You Letter snw - Antibiotic Education snw - Prescription Opioid Use snw - Patient Portal Instructions snw - Leadership Thank You Letter snw Prescriptions: - dicyclomine 20 mg Oral Tablet - take 1 tablet by ORAL route 4 times per day; 21 tablet; Refills: 0, Product snw Selection Permitted Addendum: 01/08/2023 07:02 Co-signature as Attending Physician, Angel Jackson MD I reviewed the patient's care r n provided by the Advanced Practice Provider and agree with the diagnosis and treatment plan. Signatures: Dispatcher [employer] EDGwendolyn Sauer, PATIENTS TRANSPORTER-C PATIENTS TRANSPORTER-Csnw Angel Jackson MD MD rn Kaelyn Foy RN RN ha1 Jeanette Ernst RN RN pf1 Corrections: (The following items were deleted from the chart) 01/05 21:40 21:40 traMADol PO 50 mg PO once ordered. snw snw
[2023-01-05] MEDS ORDERED: DICYCLOMINE HCL 10 MG CAP ONE (22:01)
[2023-01-05] MEDS ORDERED: TDAP (DIPHTH,PERTUSS(ACELL),TET VAC) 0.5 ML VIAL IMVAC ONE (22:01)
[2023-01-05 22:31] VITALS: TEMP 97.9
[2023-01-05 22:32] VITALS: O2SAT 98
[2023-01-05 22:33] VITALS: BP 151/83
--- NOTE | 2023-01-09 16:59 | EKG ---
Test Date: 2023-01-05 Test Time: 19:48:21 Principal Engineer: CHERELLE MEASUREMENT RESULTS: Intervals: Rate: 62 ID: [id number] QRSD: 88 QT: 434 QTc: 440 [place]: P: 50 ID: [id number] QRS: 59 T: 48 INTERPRETIVE STATEMENTS: Normal sinus rhythm Normal ECG Compared to ECG 09/18/2020 10:01:49 No significant changes Electronically Signed On 01-09-23 16:48:38 CDT by Ernst Gates
== END 2023-01-05 22:16 | disposition home or self-care (01) ==
LOC: ER 19:22
DX: S09.90XA Unspecified injury of head, initial encounter (principal); I73.9 Peripheral vascular disease, unspecified; K80.80 Other cholelithiasis without obstruction; W10.1XXA Fall (on)(from) sidewalk curb, initial encounter; I10 Essential (primary) hypertension; F03.90 Unspecified dementia, unspecified severity, without behavioral disturbance, psychotic disturbance, mood disturbance, and anxiety
CPT/HCPCS: 70450; 70486; 71250; 72125; 76377; 93005; 96372; 99284

== ENCOUNTER 2024-12-25 10:54 | Emergency (ER) | payer OTHER, MEDICARE ==
--- NOTE | 2024-12-25 12:10 | RAD REPORT ---
Procedure: Chest Single View HISTORY: Cough COMPARISON: 2020 FINDINGS: Reticular nodular pattern mildly prominent left lung base. The remainder of the lungs appear clear. Heart is normal size No significant pleural effusion noted. The heart is normal size. IMPRESSION: Mild prominence of the reticular nodular pattern left lung base. This may simply represent confluence of pulmonary vessels. Mild atypical infection can also have this appearance.
--- NOTE | 2024-12-25 12:12 | RAD REPORT ---
EXAM: CT brain without contrast HISTORY: Confusion COMPARISON: 2022 TECHNIQUE: Multiple contiguous axial images were obtained and a CT of the brain without contrast.. Sagittal and coronal reconstruction performed. Automated exposure control, adjustment of the mA and/or kV according to patient size, and/or iterative reconstruction. Unless otherwise specified, incidental f indings do not require dedicated imaging follow-up FINDINGS: An intracranial bleed is not seen Ventricles are normal caliber No extra-axial fluid collection noted No significant hypodensity within the brain. Mild cerebral atrophy No fluid within the visualized sinuses or mastoids noted. IMPRESSION: No acute intracranial abnormality noted. If the patient continues to have symptoms to suggest an acute intracranial abnormality then MRI of th e brain would be recommended.
--- NOTE | 2024-12-25 12:19 | RAD REPORT ---
EXAMINATION: US bilateral LOWER EXTREMITY VENOUS DOPPLER CLINICAL INDICATION: Leg swelling TECHNIQUE: Sonographic evaluation of the veins of the lower extremity bilaterally formed.Grayscale, c olor and spectral analysis performed on all vessels COMPARISON: No prior exam. FINDINGS: The common femoral, superficial femoral, greater saphenous, popliteal and posterior tibial veins bila terally are compressible and demonstrate augmentation. Doppler demonstrates good flow. IMPRESSION: No evidence of deep venous thrombosis involving either lower extremity
[2024-12-25 13:44] LABS: Absolute Lymphocytes (CBC) 0.4 K/uL (0.7-4.9); Hematocrit 32.0 % (36.0-45.0); Hemoglobin 10.8 g/dL (12.0-15.0); MCH 32.7 pg (27.0-35.0); MCHC 33.7 g/dL (32.0-36.0); MCV 96.9 fL (80-100); MPV 7.8 fL (7.6-11.3); Nucleated RBC Absolute Count 0.0 (0-0); Nucleated Red Blood Cells % 0.0 % (0-0); RBC Red Blood Cell Count 3.30 M/uL (3.86-4.86); White Blood Count 5.50 thou/uL (4.3-10.9)
[2024-12-25 13:52] LABS: PT Prothrombin Time 14.6 SECONDS (10-13.0); Protime INR 1.3
[2024-12-25 14:18] LABS: ALT/SGPT 44.0 U/L (13-56); AST/SGOT 129.0 U/L (15-37); Albumin 3.1 g/dL (3.4-5.0); Albumin/Globulin Ratio 0.9 (1.1-1.8); Alkaline Phosphatase 109.0 U/L (45-117); Anion Gap 10.1 mEq/L (5.0-15.0); BUN Blood Urea Nitrogen 21.0 mg/dL (7-18); Bilirubin Indirect, Calculated 5.0 mg/dL (0.2-0.8); Globulin 3.5 g/dL (2.3-3.5); Glucose Level 69.0 mg/dL (74-106); Lipase 52.0 U/L (13-75); Magnesium 2.0 mg/dL (1.6-2.4); NT PRO-BNP 269.0 pg/mL (<450); Potassium 3.1 mEq/L (3.5-5.1); Troponin High Sensitivity 33.7 pg/mL (<58.9)
[2024-12-25] MEDS ORDERED: NA CHLORIDE 0.9% 500 ML ONE (14:43)
[2024-12-25] MEDS ORDERED: FAMOTIDINE 20 MG/2 ML VIAL IV ONE (14:43)
[2024-12-25 14:46] LABS: Blood Morphology Comment NOTED (NOT SEEN); Ovalocytes SLIGHT; Stomatocytes 1+; White Blood Cell Scan OK (OK)
[2024-12-25] MEDS ORDERED: POTASSIUM 25 MEQ EFFERV TAB ONE (15:14)
--- NOTE | 2024-12-25 15:15 | ER ---
Nurse's Notes [facility] Name: Swapna Johnson Age: 74 yrs Sex: Female : 1950 Arrival Date: 12/25/2024 Time: 10:54 Bed 18 Private MD: Diagnosis: Alcoholic cirrhosis of liver;Alcoholic cirrhosis of liver without ascites;Hypokalemia;Hypoglycemia, unspecified;Edema, unspecified Presentation: 12/25 11:07 Chief complaint: Patient's son or daughter states: Cognitive decline over some time. ss Daughter noticed this morning swelling to bilateral lower extremities with increase in SOB. Coronavirus screen: Client denies travel out of the [place] in the last 14 days. Ebola Screen: Patient denies exposure to infectious person. Patient denies travel to an Ebola-affected area in the 21 days before illness onset. Initial Sepsis Screen: Does the patient meet any 2 criteria? No. Patient's initial sepsis screen is negative. Does the patient have a suspected source of infection? No. Patient's initial sepsis screen is negative. Risk Assessment: Do you want to hurt yourself or someone else? Patient reports no desire to harm self or others. Onset of symptoms was December 25, 2024. 11:07 Method Of Arrival: Ambulatory ss 11:07 Acuity: RAFAL 3 Historical: - Allergies: 11:08 PENICILLINS; ss - PMHx: 11:08 breast cancer- currently in remission; Cirrhosis; Dementia; Hypertension; Hepatitis; ss gastric ulcer; - PSHx: 11:08 right side breast partial mastectomy; Tonsillectomy; ss - Immunization history:: Adult Immunizations unknown. - Infectious Disease History:: Denies. - Social history:: Smoking status: Patient denies any tobacco usage or history of. Screenin:[facility] ED Fall Risk Assessment (Adult) History of falling in the last 3 months, ar8 including since admission No falls in past 3 months (0 pts) Confusion or Disorientation No (0 pts) Intoxicated or Sedated No (0 pts) Impaired Gait No (0 pts) Mobility Assist Device Used Yes (1 pt) Altered Elimination No (0 pt) Score/Fall Risk Level 0 - 2 = Low Risk Oriented to surroundings, Maintained a safe environment. Abuse screen: Denies threats or abuse. Nutritional screening: No deficits noted. Tuberculosis screening: No symptoms or risk factors identified. Assessment: 14:55 General: Appears in no apparent distress. Behavior is calm, cooperative. Pain: Denies ar8 pain. Neuro: Level of Consciousness is awake, alert, obeys commands, Oriented to. Neuro: Level of Consciousness is awake, alert, obeys commands. Cardiovascular: Denies chest pain, Rhythm is sinus rhythm. Respiratory: Reports no SOB at this time Airway is patent Respiratory effort is even, unlabored, Respiratory pattern is regular, symmetrical. Vital Signs: 11:07 BP 109 / 67; Pulse 76; Resp 16; Temp 97.9(O); Pulse Ox 98% on R/A; Weight 53.52 kg; ss Height 5 ft. 1 in. ; Pain 0/10; 13:42 BP 127 / 71; Pulse 68; Resp 16; Temp 97.8; Pulse Ox 100% ; ts3 14:45 BP 115 / 60; Pulse 69; Resp 16; Pulse Ox 100% on R/A; ar8 16:04 BP 105 / 57; Pulse 66; Resp 16; Pulse Ox 100% on R/A; Pain 0/10; ar8 17:15 BP 104 / 57; Pulse 66; Resp 15; Pulse Ox 100% ; Pain 0/10; ar8 11:07 Body Mass Index 22.30 (53.52 kg, 154.94 cm) ss 11:07 Pain Scale: Adult ss 16:04 Pain Scale: Adult ar8 17:15 Pain Scale: Adult ar8 ED Course: 10:57 Patient arrived in ED. im 11:08 Triage completed. ss 11:08 Arm band placed on right wrist. ss 11:13 Javi Wang MD is Attending Physician. urbano 12:04 XRAY Chest (1 view) In Process Unspecified. EDMS 12:04 CT Head Brain wo Cont In Process Unspecified. EDMS 12:17 US Extremity Venous W Compression [place] In Process Unspecified. EDMS 13:43 Initial lab(s) drawn, by dental laboratory supervisor, sent to lab. Inserted saline lock: 22 gauge in left ts3 antecubital area, using aseptic technique. Blood collected. Flushed with 10 mL NS. 13:43 EKG done, by technical business analyst. ts3 14:41 Vipul Lopes, MYLENE is Primary Nurse. ar8 14:56 Bed in low position. Call light in reach. Side rails up X2. Provided Education on: plan ar8 of care. 14:56 No provider procedures requiring assistance completed. ar8 15:13 Shay Mon MD is Referral Physician. urbano 17:30 IV discontinued, intact, bleeding controlled, No redness/swelling at site. Pressure ar8 dressing applied. Administered Medications: 14:50 Drug: Famotidine IVP 20 mg IVP once; dilute with 10 mL 0.9% NaCl; give over 2 minutes ar8 Route: IVP; Site: left antecubital; 15:43 Follow up: Response: No adverse reaction ar8 14:50 Drug: NS 0.9% IV 500 ml 500 ml IV at 100 ml/hr once Volume: 500 ml; Route: IV; Rate: ar8 100 ml/hr; Site: left antecubital; 15:20 Follow up: Response: No adverse reaction; IV Status: Completed infusion; IV Intake: ar8 500ml 15:38 Drug: Potassium PO Effervescent Tablet 25 mEq PO once; dissolve in 4 ounces of water or ar8 juice Route: PO; 16:02 Follow up: Response: No adverse reaction ar8 Medication: 17:34 VIS not applicable for this client. ar8 Intake: 15:20 IV: 500ml; Total: 500ml. ar8 Outcome: 15:14 Discharge ordered by . urbano 17:30 Discharged to home via wheelchair, with family, ar8 17:30 Condition: stable 17:30 Discharge instructions given to patient, family, Instructed on discharge instructions, follow up and referral plans. medication usage, Demonstrated understanding of instructions, follow-up care, medications, 17:34 Patient left the ED. ar8 Signatures: Dispatcher [employer] EDJavi Talley MD MD cha Blanchard, Shelby, RN RN Joana Murphy Taisha 3 Vipul Lopes RN RN ar8
--- NOTE | 2024-12-25 15:15 | EDPHYS ---
Physician Documentation [facility] Name: Swapna Johnson Age: 74 yrs Sex: Female : 1950 Arrival Date: 12/25/2024 Time: 10:54 Bed 18 Private MD: ED Physician Javi Wang HPI: 12/25 13:24 This 74 yrs old Female presents to ER via Ambulatory with complaints of urbano Mental decline, Feet Swelling, Ankle Swelling, Shortness Of Breath. 13:24 The patient presents with decreased range of motion, pain, that is acute. The urbano complaints affect the right leg and left leg. Onset: The symptoms/episode began/occurred 3 day(s) ago. Context: The problem was sustained at an unknown location. Associated signs and symptoms: Pertinent positives: swelling. Modifying factors: The symptoms are alleviated by nothing, the symptoms are aggravated by nothing. Severity of symptoms: At their worst the symptoms were moderate, in the emergency department the symptoms are unchanged. The patient has not experienced similar symptoms in the past. Historical: - Allergies: 11:08 PENICILLINS; ss - PMHx: 11:08 breast cancer- currently in remission; Cirrhosis; Dementia; Hypertension; Hepatitis; ss gastric ulcer; - PSHx: 11:08 right side breast partial mastectomy; Tonsillectomy; ss - Immunization history:: Adult Immunizations unknown. - Infectious Disease History:: Denies. - Social history:: Smoking status: Patient denies any tobacco usage or history of. ROS: 13:26 Constitutional: Negative for fever, chills, and weight loss, ENT: Negative for injury, urbano pain, and discharge, Neck: Negative for injury, pain, and swelling, Cardiovascular: Negative for chest pain, palpitations, and edema, Respiratory: Negative for shortness of breath, cough, wheezing, and pleuritic chest pain, Abdomen/GI: Negative for abdominal pain, nausea, vomiting, diarrhea, and constipation, Back: Negative for injury and pain, : Negative for injury, bleeding, discharge, and swelling, Neuro: Negative for headache, weakness, numbness, tingling, and seizure, Psych: Negative for depression, anxiety, suicide ideation, homicidal ideation, and hallucinations, Allergy/Immunology: Negative for hives, rash, and allergies, Endocrine: Negative for neck swelling, polydipsia, polyuria, polyphagia, and marked weight changes, 13:26 Eyes: Positive for icterus, 13:26 MS/extremity: Positive for swelling, of the right leg and left leg, 13:26 Skin: Positive for jaundice, Exam: 13:26 Constitutional: This is a well developed, well nourished patient who is awake, alert, urbano and in no acute distress. Head/Face: Normocephalic, atraumatic. ENT: Nares patent. No nasal discharge, no septal abnormalities noted. Tympanic membranes are normal and external auditory canals are clear. Oropharynx with no redness, swelling, or masses, exudates, or evidence of obstruction, uvula midline. Mucous membranes moist. Neck: Trachea midline, no thyromegaly or masses palpated, and no cervical lymphadenopathy. Supple, full range of motion without nuchal rigidity, or vertebral point tenderness. No Meningismus. Chest/axilla: Normal chest wall appearance and motion. Nontender with no deformity. No lesions are appreciated. Cardiovascular: Regular rate and rhythm with a normal S1 and S2. No gallops, murmurs, or rubs. Normal PMI, no JVD. No pulse deficits. Respiratory: Lungs have equal breath sounds bilaterally, clear to auscultation and percussion. No rales, rhonchi or wheezes noted. No increased work of breathing, no retractions or nasal flaring. Abdomen/GI: Soft, non-tender, with normal bowel sounds. No distension or tympany. No guarding or rebound. No evidence of tenderness throughout. Back: No spinal tenderness. No costovertebral tenderness. Full range of motion. Female : Normal external genitalia. Neuro: Awake and alert, GCS 15, oriented to person, place, time, and situation. Cranial nerves II-XII grossly intact. Motor strength 5/5 in all extremities. Sensory grossly intact. Cerebellar exam normal. Normal gait. Psych: Awake, alert, with orientation to person, place and time. Behavior, mood, and affect are within normal limits. 13:26 Eyes: Pupils: no acute changes, equal, round, and reactive to light and accomodation, Extraocular movements: intact throughout, Conjunctiva: normal, no acute changes, Corneas: are normal, no acute changes, Sclera: icterus, is present, Lids and lashes: appear normal, funduscopic exam reveals no obvious abnormalities, 15:20 ECG was reviewed by the Attending Physician. [facility] Vital Signs: 11:07 BP 109 / 67; Pulse 76; Resp 16; Temp 97.9(O); Pulse Ox 98% on R/A; Weight 53.52 kg; ss Height 5 ft. 1 in. ; Pain 0/10; 13:42 BP 127 / 71; Pulse 68; Resp 16; Temp 97.8; Pulse Ox 100% ; ts3 14:45 BP 115 / 60; Pulse 69; Resp 16; Pulse Ox 100% on R/A; ar8 16:04 BP 105 / 57; Pulse 66; Resp 16; Pulse Ox 100% on R/A; Pain 0/10; ar8 17:15 BP 104 / 57; Pulse 66; Resp 15; Pulse Ox 100% ; Pain 0/10; ar8 11:07 Body Mass Index 22.30 (53.52 kg, 154.94 cm) ss 11:07 Pain Scale: Adult ss 16:04 Pain Scale: Adult ar8 17:15 Pain Scale: Adult ar8 MDM: 11:13 Medical Screening Exam initiated urbano 13:29 Differential diagnosis: Corneal abrasion of cellulitis. Differential Diagnosis altered urbano mental status, sepsis, flu. Differential Diagnosis: CVA, electrolyte abnormality, hypoglycemia, intracranial bleed, meningitis, overdose, pneumonia, seizure, sepsis, TIA, UTI, volume depletion. Data reviewed: vital signs, nurses notes, lab test result(s), EKG, radiologic studies, CT scan, plain films. Consideration of Admission/Observation Escalation of care including admission/observation considered. I considered the following discharge prescriptions or medication management in the emergency department Medications were administered in the Emergency Department. See MAR. Independent interpretation of the following test(s) in the Emergency Department EKG: See my EKG interpretation above. Test considered but Not performed: Ultrasound NO ABD USG. Historians other than the Patient: Daughter/Son: DAUGHTER. Care significantly affected by the following chronic conditions: Hypertension, Cancer, Liver Disease, PUD, CIRRHOSIS. Counseling: I had a detailed discussion with the patient and/or guardian regarding the historical points, exam findings, and any diagnostic results supporting the discharge/admit diagnosis, lab results, radiology results, the need to transfer to another facility, for higher level of care, [facility] does not immediately have the required specialist. 12/25 11:39 Order name: Basic Metabolic Panel; Complete Time: 15:00 [facility] 12/25 11:39 Order name: CBC with Diff; Complete Time: 15:00 [facility] 12/25 11:39 Order name: LFT's; Complete Time: 15:00 [facility] 12/25 11:39 Order name: Magnesium; Complete Time: 15:00 [facility] 12/25 11:39 Order name: NT PRO-BNP; Complete Time: 15:00 [facility] 12/25 11:39 Order name: PT-INR; Complete Time: 15:00 [facility] 12/25 11:39 Order name: Troponin HS; Complete Time: 15:00 [facility] 12/25 11:39 Order name: Lipase; Complete Time: 15:00 [facility] 12/25 11:39 Order name: UA Rfx Jose Cult if indicated; Complete Time: 16:38 [facility] 12/25 13:00 Order name: AMMONIA; Complete Time: 15:00 [facility] 12/25 13:50 Order name: CBC Smear Scan; Complete Time: 15:00 [facility] 12/25 11:39 Order name: XRAY Chest (1 view); Complete Time: 15:00 [facility] 12/25 11:39 Order name: US Extremity Venous W Compression [place]; Complete Time: 15:00 [facility] 12/25 11:39 Order name: CT Head Brain wo Cont; Complete Time: 15:00 [facility] 12/25 11:39 Order name: EKG; Complete Time: 11:40 [facility] 12/25 11:39 Order name: Cardiac monitoring; Complete Time: 13:42 [facility] 12/25 11:39 Order name: EKG - Nurse/Tech; Complete Time: 13:42 [facility] 12/25 11:39 Order name: IV Saline Lock; Complete Time: 13:42 [facility] 12/25 11:39 Order name: Labs collected and sent; Complete Time: 13:42 [facility] 12/25 11:39 Order name: O2 Per Protocol; Complete Time: 13:42 [facility] 12/25 11:39 Order name: O2 Sat Monitoring; Complete Time: 13:42 [facility] 12/25 11:39 Order name: IV Saline Lock - Large Bore; Complete Time: 13:42 [facility] 12/25 15:03 Order name: PO challenge: juice; Complete Time: 15:43 [facility] 12/25 15:18 Order name: Misc. Order: dc if ua neg ua; Complete Time: 15:43 urbano EC:20 Rate is 69 beats/min. Rhythm is regular. QRS Reynolds is Normal. AL interval is normal. QRS urbano interval is normal. QT interval is normal. No Q waves. T waves are Normal. No ST changes noted. Clinical impression: NSR w/ Non-specific ST/T Changes and No evidence of ischemia. Interpreted by me. Reviewed by me. Administered Medications: 14:50 Drug: Famotidine IVP 20 mg IVP once; dilute with 10 mL 0.9% NaCl; give over 2 minutes ar8 Route: IVP; Site: left antecubital; 15:43 Follow up: Response: No adverse reaction ar8 14:50 Drug: NS 0.9% IV 500 ml 500 ml IV at 100 ml/hr once Volume: 500 ml; Route: IV; Rate: ar8 100 ml/hr; Site: left antecubital; 15:20 Follow up: Response: No adverse reaction; IV Status: Completed infusion; IV Intake: ar8 500ml 15:38 Drug: Potassium PO Effervescent Tablet 25 mEq PO once; dissolve in 4 ounces of water or ar8 juice Route: PO; 16:02 Follow up: Response: No adverse reaction ar8 Disposition Summary: 12/25/24 15:14 Discharge Ordered Notes: Location: Home urbano Problem: new urbano Symptoms: have improved urbano Condition: Stable urbano Diagnosis - Alcoholic cirrhosis of liver urbano - Alcoholic cirrhosis of liver without ascites urbano - Hypokalemia urbano - Hypoglycemia, unspecified urbano - Edema, unspecified urbano Followup: urbano - With: Private Physician - When: 1 - 2 days - Reason: Recheck today's complaints, Continuance of care, Re-evaluation by your physician Followup: urbano - With: Shay Mon MD - When: 2 - 3 days - Reason: Recheck today's complaints, Continuance of care, Re-evaluation by your physician Discharge Instructions: - Discharge Summary Sheet urbano - Cirrhosis urbano - Potassium Content of Foods urbano - Edema urbano - Hypoglycemia urbano - Hepatic Encephalopathy urbano - Edema, [id number] urbano - Blood Glucose Monitoring, Adult urbano - Alcoholic Liver Disease, [id number] urbano - Hypoglycemia, [id number] urbano - Hypokalemia urbano - Alcoholic Liver Disease urbano - Liver Failure urbano - Peripheral Edema urbano - Preventing Hypoglycemia urbano Forms: - Medication Reconciliation Form urbano - Antibiotic Education urbano - Prescription Opioid Use urbano - Patient Portal Instructions [facility] - Leadership Thank You Letter [facility] Prescriptions: - Protonix 40 mg Oral Tablet - take 1 tablet ORAL route once daily; 30 tablet; Refills: 0, Product Selection [facility] Permitted - Lactulose 10 gram/15 mL Oral solution - take 15 milliliter ORAL route once daily; 300 milliliter; Refills: 0, Product [facility] Selection Permitted - Spironolactone 25 mg Oral tablet - take 1 tablet ORAL route 2 times per day; 20 tablet; Refills: 0, Product [facility] Selection Permitted Signatures: Dispatcher [employer] Javi Flores MD MD cha Blanchard, Shelby, RN RN ss Vipul Lopes RN RN ar8
[2024-12-25 16:11] LABS: Sqamous Epithelial None Seen /HPF (None Seen); Urine Crystals Unidentified Few /HPF (None Seen); Urine Culture Reflex Order NOT NEEDED; Urine Microscopic Reflex YN ORDER UMIC
[2024-12-25 18:52] VITALS: TEMP 97.8; O2SAT 100
[2024-12-25 18:56] VITALS: BP 104/57
== END 2024-12-25 17:34 | disposition home or self-care (01) ==
LOC: ER 10:54
DX: K70.31 Alcoholic cirrhosis of liver with ascites (principal); E87.6 Hypokalemia; E16.2 Hypoglycemia, unspecified; R60.9 Edema, unspecified
CPT/HCPCS: 93005; 85025; 81001; 80048; 36415; 82140; 83735; 85610; 80076; 84484; 83690; 83880; 70450; 71045; 93970; 96374; 99284; J7040

== ENCOUNTER 2025-01-25 00:59 | Inpatient (IN) | payer OTHER, MEDICARE ==
[2025-01-25] MEDS ORDERED: NA CHLORIDE 0.9% 1,000 ML ONE (01:23)
[2025-01-25 01:33] LABS: Absolute Lymphocytes (CBC) 0.2 K/uL (0.7-4.9); Hematocrit 33.0 % (36.0-45.0); Hemoglobin 10.9 g/dL (12.0-15.0); MCH 31.3 pg (27.0-35.0); MCHC 33.1 g/dL (32.0-36.0); MCV 94.7 fL (80-100); MPV 7.5 fL (7.6-11.3); Nucleated RBC Absolute Count 0.0 (0-0); Nucleated Red Blood Cells % 0.0 % (0-0); RBC Red Blood Cell Count 3.49 M/uL (3.86-4.86); White Blood Count 7.00 thou/uL (4.3-10.9)
[2025-01-25 01:55] LABS: ALT/SGPT 20.0 U/L (13-56); AST/SGOT 44.0 U/L (15-37); Albumin 2.5 g/dL (3.4-5.0); Albumin/Globulin Ratio 0.6 (1.1-1.8); Alkaline Phosphatase 182.0 U/L (45-117); Anion Gap 9.2 mEq/L (5.0-15.0); BUN Blood Urea Nitrogen 11.0 mg/dL (7-18); Bilirubin Indirect, Calculated 1.4 mg/dL (0.2-0.8); Globulin 4.0 g/dL (2.3-3.5); Glucose Level 92.0 mg/dL (74-106); Potassium 3.2 mEq/L (3.5-5.1)
[2025-01-25 02:09] LABS: Troponin High Sensitivity 119.1 pg/mL (<58.9)
--- NOTE | 2025-01-25 03:31 | RAD REPORT ---
EXAM: CT Head and Cervical Spine Without Intravenous Contrast CLINICAL HISTORY: The patient is 74 years old and is Female; TRAUMA TECHNIQUE: Axial computed tomography images of the head/brain and cervical spine without intravenous contrast. Sagittal and coronal reformatted images were created and reviewed. This CT exam was performed using one or more of the following dose reduction techniques: automated exposure control, adjustmen t of the mA and/or kV according to patient size, and/or use of iterative reconstruction technique. COMPARISON: No relevant prior studies available. FINDINGS: ARTIFACTS: The exam is suboptimal secondary to motion artifact. BRAIN: There is diffuse cerebral atrophy present. There is patchy hypoattenuation of the deep w kleber matter which is non-specific, but most likely owing to chronic small vessel ischemic change in a patient of this age group. No intracranial hemorrhage, mass effect or midline shift is seen. Ther e are no extra-axial fluid collections. The mendoza-white differentiation is maintained. There is no cerebral edema. VENTRICLES: Unremarkable. No ventriculomegaly. SKULL: No acute fracture. SINUSES: Unremarkable as visualized. No acute sinusitis. MASTOID AIR CELLS: Unremarkable as visualized. No mastoid effusion. VERTEBRAE: The vertebral body heights are grossly maintained. The alignment is also grossly maint ained. DISCS/SPINAL CANAL/NEURAL FORAMINA: Intervertebral disc space narrowing with anterior osteophyte formation is noted throughout. There is mild diffuse canal stenosis. No significant neural foraminal narrowing is noted. SOFT TISSUES: Left frontal scalp soft tissue swelling is present. LUNG APICES: Scarring and groundglass opacity within the left lung apex is noted. IMPRESSION: 1. No acute intracranial findings. Left frontal scalp soft tissue swelling. 2. No definite cervical spine fracture. However, examination is limited secondary to motion artifac t. Recommend repeat CT of the cervical spine. Electronically signed by: Leidy Thompson MD 01/25/2025 02:56 AM CDT Due to temporary technical issues with the PACS/[employer] reporting system, reports are being kirk d by the in-house radiologist without review as a courtesy to ensure prompt reporting the interpreting radiologist is fully responsible for the content of the report. Transcribed Date/Time: 01/25/2025 3:31 AM
--- NOTE | 2025-01-25 05:50 | RAD REPORT ---
EXAM: XR Chest, 1 View CLINICAL HISTORY: BLUNT CHEST TRAUMA TECHNIQUE: Frontal view of the chest. COMPARISON: XR Chest dated 12/25/2024, CT Chest dated 12/31/2024 FINDINGS: Lungs: Central pulmonary vascular and interstitial prominence and patchy right greater than left pe rihilar opacities. Pleural space: Unremarkable. No pneumothorax. Heart: Unremarkable. No cardiomegaly. Mediastinum: Unremarkable. Normal mediastinal contour. Bones/joints: Unremarkable. No identifiable fracture. Soft tissues: Surgical clips project over the right chest wall. Vasculature: Thoracic aortic atherosclerosis. Upper abdomen: Marked elevation of the right hemidiaphragm progressed from the prior. IMPRESSION: 1. Findings which may be related to pulmonary congestion. Superimposed infection not excluded. 2. No identifiable fracture. 3. Marked elevation of the right hemidiaphragm progressed from the prior potentially in part relate d to eventration with underlying volume loss. Please correlate for the possibility of phrenic nerve palsy. If concern for diaphragmatic injury, chest CT is recommended. Electronically signed by: Orlin Rendon MD 01/25/2025 01:59 AM T Due to temporary technical issues with the [employer]ACS/[employer] reporting system, reports are being kirk d by the in-house radiologist without review as a courtesy to ensure prompt reporting. The interpreting radiologist is fully responsible for the content of the report. Transcribed Date/Time: 01/25/2025 5:50 AM
--- NOTE | 2025-01-25 05:51 | RAD REPORT ---
EXAM: XR Pelvis, 1 or 2 Views CLINICAL HISTORY: BLUNT TRAUMA TECHNIQUE: Frontal view of the pelvis. COMPARISON: No relevant prior studies available. FINDINGS: Bones/joints: The right femoral neck is foreshortened. This may be related to patient positioning. No dislocation. Soft tissues: Unremarkable. IMPRESSION: The right femoral neck is foreshortened. This may be related to patient positioning. Please correlate with point tenderness in the setting of an acute fracture. Electronically signed by: Orlin Rendon MD 01/25/2025 02:00 AM CDT Due to temporary technical issues with the PACS/[employer] reporting system, reports are being kirk d by the in-house radiologist without review as a courtesy to ensure prompt reporting. The interpreting radiologist is fully responsible for the content of the report. Transcribed Date/Time: 01/25/2025 5:51 AM
--- NOTE | 2025-01-25 06:57 | RAD REPORT ---
EXAMINATION: CTA CHEST PE CLINICAL INDICATION: Female, 74 years old. syncope TECHNIQUE: This examination was performed according to an angiographic protocol with 3D post-processi ng. This involves 3D reconstructions, MIPs, volume rendered images and/or shaded surface rendering. One or more of the following dose reduction techniques were used: Automated exposure control, adjustm ent of the mA and/or kV according to patient size, and/or iterative reconstruction. Unless otherwise specified, incidental findings do not require dedicated imaging follow-up. [id number]. COMPARISON: Same-day chest x-ray FINDINGS: LOWER NECK: Visualized thyroid gland and soft tissues are normal. MEDIASTINUM AND LYMPH NODES: No mediastinal mass or fluid collection. Normal size mediastinal, hilar, and axillary lymph nodes. Moderate distal esophageal thickening which could reflect esophagitis. THORACIC AORTA: Ascending thoracic aortic aneurysm measuring 4 cm. PULMONARY ARTERIES: Enlarged main pulmonary arteries could indicate pulmonary artery hypertension. No pulmonary emboli identified to the level of the segmental pulmonary arteries. The subsegmental pulmonary arteries cannot be adequately assessed due to motion/suboptimal contrast opacification. HEART: Mild cardiomegaly. Moderate coronary artery calcifications.No significant pericardial effusion . LUNGS AND AIRWAYS: Elevated right hemidiaphragm which may be secondary to the large volume of ascites . Widespread irregular bilateral airspace disease noted. Motion artifact limits evaluation for pulmonary nodule detection. PLEURA: Small right pleural effusion. No pneumothorax. OSSEOUS STRUCTURES AND CHEST WALL: Multilevel degenerative changes. No acute fracture. UPPER ABDOMEN: Large volume of ascites. Cirrhosis. Splenomegaly. Cholelithiasis. IMPRESSION: Negative for pulmonary embolism to the level of the segmental pulmonary arteries. The subsegmental ve ssels cannot be adequate assessed. Ill-defined bilateral airspace disease suspicious for pneumonia. Elevated right hemidiaphragm likely due to large volume of abdominal ascites that is presumably relat ed to cirrhosis.
--- NOTE | 2025-01-25 07:00 | RAD REPORT ---
EXAMINATION: C Spine Wo Con CLINICAL INDICATION: Female, 74 years old. trauma TECHNIQUE: Axial CT images through the cervical spine were obtained without intravenous contrast. Sag ittal and coronal reformatted images were created from the data set. One or more of the following dose reduction techniques were used: Automated exposure control, adjustment of the mA and/or kV accor ding to patient size, and/or iterative reconstruction. Unless otherwise specified, incidental findings do not require dedicated imaging follow-up. [id number]. COMPARISON: No prior exams FINDINGS: ALIGNMENT: The cervical spine has normal alignment without scoliosis or spondylolisthesis. BONE: Vertebral body heights are maintained. No aggressive osseous lesions. DEGENERATIVE: Multilevel cervical spondylosis with evidence of bilateral neural foraminal narrowing. No high grade central spinal stenosis. Neural foraminal narrowing is severe on the left at C3-4 and C5-6 and on the right at C3-4, C4-5, C5-6. SOFT TISSUE: No significant abnormalities in the soft tissue of the neck. The visualized lung apices are clear. IMPRESSION: No acute cervical spine abnormalities.
--- NOTE | 2025-01-25 07:29 | EDPHYS ---
Physician Documentation [facility] Name: Swapna Johnson Age: 74 yrs Sex: Female : 1950 Arrival Date: 01/25/2025 Time: 00:59 Bed 4 Private MD: ED Physician Ernesto Velasco HPI: 01/25 06:35 This 74 yrs old Female presents to ER via EMS with complaints of Fall Injury. tt7 06:35 half-way staff reportedly heard a loud noise and came to check on the patient and tt7 found her unconscious on the floor, she then regained consciousness shortly thereafter was awake and alert with an appropriate mental status, patient reports some mild shortness of breath, no other symptoms, not currently in any pain, past medical history includes breast cancer in remission, cirrhosis, dementia. Historical: - Allergies: 01:11 PENICILLINS; cp4 - PMHx: 01:11 breast cancer- currently in remission; Cirrhosis; Dementia; gastric ulcer; Hypertension;cp4 07:05 Hepatitis; C; Duodenal Ulcer; Portal Hypertension; Esophageal and gastric Varices; aa5 Ascites; Lumbar disc degeneration; Bipolar disorder; Alzheimer's disease; Anorexia; Protein-calorie malnutrition; - PSHx: 01:11 right side breast partial mastectomy; Tonsillectomy; cp4 - Immunization history:: Adult Immunizations up to date. - Infectious Disease History:: Denies. - Social history:: Smoking status: unknown. ROS: 06:37 Constitutional: negative for fever. Cardiovascular: negative for chest pain. tt7 Abdomen/GI: negative for abdominal pain, nausea, vomiting, diarrhea. MS/Extremity: negative for injury and deformity. Skin: negative for rash. Neuro: negative for focal weakness. 06:37 Respiratory: Positive for shortness of breath, Vital Signs: 01:09 BP 137 / 86; Pulse 101; Resp 18; Temp 98.1; Pulse Ox 97% on 2 lpm NC; Pain 0/10; cp4 02:17 BP 146 / 98; Pulse 112; Resp 17 S; Pulse Ox 99% on R/A; lg3 03:15 BP 143 / 76; Pulse 115; Resp 21; Pulse Ox 93% ; mf3 05:02 BP 124 / 75; Pulse 97; Resp 19 S; Pulse Ox 97% on R/A; lg3 06:35 BP 125 / 75; Pulse 83; Resp 17 S; Pulse Ox 94% on R/A; lg3 07:00 BP 120 / 68; Pulse 81; Resp 16 S; Pulse Ox 95% on R/A; aa5 08:00 BP 134 / 85; Pulse 89; Resp 16 S; Temp 97.9(O); Pulse Ox 95% on R/A; aa5 01:09 Pain Scale: Adult cp4 MDM: 01:10 Medical Screening Exam initiated tt7 06:38 Differential diagnosis: closed head injury, contusion, fracture, laceration, Cardiac tt7 syncope, ACS, intracranial hemorrhage, pulmonary embolism, cervical spine fracture, pneumonia, pulmonary edema, acute renal failure, anemia. Data reviewed: vital signs, nurses notes, lab test result(s), cardiac enzymes, CBC, electrolytes, hepatic panel, EKG, radiologic studies, CT scan, plain films. Care significantly affected by the following chronic conditions: Liver Disease. ED course: I have reviewed and independently interpreted the patient's EKG performed on 01/25/2025 at 0041. On my interpretation, sinus tachycardia, ventricular rate 104 bpm, normal axis, normal QRS interval, normal ST segments, no STEMI. ED course: 74-year-old female with fall and loss of consciousness, unclear if loss of consciousness was as a result of head trauma or if syncopal episode preceded the fall, the patient's vital signs are stable, patient has evidence of head injury with laceration to the forehead, CT imaging of the head and cervical spine ordered, chest x-ray and pelvis x-ray ordered to assess for acute fractures, broad medical workup initiated to evaluate for metabolic and cardiac causes of loss of consciousness, patient's EKG is without acute ischemic findings, chest x-ray does show some findings concerning for pulmonary edema versus infectious process, patient does have thrombocytopenia on laboratory studies as well as elevated bilirubin and liver function test, this is consistent with her history of cirrhosis, troponin is mildly elevated, given elevated troponin and history of cancer and tachycardia with mild hypoxia will order CT angiogram of the chest to rule out pulmonary embolism, patient not having any chest pain so despite the mild elevation in troponin do not suspect ACS, no ischemic findings on EKG, will forego any antiplatelet agents or anticoagulation at this time given patient's thrombocytopenia, patient will require inpatient hospitalization, will await for results of CT angiogram. 01/25 01:12 Order name: Basic Metabolic Panel; Complete Time: 02:11 tt7 01/25 01:12 Order name: CBC with Diff; Complete Time: 02:11 tt7 01/25 01:12 Order name: LFT's; Complete Time: 02:11 tt7 01/25 01:12 Order name: Troponin HS; Complete Time: 02:11 tt7 01/25 08:38 Order name: Basic Metabolic Panel EDMS 01/25 08:38 Order name: Basic Metabolic Panel EDMS 01/25 08:38 Order name: Basic Metabolic Panel EDMS 01/25 08:38 Order name: Basic Metabolic Panel EDMS 01/25 08:38 Order name: Basic Metabolic Panel EDMS 01/25 08:38 Order name: Basic Metabolic Panel EDMS 01/25 08:38 Order name: Basic Metabolic Panel EDMS 01/25 08:38 Order name: Basic Metabolic Panel EDMS 01/25 08:38 Order name: Magnesium EDMS 01/25 08:38 Order name: Magnesium EDMS 01/25 08:38 Order name: Magnesium EDMS 01/25 08:38 Order name: Magnesium EDMS 01/25 08:38 Order name: Magnesium EDMS 01/25 08:38 Order name: Magnesium EDMS 01/25 08:38 Order name: Magnesium EDMS 01/25 08:38 Order name: Magnesium EDMS 01/25 08:38 Order name: Phosphorus EDMS 01/25 08:38 Order name: Phosphorus EDMS 01/25 08:38 Order name: Phosphorus EDMS 01/25 08:38 Order name: Phosphorus EDMS 01/25 08:38 Order name: Phosphorus EDMS 01/25 08:38 Order name: Phosphorus EDMS 01/25 08:38 Order name: Phosphorus EDMS 01/25 08:38 Order name: Phosphorus EDMS 01/25 08:38 Order name: Troponin High Sensitivity EDMS 01/25 08:38 Order name: Troponin High Sensitivity EDMS 01/25 08:39 Order name: CBC with Automated Diff EDMS 01/25 08:39 Order name: CBC with Automated Diff EDMS 01/25 08:39 Order name: CBC with Automated Diff EDMS 01/25 08:39 Order name: CBC with Automated Diff EDMS 01/25 08:39 Order name: CBC with Automated Diff EDMS 01/25 08:39 Order name: CBC with Automated Diff EDMS 01/25 08:39 Order name: CBC with Automated Diff EDMS 01/25 08:39 Order name: CBC with Automated Diff EDMS 01/25 08:39 Order name: Troponin High Sensitivity EDMS 01/25 01:12 Order name: XRAY Chest (1 view); Complete Time: 07:06 tt7 01/25 01:12 Order name: CT Head C Spine; Complete Time: 07:06 tt7 01/25 01:12 Order name: Pelvis XRAY; Complete Time: 07:06 tt7 01/25 05:05 Order name: CT C Spine; Complete Time: 07:06 tt7 01/25 05:05 Order name: CT Chest For PE Angio; Complete Time: 07:06 tt7 01/25 08:43 Order name: Abdomen Exam Complete EDMS 01/25 01:12 Order name: EKG; Complete Time: 01:12 tt7 01/25 08:39 Order name: Physical Therapy Consult EDMS 01/25 01:12 Order name: Cardiac monitoring; Complete Time: tt7 01/25 01:12 Order name: EKG - Nurse/Tech; Complete Time: 01:44 tt7 01/25 01:12 Order name: IV Saline Lock; Complete Time: tt7 01/25 01:12 Order name: Labs collected and sent; Complete Time: tt7 01/25 01:12 Order name: O2 Per Protocol; Complete Time: tt7 01/25 01:12 Order name: O2 Sat Monitoring; Complete Time: : tt Administered Medications: 01:29 Drug: NS 0.9% IV 1000 ml IV at 1000 ml once; to be given as a bolus over 60 minutes cp4 Route: IV; Rate: 1000 ml; Site: left antecubital; 06:37 Follow up: Response: No adverse reaction; IV Status: Completed infusion; IV Intake: lg3 1000ml 07:35 Drug: levofloxacin IVPB 750 mg 150 ml IVPB once over 90 mins Volume: 150 ml; Route: aa5 IVPB; Infused Over: 90 mins; Site: left forearm; 07:55 Follow up: Response: No adverse reaction aa5 Disposition Summary: 01/25/25 07:28 Hospitalization Ordered Notes: Hospitalization Status: Observation tt7 Provider: Karan Mccarty tt7 Location: Telemetry/MedSurg (observation) tt7 Condition: Fair tt7 Problem: new tt7 Symptoms: have improved tt7 Bed/Room Type: Standard tt7 Room Assignment: 204(01/25/25 08:55) eb Diagnosis - Pneumonia, unspecified organism tt7 - SYNCOPE tt7 - THROMBOCYTOPENIA tt7 - CLOSED HEAD INJURY tt7 - FOREHEAD LACERATION tt7 - ELEVATED TROPONIN tt7 Forms: - Medication Reconciliation Form tt7 - SBAR form tt7 - Leadership Thank You Letter tt7 Signatures: Dispatcher [employer] EDND Marcia Purvis, RN RN aa5 Carine Burgess Christina cp4 Ernesto Velasco, DO DO tt7 Alexa Oro RN lg3 Corrections: (The following items were deleted from the chart) 01:13 01:13 Pelvis+[email or web address] ordered. [facility] EDND 06:38 06:35 half-way staff reportedly heard a loud noise and came to check on the patient tt7 and found her unconscious on the floor, she then regained consciousness shortly thereafter was awake and alert with an appropriate mental status. tt7 08:55 07:28 tt7 eb 09:01 01:11 PMHx: breast cancer- currently in remission; cp4 aa5 09:01 01:11 PMHx: Hepatitis; cp4 aa5
--- NOTE | 2025-01-25 07:29 | ER ---
Nurse's Notes [facility] Name: Swapna Johnson Age: 74 yrs Sex: Female : 1950 Arrival Date: 01/25/2025 Time: 00:59 Bed 4 Private MD: Diagnosis: Pneumonia, unspecified organism;SYNCOPE;THROMBOCYTOPENIA;CLOSED HEAD INJURY;FOREHEAD LACERATION;ELEVATED TROPONIN Presentation: 01/25 01:09 Chief complaint: EMS states: patient is a [facility] and was found on floor cp4 unconscious. No blood thinners. Reopened previous fall injury on head. Coronavirus screen: Client denies travel out of the [place] in the last 14 days. At this time, the client does not indicate any symptoms associated with coronavirus-19. Ebola Screen: Patient negative for fever greater than or equal to 101.5 degrees Fahrenheit, and additional compatible Ebola Virus Disease symptoms Patient denies exposure to infectious person. Patient denies travel to an Ebola-affected area in the 21 days before illness onset. No symptoms or risks identified at this time. Initial Sepsis Screen: Does the patient meet any 2 criteria? HR > 90 bpm. No. Patient's initial sepsis screen is negative. Does the patient have a suspected source of infection? No. Patient's initial sepsis screen is negative. Risk Assessment: Do you want to hurt yourself or someone else? Patient reports no desire to harm self or others. Onset of symptoms was January 25, 2025 at 00:00. 01:09 Method Of Arrival: EMS: [facility] cp4 01:09 Acuity: RAFAL 3 cp4 Triage Assessment: 01:11 General: Appears in no apparent distress. comfortable, Behavior is calm, cooperative, cp4 appropriate for age. Pain: Denies pain. Historical: - Allergies: 01:11 PENICILLINS; cp4 - PMHx: 01:11 breast cancer- currently in remission; Cirrhosis; Dementia; gastric ulcer; Hypertension;cp4 07:05 Hepatitis; C; Duodenal Ulcer; Portal Hypertension; Esophageal and gastric Varices; aa5 Ascites; Lumbar disc degeneration; Bipolar disorder; Alzheimer's disease; Anorexia; Protein-calorie malnutrition; - PSHx: 01:11 right side breast partial mastectomy; Tonsillectomy; cp4 - Immunization history:: Adult Immunizations up to date. - Infectious Disease History:: Denies. - Social history:: Smoking status: unknown. Screenin:30 [facility] ED Fall Risk Assessment (Adult) History of falling in the last 3 months, cp4 including since admission Yes- fall prone (multiple falls) (3 pts) Confusion or Disorientation Yes (5 pts) Intoxicated or Sedated No (0 pts) Impaired Gait Yes (1 pt) Mobility Assist Device Used No (0 pt) Altered Elimination No (0 pt) Score/Fall Risk Level 3 or more points = High Risk Oriented to surroundings, Maintained a safe environment, Assessed \T\ reinforced patient's understanding of fall precautions, Hourly rounding (assess needs \T\ fall precautionary measures) done, Implemented a Fall Risk Plan of Care, Apply high fall risk patient identification: yellow non skid footwear/ fall signage. Abuse screen: Denies threats or abuse. Denies injuries from another. Nutritional screening: No deficits noted. Tuberculosis screening: No symptoms or risk factors identified. Never had TB. Assessment: 01:30 General: Appears in no apparent distress. comfortable, Behavior is calm, cooperative, cp4 appropriate for age. Pain: Denies pain. Neuro: Level of Consciousness is awake, alert, obeys commands, Oriented to person, place. Cardiovascular: Patient's skin is warm and dry. Respiratory: Airway is patent Respiratory effort is even, unlabored. GI: No signs and/or symptoms were reported involving the gastrointestinal system. : No signs and/or symptoms were reported regarding the genitourinary system. EENT: No signs and/or symptoms were reported regarding the EENT system. Derm: No signs and/or symptoms reported regarding the dermatologic system. Musculoskeletal: No signs and/or symptoms reported regarding the musculoskeletal system. Injury Description: Laceration sustained to forehead is clean, 0.5 to 2.5 cm long, was sustained 30-60 minutes ago. a small amount of bleeding noted at this time. 02:15 Reassessment: Patient appears in no apparent distress at this time. No changes from lg3 previously documented assessment. Patient and/or family updated on plan of care and expected duration. Pain level reassessed. Patient is alert, oriented x 3, equal unlabored respirations, skin warm/dry/pink. 05:02 Reassessment: Patient appears in no apparent distress at this time. No changes from lg3 previously documented assessment. Patient and/or family updated on plan of care and expected duration. Pain level reassessed. Patient is alert, oriented x 3, equal unlabored respirations, skin warm/dry/pink. 06:35 Reassessment: Patient appears in no apparent distress at this time. No changes from lg3 previously documented assessment. Patient and/or family updated on plan of care and expected duration. Pain level reassessed. Patient is alert, oriented x 3, equal unlabored respirations, skin warm/dry/pink. 07:05 General: Appears comfortable, Behavior is calm, cooperative. Pain: Denies pain. Neuro: aa5 Level of Consciousness is awake, obeys commands, confused, Oriented to person, place. Cardiovascular: Heart tones S1 S2 present Rhythm is sinus rhythm. Respiratory: Airway is patent Respiratory effort is even, unlabored, Respiratory pattern is regular, symmetrical, Breath sounds are clear in right upper lobe, right middle lobe, right lower lobe, right posterior upper lobe, right posterior middle lobe and right posterior lower lobe Breath sounds are diminished in left upper lobe, left lower lobe, left posterior upper lobe and left posterior lower lobe. GI: Abdomen is distended, Bowel sounds present X 4 quads. Abd is non tender X 4 quads. : No signs and/or symptoms were reported regarding the genitourinary system. Brief noted. EENT: Redness noted to left eye with yellow drainage noted, left eye was cleaned using saline and soft gauze. Mild redness and drainage noted to right eye. . Derm: Skin is dry, Skin is jaundiced, Skin temperature is warm Quarter-sized abrasion noted to right knee, cleaned with saline, dressed with Neosporin and gauze. Musculoskeletal: Range of motion: intact in all extremities. Vital Signs: 01:09 BP 137 / 86; Pulse 101; Resp 18; Temp 98.1; Pulse Ox 97% on 2 lpm NC; Pain 0/10; cp4 02:17 BP 146 / 98; Pulse 112; Resp 17 S; Pulse Ox 99% on R/A; lg3 03:15 BP 143 / 76; Pulse 115; Resp 21; Pulse Ox 93% ; mf3 05:02 BP 124 / 75; Pulse 97; Resp 19 S; Pulse Ox 97% on R/A; lg3 06:35 BP 125 / 75; Pulse 83; Resp 17 S; Pulse Ox 94% on R/A; lg3 07:00 BP 120 / 68; Pulse 81; Resp 16 S; Pulse Ox 95% on R/A; aa5 08:00 BP 134 / 85; Pulse 89; Resp 16 S; Temp 97.9(O); Pulse Ox 95% on R/A; aa5 01:09 Pain Scale: Adult cp4 ED Course: 00:59 Patient arrived in ED. kmf 01:10 Ernesto Velasco DO is Attending Physician. tt7 01:11 Triage completed. cp4 01:11 Arm band placed on right wrist. Patient placed in a hallway bed, on a stretcher. cp4 01:21 Alexa Oro, MYLENE is Primary Nurse. lg3 01:30 XRAY Chest (1 view) In Process Unspecified. EDMS 01:30 Pelvis XRAY In Process Unspecified. EDMS 01:30 Bed in low position. Call light in reach. Side rails up X2. Provided Education on: cp4 falls. 01:30 No provider procedures requiring assistance completed. Initial lab(s) drawn, by [facility], [place] sent to lab. Maintain EMS IV. Dressing intact. Good blood return noted. Site clean \T\ dry. Gauge \T\ site: 20 LAC. Flushed with 10 mL NS. 02:03 CT Head C Spine In Process Unspecified. EDMS 06:05 CT C Spine In Process Unspecified. EDMS 06:05 CT Chest For PE Angio In Process Unspecified. EDMS 07:28 Karan Mccarty is Hospitalizing Provider. tt7 09:50 Patient admitted, IV remains in place. aa5 Administered Medications: 01:29 Drug: NS 0.9% IV 1000 ml IV at 1000 ml once; to be given as a bolus over 60 minutes cp4 Route: IV; Rate: 1000 ml; Site: left antecubital; 06:37 Follow up: Response: No adverse reaction; IV Status: Completed infusion; IV Intake: lg3 1000ml 07:35 Drug: levofloxacin IVPB 750 mg 150 ml IVPB once over 90 mins Volume: 150 ml; Route: aa5 IVPB; Infused Over: 90 mins; Site: left forearm; 07:55 Follow up: Response: No adverse reaction aa5 Medication: 01:30 VIS not applicable for this client. cp4 Intake: 06:37 IV: 1000ml; Total: 1000ml. lg3 Outcome: 07:28 Decision to Hospitalize by Provider. tt7 09:50 Patient left the ED. aa5 09:50 Admitted to Tele accompanied by tech, via stretcher, with chart, aa5 :50 Condition: stable 09:50 Instructed on the need for admit, Demonstrated understanding of instructions, Signatures: Dispatcher [employer] Marcia Jefferson RN RN aa5 Alexa Oro RN RN [place]3 Deborah Vital cp4 Nory Alegria [facility] Anastasia Esteves RN RN 3 Ernesto Velasco DO DO tt7 Corrections: (The following items were deleted from the chart) 09: 01:11 PMHx: breast cancer- currently in remission; cp4 aa5 09:01 01:11 PMHx: Hepatitis; cp4 aa5 10:00 09:59 Patient left the ED. aa5 aa5
[2025-01-25] MEDS ORDERED: Levofloxacin 750mg IV 750 MG/150 ML BAG IV ONE (07:37)
--- NOTE | 2025-01-25 08:46 | P.HP ---
Certification for Inpatient Patient admitted to: Inpatient With expected LOS: >2 Midnights Practitioner: I am a practitioner with admitting privileges, knowledge of patient current condition, hospital course, and medical plan of care. Services: Services provided to patient in accordance with Admission requirements found in Title 42 Section 412.3 of the Code of Federal Regulations Patient History Date of Service: 01/25/25 Reason for admission: Fall, elevated troponin History of Present Illness: Jazzmine Johnson is a 74 year old female with Pmhx Cirrhosis, hepatitis C, portal hypertension, ascites, HTN, Breast cancer, splenomegaly, osteoarthritis, CAD, vit B12 and iron deficiency anemia, bipolar/ Depression, duodenal ulcer, diaphragmatic hernia, Alzeihmers, cognitive communication deficit, dysphagia, left eye acute atopic conjuntivitis who presents to the ED status post fall from her wheelchair while transferring from the wheelchair to the toilet. She reports "blacking out" and presents with a bruise and bump to left forehead as well as abrasions to right knee. She reports falling frequently. During examination she became confused about her surroundings. Noted that she has Alzheimer's and cognitive communication disorder. Unable to retain family past medical history due to confusion. CTA chest PE protocol reports "Negative for pulmonary embolism to the level of the segmental pulmonary arteries. The subsegmental vessels cannot be adequate assessed. Ill-defined bilateral airspace disease suspicious for pneumonia. Elevated right hemidiaphragm likely due to large volume of abdominal ascites that is presumably related to cirrhosis. Not mentioned in the original report, possibly acute right anterior fourth rib fracture. Other remote appearing rib fractures identified though there is significant motion artifact. No pneumothorax." Cervical spine CT "No acute cervical spine abnormalities" Head and cervical spine CT "No acute intracranial findings. Left frontal scalp soft tissue swelling. 2. No definite cervical spine fracture. However, examination is limited secondary to motion artifact. Recommend repeat CT of the cervical spine." Pelvis x-ray report "The right femoral neck is foreshortened. This may be related to patient positioning. Please correlate with point tenderness in the setting of an acute fracture." Chest x-ray reports "1. Findings which may be related to pulmonary congestion. Superimposed infection not excluded. 2. No identifiable fracture 3. Marked elevation of the right hemidiaphragm progressed from the prior potentially in part related to eventration with underlying volume loss. Please correlate for the possibility of phrenic nerve palsy. If concern for diaphragmatic injury, chest CT is recommended." Swapna will be admitted to hospitalist service for further evaluation and treatment of frequent falls and pneumonia. - Past Medical/Surgical History -: Hypertension -: Alcoholic cirrhosis -: Breast cancer -: Depression with anxiety -: History of gastric varices -: GERD -: History of right breast mastectomy -: Recent EGD, colonoscopy and banding Psychosocial/ Personal History: Patient lives at home - Social History Smoking Status: Never smoker Alcohol use: No CD- Drugs: No Caffeine use: No Review of Systems Other: Per HPI Physical Examination - Physical Exam General: Alert, In no apparent distress, Oriented x2 HEENT: Other (Left forehead bump and bruising) Neck: Supple Respiratory: Clear to auscultation bilaterally, Normal air movement Cardiovascular: Normal pulses, Regular rate/rhythm, Normal S1 S2 Gastrointestinal: Normal bowel sounds, Soft and benign Musculoskeletal: No clubbing, Other (Abrasions to right knee) Integumentary: No rashes Neurological: Normal speech, Normal tone - Studies Laboratory Data (last 24 hrs) 01/25/25 01/25/25 01:30 01:30 WBC 7.00 Hgb 10.9 L Hct 33.0 L Plt Count 60 L Sodium 140 Potassium 3.2 L BUN 11 Creatinine 0.72 Glucose 92 Total Bilirubin 2.1 H AST 44 H ALT 20 Alkaline Phosphatase 182 H Assessment and Plan - Plan Assessment and Plan Fall associated with left head and right knee injury acute right anterior fourth rib fracture History of Osteoarthritis -Physical therapy, reports using a wheelchair -Supportive care -Orthostatic vitals -Pelvis x-ray report "The right femoral neck is foreshortened. This may be related to patient positioning. Please correlate with point tenderness in the setting of an acute fracture." - Pain control - UA pending Elevated troponin CAD - EKG: No obvious ST segment changes - Serial troponin pending - Ordered transthoracic echocardiogram - Consult Cardiology - recommendations appreciated - S/P aspirin 324 mg PO x 1 in ED - Start daily baby aspirin and statin - Symptom control with PRN acetaminophen, nitroglycerin, morphine -continuous telemetry -TSH, A1C, lipid panel pending - If CAD is confirmed, plan to start beta-elvis, ISIDORO-inhibitor/ARB, statin with 24 hours -Orthostatics Vitals - Levaquin given in the ED, will change antibiotics due to heart history -On diltiazem for blood pressure as needed, will hold while inpatient Bilateral pneumonia -Chest x-ray reports "1. Findings which may be related to pulmonary congestion. Superimposed infection not excluded. 2. No identifiable fracture 3. Marked elevation of the right hemidiaphragm progressed from the prior potentially in part related to eventration with underlying volume loss. Please correlate for the possibility of phrenic nerve palsy. If concern for diaphragmatic injury, chest CT is recommended." -CTA chest PE protocol reports "Negative for pulmonary embolism to the level of the segmental pulmonary arteries. The subsegmental vessels cannot be adequate assessed. Ill-defined bilateral airspace disease suspicious for pneumonia. Elevated right hemidiaphragm likely due to large volume of abdominal ascites that is presumably related to cirrhosis. Not mentioned in the original report, possibly acute right anterior fourth rib fracture. Other remote appearing rib fractures identified though there is significant motion artifact. No pneumothorax." - Levaquin given in the ED - Azithromycin and Rocephin on the floor C-diff (POA) -As reported, patient is taking vancomycin 125mg PO QID to end 01/29/25 -C. difficile positive on 01/13/2025 -Facility is giving vancomycin as a liquid form, will attempt the capsules for now -Isolation in place Portal hypertension Hepatitis C liver cirrhosis with ascites Splenomegaly - Ultrasound abdomen to rule out ascites - Ammonia pending Thrombocytopenia Vitamin B-12 and iron deficiency anemia - Monitor closely - Platelets 60,000 hypokalemia - Potassium 3.3 - IV fluids with potassium x 1 bag HTN Breast cancer Bipolar and depression Duodenal ulcers Diaphragmatic hernia Alzheimer's Cognitive communication deficit Dysphagia Acute left eye atopic conjunctivitis - Continue home medication, facility provide ciprofloxacin eyedrops, will switch to ofloxacin end date 01/31/25 - Supportive care DVT ppx SCD, d/t thrombocytopenia Fulld code LOS 2-3 days Discharge Plan: Halfway Plan to discharge in: 72 Hours - Advance Directives Does patient have a Living Will: No Does patient have a Durable POA for Healthcare: No Time Spent Managing Pts Care (In Minutes): 60
[2025-01-25] MEDS: D5.45NS W/KCL 20MEQ 1,000 ML IV SCH (10:49)
[2025-01-25 12:30] VITALS: BMI 24.7
--- NOTE | 2025-01-25 12:49 | P.CNS ---
Date of Consult: 01/25/25 Chief Complaint: Fall, elevated troponin History of Present Illness: Patient with PMH of multiple medical problems, presented with syncope, fall, per patient she denies having any active cardiac symptoms, no chest pain, no palpitation, no SOB, although patient got Alzheimer dementia and cirrhosis, cardiology were consulted for leak in troponin. Home medications list reviewed: Yes - Past Medical/Surgical History -: Hypertension -: Alcoholic cirrhosis -: Breast cancer -: Depression with anxiety -: History of gastric varices -: GERD -: History of right breast mastectomy -: Recent EGD, colonoscopy and banding Psychosocial/ Personal History: Patient lives at home - Social History Smoking Status: Unknown if ever smoked Alcohol use: No CD- Drugs: No Caffeine use: No Review of Systems 10-point ROS is otherwise unremarkable Physical Examination Temp Pulse Resp BP Pulse Ox 98.5 F 97 H 16 133/77 94 01/25/25 12:00 01/25/25 12:00 01/25/25 12:00 01/25/25 12:00 01/25/25 12:00 General: Alert, In no apparent distress HEENT: Atraumatic, PERRLA, Mucous membr. moist/pink, EOMI, Sclerae nonicteric Neck: Supple, 2+ carotid pulse no bruit, No LAD, Without JVD or thyroid abnormality Respiratory: Clear to auscultation bilaterally, Normal air movement Cardiovascular: Regular rate/rhythm, Normal S1 S2 Gastrointestinal: Normal bowel sounds, No tenderness Musculoskeletal: No tenderness Integumentary: No rashes Neurological: Normal gait, Normal speech, Normal tone, Normal affect Lymphatics: No axilla or inguinal lymphadenopathy Laboratory Data (last 24 hrs) 01/25/25 01/25/25 01:30 01:30 WBC 7.00 Hgb 10.9 L Hct 33.0 L Plt Count 60 L Sodium 140 Potassium 3.2 L BUN 11 Creatinine 0.72 Glucose 92 Total Bilirubin 2.1 H AST 44 H ALT 20 Alkaline Phosphatase 182 H - Problems (1) Elevated troponin Current Visit: Yes Status: Acute Plan: patient with mild leak in troponin, patient denies chest pain continue to trend troponin for 3 sets. ASA 81 mg daily Lipitor 40 mg daily get echo (2) Syncope Current Visit: Yes Status: Acute Plan: Monitor patient on tele get echo get orthostatic vitals
[2025-01-25] MEDS ORDERED: MORPHINE 2 MG/ML SYR IV PRN (14:02)
[2025-01-25] MEDS ORDERED: ACETAMINOPHEN 325 MG TABLET PO PRN (14:04)
[2025-01-25] MEDS: AZITHROMYCIN IV 500 MG in NA CHLORIDE 0.9% 250 ML IVPB SCH (14:29)
[2025-01-25] MEDS: CEFTRIAXONE 1,000 MG in NA CHLORIDE 0.9% 50 ML IVPB SCH (14:30)
--- NOTE | 2025-01-25 16:42 | RAD REPORT ---
EXAMINATION: COMPLETE ABDOMINAL ULTRASOUND CLINICAL INDICATION: Female, 74 years, Distended abdomen TECHNIQUE: Limited grayscale ultrasonography of the abdomen was performed. [id number]. COMPARISON: No prior exams FINDINGS: Moderate ascites identified in all 4 quadrants. IMPRESSION: Moderate ascites.
[2025-01-25] MEDS: OFLOXACIN OPH 0.3%-5 ML BTL OPTH SCH (17:00)
[2025-01-25] MEDS ORDERED: OFLOXACIN OPH 0.3%-5 ML BTL OTIC SCH (17:00)
[2025-01-25] MEDS: VANCOMYCIN HCL 125 MG CAPSULE PO SCH (18:00)
[2025-01-25] MEDS: TRAZODONE 50 MG TABLET PO SCH (20:50)
[2025-01-25] MEDS: ATORVASTATIN 40 MG TAB PO SCH (20:50)
[2025-01-26 06:12] LABS: Absolute Lymphocytes (CBC) 0.5 K/uL (0.7-4.9); Hematocrit 32.1 % (36.0-45.0); Hemoglobin 10.8 g/dL (12.0-15.0); MCH 31.5 pg (27.0-35.0); MCHC 33.6 g/dL (32.0-36.0); MCV 93.6 fL (80-100); MPV 7.3 fL (7.6-11.3); Nucleated RBC Absolute Count 0.0 (0-0); Nucleated Red Blood Cells % 0.0 % (0-0); RBC Red Blood Cell Count 3.42 M/uL (3.86-4.86); White Blood Count 5.60 thou/uL (4.3-10.9)
[2025-01-26 06:30] LABS: Anion Gap 8.0 mEq/L (5.0-15.0); BUN Blood Urea Nitrogen 7.0 mg/dL (7-18); Glucose Level 84.0 mg/dL (74-106); Magnesium 1.7 mg/dL (1.6-2.4); Potassium 3.0 mEq/L (3.5-5.1)
[2025-01-26 09:22] LABS: Blood Morphology Comment NOT SEEN (NOT SEEN); White Blood Cell Scan OK (OK)
--- NOTE | 2025-01-26 09:58 | P.PN ---
Subjective Date of Service: 01/26/25 Chief Complaint: Fall, elevated troponin Subjective: No new changes Review of Systems 10-point ROS is otherwise unremarkable Physical Examination - Vital Signs Temperature: 98.3 F Blood Pressure: 139/89 Pulse: 92 Respirations: 16 Pulse Ox (%): 92 - Physical Exam General: Alert, In no apparent distress HEENT: Atraumatic, PERRLA, EOMI Neck: Supple, JVD not distended Respiratory: Clear to auscultation bilaterally, Normal air movement Cardiovascular: Regular rate/rhythm, Normal S1 S2 Gastrointestinal: Normal bowel sounds, No tenderness Musculoskeletal: No tenderness Integumentary: No rashes Neurological: Normal speech, Normal tone, Normal affect Lymphatics: No axilla or inguinal lymphadenopathy - Studies Medications List Reviewed: Yes Assessment And Plan - Current Problems (Diagnosis) (1) Elevated troponin Current Visit: Yes Status: Acute Plan: patient with mild leak in troponin that is down trending, patient denies chest pain ASA 81 mg daily Lipitor 40 mg daily get echo (2) Syncope Current Visit: Yes Status: Acute Plan: Monitor patient on tele get echo get orthostatic vitals (3) Sinus tachycardia Current Visit: Yes Status: Acute Plan: resume patient Diltazem 30 mg po q6 hours continue to monitor on tele
[2025-01-26] MEDS: SPIRONOLACTONE 25 MG TABLET PO SCH (10:42)
[2025-01-26] MEDS: POTASSIUM CL SA 10 MEQ TAB PO ONE (10:42)
[2025-01-26] MEDS: ASPIRIN EC 81 MG TAB PO SCH (10:43)
[2025-01-26] MEDS: SERTRALINE HCL 100 MG TAB PO SCH (10:43)
--- NOTE | 2025-01-26 13:09 | P.PN ---
Subjective Date of Service: 01/26/25 Chief Complaint: Fall, elevated troponin Patient is awake and interactive. She denies any complaint, she denies any pain. She was seen eating by herself. She denies shortness of breath. Physical Examination - Vital Signs Temperature: 98.3 F Blood Pressure: 143/82 Pulse: 96 Respirations: 17 Pulse Ox (%): 94 - Studies Medications List Reviewed: Yes Assessment And Plan - Plan Physical examination General: Alert and oriented x 1, NAD, HEENT: Anicteric sclera Neck: Supple, no elevated JVD Heart: Heart sounds 1 and 2 normal, regular rhythm, normal rate, no pedal edema Lungs: Clear to auscultation bilaterally, adequate breath sounds bilaterally, no rhonchi or crackles. Abdomen: Tense, mildly distended, nontender, normal bowel sounds. Extremities: No tenderness, no deformity Skin: Normal skin turgor, no rash, no nodules or ulcers. Neuro: No focal motor deficit. Normal speech. Psychiatry: Normal mood, no agitation. Plan: Fall associated with left head and right knee injury acute right anterior fourth rib fracture History of Osteoarthritis Pain is well-controlled Awaiting PT evaluation Supportive care Elevated troponin CAD EKG: No obvious ST segment changes Troponin trended flat Echocardiogram is pending Cardiology input appreciated Continue aspirin and statin continuous telemetry TSH, A1C, lipid panel pending Check orthostatics Vitals On diltiazem for SVT and hypertension. Bilateral pneumonia Continue IV Rocephin and Zithromax C-diff (POA) As reported, patient is taking vancomycin 125mg PO QID to end 01/29/25 C. difficile positive on 01/13/2025 Continue oral vancomycin Contact isolation Portal hypertension Hepatitis C liver cirrhosis with ascites Splenomegaly Patient with significant ascites and tense abdomen US guided paracentesis ordered Family report patient has chronic diarrhea and does not need to take lactulose. Family advised patient may need lactulose to induce diarrhea if she becomes drowsy or develop altered mental status. Thrombocytopenia Vitamin B-12 and iron deficiency anemia - Monitor closely hypokalemia Continue to replace potassium as needed HTN Breast cancer Bipolar and depression Duodenal ulcers Diaphragmatic hernia Alzheimer's Cognitive communication deficit Dysphagia Acute left eye atopic conjunctivitis Continue home medication. Ofloxacin eyedrop Supportive care DVT ppx SCD. Fulld code Disposition: SNF
[2025-01-26 14:55] LABS: PT Prothrombin Time 16.1 SECONDS (10-13.0); PTT, Activated Partial Thromb 27.6 SECONDS (27.2-37.4); Protime INR 1.44
[2025-01-27 05:19] LABS: Absolute Lymphocytes (CBC) 0.4 K/uL (0.7-4.9); Hematocrit 31.2 % (36.0-45.0); Hemoglobin 10.5 g/dL (12.0-15.0); MCH 31.5 pg (27.0-35.0); MCHC 33.6 g/dL (32.0-36.0); MCV 93.8 fL (80-100); MPV 8.0 fL (7.6-11.3); Nucleated RBC Absolute Count 0.0 (0-0); Nucleated Red Blood Cells % 0.1 % (0-0); RBC Red Blood Cell Count 3.32 M/uL (3.86-4.86); White Blood Count 5.70 thou/uL (4.3-10.9)
[2025-01-27 05:33] LABS: Anion Gap 9.3 mEq/L (5.0-15.0); BUN Blood Urea Nitrogen 7.0 mg/dL (7-18); Glucose Level 74.0 mg/dL (74-106); Magnesium 1.7 mg/dL (1.6-2.4); Potassium 3.3 mEq/L (3.5-5.1)
[2025-01-27] MEDS: MAGNESIUM SULFATE 1 gm IVPB 1 GM/100 ML BAG IV ONE (09:00)
--- NOTE | 2025-01-27 09:24 | P.PN ---
Date of Service: 01/27/25 Subjective: pleasantly confused feels abdomen is bloated/swollen unable to get paracentesis today - pt restless/moving/ in pain Physical Exam: Gen: Orientedx1, NAD CV: Regular rate and rhythm, no edema Pulm: Nonlabored respirations on room air, clear bilaterally Abdomen: distended abdomen, tense, normal bowel sounds Neuro: Normal strength, normal affect Problem List: Fall associated with left head and right knee injury Acute right anterior fourth rib fracture Suspected bilateral Pneumonia Liver cirrhosis with Ascites Portal hypertension/Splenomegaly/Hepatitis C NSTEMI CAD C-diff (POA) Thrombocytopenia, Vitamin B-12 deficiency, Iron deficiency Anemia Hypertension Breast cancer Bipolar disorder/Depression Hx of Duodenal ulcers and Diaphragmatic hernia Advanced Alzheimer's with Cognitive communication deficit Dysphagia Acute left eye atopic conjunctivitis Fall associated with left head and right knee injury Acute right anterior fourth rib fracture CTA chest negative for PE but did note acute right anterior fourth rib fracture. Other remote appearing rib fractures identified though there is significant motion artifact. No pneumothorax. CTA also noted multiple other findings including moderate distal esophageal thickening, Ascending thoracic aortic aneurysm 4cm, Large volume ascites, cirrhosis, splenomegaly, cholelithiasis CT head negative. CT spine negative Pain well managed with current regimen. PT eval. Would likely benefit from SNF / return to SNF Suspected bilateral Pneumonia CTA chest noted ill-defined bilateral airspace disease suspicious for pneumonia, elevated right hemidiaphragm, enlarged pulm arteries Started on IV abx on admission to cover pneumonia Continue IV Azithromycin/Rocephin for now Dr. Dupree, pulm consulted for further input Liver cirrhosis with Ascites Portal hypertension/Splenomegaly/Hepatitis C Patient with significant ascites and tense abdomen abdominal u/s noted moderate ascites in all 4 quadrants US guided paracentesis ordered for today Family report patient has chronic diarrhea and does not need to take lactulose. Family advised patient may need lactulose to induce diarrhea if she becomes drowsy or develop altered mental status NSTEMI CAD Troponins mildly elevated but trended flat. Peak 119 Echo showed normal EF and normal lynn motion per cardio. Pending official report. Cardio consulted. No further inpatient cardiac workup. Consider outpatient f/u for PET if wanting mroe aggressive care given advanced dementia Continue asa 81mg, statin Monitor on telemetry Check orthostatics Vitals On diltiazem at home for SVT and hypertension. C-diff (POA) Patient on vancomycin 125mg PO QID until 01/29/25 C. diff+ on 01/13/2025 Continue oral vancomycin Isolation precautions Thrombocytopenia, Vitamin B-12 deficiency, Iron deficiency Anemia Hypertension Breast cancer Bipolar disorder/Depression Hx of Duodenal ulcers and Diaphragmatic hernia Advanced Alzheimer's with Cognitive communication deficit Dysphagia Acute left eye atopic conjunctivitis Continue home meds, supportive care Ofloxacin eyedrop Daily labs Spoke with daughter, will consult hospice for further information. patient with worsening/progressive advanced dementia, cirrhosis/ascites VTE: SCD Code: Full Dispo: Likely SNF / hospice
--- NOTE | 2025-01-27 09:53 | P.PN ---
Subjective Date of Service: 01/27/25 Chief Complaint: Fall, elevated troponin Subjective: No new changes, No C/O voiced, Tolerating diet Review of Systems 10-point ROS is otherwise unremarkable Physical Examination - Vital Signs Temperature: 98.3 F Blood Pressure: 138/84 Pulse: 94 Respirations: 20 Pulse Ox (%): 92 - Physical Exam General: Alert, In no apparent distress HEENT: Atraumatic, PERRLA, EOMI Neck: Supple, JVD not distended Respiratory: Clear to auscultation bilaterally, Normal air movement Cardiovascular: Regular rate/rhythm, Normal S1 S2 Gastrointestinal: Normal bowel sounds, No tenderness Musculoskeletal: No tenderness Integumentary: No rashes Neurological: Normal speech, Normal tone, Normal affect Lymphatics: No axilla or inguinal lymphadenopathy - Studies Medications List Reviewed: Yes Assessment And Plan - Current Problems (Diagnosis) (1) Elevated troponin Current Visit: Yes Status: Acute Plan: patient with mild leak in troponin that is down trending, patient denies chest pain ASA 81 mg daily Lipitor 40 mg daily Echo shown normal EF and normal lynn motion. outpatient follow up with cardiology for cardiac PET if patient decide on more aggressive care as patient got advanced Dementia. (2) Syncope Current Visit: Yes Status: Acute Plan: Monitor patient on tele, so far patient has been in sinus rhythm with no significant arrhythmia. Echo show normal EF get orthostatic vitals (3) Sinus tachycardia Current Visit: Yes Status: Acute Plan: resume patient Diltazem 30 mg po q6 hours continue to monitor on tele
[2025-01-27] MEDS: POTASSIUM CL SA 10 MEQ TAB PO ONE (11:27)
--- NOTE | 2025-01-27 13:58 | RAD REPORT ---
EXAMINATION: US Abdomen Exam Limited CLINICAL HISTORY: [facility] MA[facility] Ascites COMPARISON: None. TECHNIQUE: Patient initially presented for ultrasound-guided paracentesis. Limited upper abdominal gr ayscale and color flow sonographic images. FINDINGS: Very small-volume ascites seen in the right lower quadrant. After informed consent and discussion of the risks and benefits, timeout procedure was performed. Initial scanning revealed small-volume ascites in the right lower quadrant. Initial attempts at local anesthesia utilizing 1% lidocaine, and performing a small skin estrada at the appropriate site in the right lower quadrant resulted and uncontrollable patient motion. Patient was unable to follow instructions. The procedure was therefore aborted, as ability to safely perform a diagnostic paracentesis was not feasible, especially given the small volume of fluid seen. IMPRESSION: Small volume right lower quadrant appendicitis. I was unable to safely perform ultrasound-guided para centesis.
[2025-01-28 04:42] LABS: Absolute Lymphocytes (CBC) 0.4 K/uL (0.7-4.9); Hematocrit 29.5 % (36.0-45.0); Hemoglobin 10.2 g/dL (12.0-15.0); MCH 32.3 pg (27.0-35.0); MCHC 34.6 g/dL (32.0-36.0); MCV 93.2 fL (80-100); MPV 7.9 fL (7.6-11.3); Nucleated RBC Absolute Count 0.0 (0-0); Nucleated Red Blood Cells % 0.1 % (0-0); RBC Red Blood Cell Count 3.17 M/uL (3.86-4.86); White Blood Count 5.10 thou/uL (4.3-10.9)
[2025-01-28 04:51] LABS: Anion Gap 9.4 mEq/L (5.0-15.0); BUN Blood Urea Nitrogen 8.0 mg/dL (7-18); Glucose Level 90.0 mg/dL (74-106); Magnesium 1.8 mg/dL (1.6-2.4); Potassium 3.4 mEq/L (3.5-5.1)
[2025-01-28] MEDS: BUPROPION HCL 75 MG PO SCH (09:00)
[2025-01-28] MEDS: MAGNESIUM SULFATE 1 gm IVPB 1 GM/100 ML BAG IV ONE (09:01)
[2025-01-28] MEDS: DILTIAZEM HCL 60 MG TAB PO SCH (09:01)
[2025-01-28] MEDS: FUROSEMIDE 40 MG TABLET PO SCH (09:02)
[2025-01-28] MEDS: LACTOBACILLUS/ACIDOPHILUS TAB PO SCH (09:02)
[2025-01-28] MEDS: POTASSIUM CL SA 10 MEQ TAB PO ONE ×2 (09:02→21:11)
[2025-01-28] MEDS: PANTOPRAZOLE 40MG TABLET PO SCH (09:02)
[2025-01-28] MEDS: THIAMINE HCL 100 MG TABLET PO SCH (09:02)
--- NOTE | 2025-01-28 10:46 | P.PN ---
Date of Service: 01/28/25 Subjective: ~4 episodes of diarrhea yesterday during the day, 1 overnight unable to safely perform paracentesis due to patient movement/restlessness during procedure didn't work with PT yesterday because she had soiled diaper and was being cleaned patient states she has been confused and fuzzy on details. afebrile Physical Exam: Gen: Orientedx1, NAD; pleasant CV: Regular rate and rhythm, no edema Pulm: Nonlabored respirations on room air, clear bilaterally Abdomen: distended abdomen, normal bowel sounds Neuro: Normal strength, normal affect Problem List: Fall associated with left head and right knee injury Acute right anterior fourth rib fracture Suspected bilateral Pneumonia Liver cirrhosis with Ascites Portal hypertension/Splenomegaly/Hepatitis C NSTEMI CAD C-diff (POA) Thrombocytopenia, Vitamin B-12 deficiency, Iron deficiency Anemia Hypertension Breast cancer Bipolar disorder/Depression Hx of Duodenal ulcers and Diaphragmatic hernia Advanced Alzheimer's with Cognitive communication deficit Dysphagia Acute left eye atopic conjunctivitis Fall associated with left head and right knee injury Acute right anterior fourth rib fracture CTA chest negative for PE but did note acute right anterior fourth rib fracture. Other remote appearing rib fractures identified though there is significant motion artifact. No pneumothorax. CTA also noted multiple other findings including moderate distal esophageal thickening, Ascending thoracic aortic aneurysm 4cm, Large volume ascites, cirrhosis, splenomegaly, cholelithiasis CT head negative. CT spine negative Pain well managed with current regimen. PT eval. Would likely benefit from SNF / return to SNF Suspected bilateral Pneumonia CTA chest noted ill-defined bilateral airspace disease suspicious for pneumonia, elevated right hemidiaphragm, enlarged pulm arteries Started on IV abx on admission to cover pneumonia Continue IV Azithromycin/Rocephin for now Dr. Dupree, pulnatasha consulted for further input Liver cirrhosis with Ascites Portal hypertension/Splenomegaly/Hepatitis C Patient with significant ascites and tense abdomen Family report patient has chronic diarrhea and does not need to take lactulose. Family advised patient may need lactulose to induce diarrhea if she becomes drowsy or develop altered mental status abdominal u/s noted moderate ascites in all 4 quadrants Unable to safely perform paracentesis (01/27) due to patient movement/restlessness during procedure NSTEMI CAD Troponins mildly elevated but trended flat. Peak 119 Echo showed normal EF and normal lynn motion per cardio. Pending official report. Cardio consulted. No further inpatient cardiac workup. Consider outpatient f/u for PET if wanting mroe aggressive care given advanced dementia Continue asa 81mg, statin Monitor on telemetry resume home Diltiazem today C-diff (POA) C. diff+ on 01/13/2025 Patient on vancomycin 125mg PO QID until 01/29/25 Continue oral vancomycin for 1 more day. Isolation precautions Thrombocytopenia, Vitamin B-12 deficiency, Iron deficiency Anemia Hypertension Breast cancer Bipolar disorder/Depression Hx of Duodenal ulcers and Diaphragmatic hernia Advanced Alzheimer's with Cognitive communication deficit Dysphagia Acute left eye atopic conjunctivitis resume home donepezil, buproprion, remeron Continue supportive care Ofloxacin eyedrop Daily labs Spoke with daughter, will consult hospice for further information. patient with worsening/progressive advanced dementia, cirrhosis/ascites VTE: SCD Code: Full Dispo: Likely SNF / hospice Time Spent Managing Pts Care (In Minutes): 45
[2025-01-28] MEDS: DONEPEZIL HCL 5 MG TAB PO SCH (21:11)
[2025-01-28] MEDS: ZINC OXIDE 20% OINTMENT 60gm TOP SCH (21:12)
[2025-01-28] MEDS: MIRTAZAPINE 15 MG TAB PO SCH (21:12)
[2025-01-29 05:58] LABS: Absolute Lymphocytes (CBC) 0.4 K/uL (0.7-4.9); Hematocrit 30.3 % (36.0-45.0); Hemoglobin 10.4 g/dL (12.0-15.0); MCH 31.8 pg (27.0-35.0); MCHC 34.2 g/dL (32.0-36.0); MCV 93.2 fL (80-100); MPV 8.2 fL (7.6-11.3); Nucleated RBC Absolute Count 0.0 (0-0); Nucleated Red Blood Cells % 0.1 % (0-0); RBC Red Blood Cell Count 3.25 M/uL (3.86-4.86); White Blood Count 8.50 thou/uL (4.3-10.9)
[2025-01-29 06:07] LABS: Anion Gap 6.6 mEq/L (5.0-15.0); BUN Blood Urea Nitrogen 7.0 mg/dL (7-18); Glucose Level 91.0 mg/dL (74-106); Magnesium 1.8 mg/dL (1.6-2.4); Potassium 3.6 mEq/L (3.5-5.1)
[2025-01-29] MEDS: MAGNESIUM SULFATE 1 gm IVPB 1 GM/100 ML BAG IV ONE (08:12)
[2025-01-29] MEDS: POTASSIUM 25 MEQ EFFERV TAB PO ONE (08:13)
--- NOTE | 2025-01-29 10:14 | P.PN ---
Date of Service: 01/29/25 Subjective: diarrhea improving, had 1 slightly formed BM overnight desat to 88% on room air, improved to 96% on 2L afebrile Physical Exam: Gen: Orientedx1, NAD; pleasant CV: Regular rate and rhythm, no edema Pulm: Nonlabored respirations on 2L NC, clear bilaterally Abdomen: distended abdomen, normal bowel sounds Neuro: Normal strength, normal affect Problem List: Fall associated with left head and right knee injury Acute right anterior fourth rib fracture Suspected bilateral Pneumonia Liver cirrhosis with Ascites Portal hypertension/Splenomegaly/Hepatitis C NSTEMI CAD C-diff (POA) Thrombocytopenia, Vitamin B-12 deficiency, Iron deficiency Anemia Hypertension Breast cancer Bipolar disorder/Depression Hx of Duodenal ulcers and Diaphragmatic hernia Advanced Alzheimer's with Cognitive communication deficit Dysphagia Acute left eye atopic conjunctivitis Fall associated with left head and right knee injury Acute right anterior fourth rib fracture CTA chest negative for PE but did note acute right anterior fourth rib fracture. Other remote appearing rib fractures identified though there is significant motion artifact. No pneumothorax. CTA also noted multiple other findings including moderate distal esophageal thickening, Ascending thoracic aortic aneurysm 4cm, Large volume ascites, cirrhosis, splenomegaly, cholelithiasis CT head negative. CT spine negative Pain well managed with current regimen. Continue physical therapy. clinical services specialist consulted for hospice. Suspected bilateral Pneumonia CTA chest noted ill-defined bilateral airspace disease suspicious for pneumonia, elevated right hemidiaphragm, enlarged pulm arteries Started on IV abx on admission to cover pneumonia Continue IV Azithromycin/Rocephin for now Pulm consulted Liver cirrhosis with Ascites Portal hypertension/Splenomegaly/Hepatitis C Patient with significant ascites and tense abdomen Family report patient has chronic diarrhea and does not need to take lactulose. Family advised patient may need lactulose to induce diarrhea if she becomes drowsy or develop altered mental status abdominal u/s noted moderate ascites in all 4 quadrants Unable to safely perform paracentesis (01/27) due to patient movement/restlessness during procedure NSTEMI CAD Troponins mildly elevated but trended flat. Peak 119 Echo showed normal EF and normal lynn motion per cardio. Pending official report. Cardio consulted. No further inpatient cardiac workup. Consider outpatient f/u for PET if wanting mroe aggressive care given advanced dementia Continue asa 81mg, statin Monitor on telemetry resume home Diltiazem C-diff (POA) C. diff+ on 01/13/2025 Patient on vancomycin 125mg PO QID until 01/29/25 Continue oral vancomycin Isolation precautions Thrombocytopenia, Vitamin B-12 deficiency, Iron deficiency Anemia Hypertension Breast cancer Bipolar disorder/Depression Hx of Duodenal ulcers and Diaphragmatic hernia Advanced Alzheimer's with Cognitive communication deficit Dysphagia Acute left eye atopic conjunctivitis resume home donepezil, buproprion, remeron Continue supportive care Ofloxacin eyedrop Daily labs Spoke with daughter, will consult hospice for further information. patient with worsening/progressive advanced dementia, cirrhosis/ascites VTE: SCD Code: Full Dispo: hospice once setup Time Spent Managing Pts Care (In Minutes): 45
[2025-01-29] MEDS: HYDROCODONE/APAP 5/325 MG TAB PO PRN (12:35)
[2025-01-29 21:31] VITALS: O2SAT 94
[2025-01-30 05:35] LABS: Absolute Lymphocytes (CBC) 0.4 K/uL (0.7-4.9); Hematocrit 30.9 % (36.0-45.0); Hemoglobin 10.6 g/dL (12.0-15.0); MCH 32.1 pg (27.0-35.0); MCHC 34.4 g/dL (32.0-36.0); MCV 93.3 fL (80-100); MPV 7.4 fL (7.6-11.3); Nucleated RBC Absolute Count 0.0 (0-0); Nucleated Red Blood Cells % 0.1 % (0-0); RBC Red Blood Cell Count 3.31 M/uL (3.86-4.86); White Blood Count 8.40 thou/uL (4.3-10.9)
[2025-01-30 05:52] LABS: AST/SGOT 25 U/L (15-37); Albumin 2.3 g/dL (3.4-5.0); Albumin/Globulin Ratio 0.6 (1.1-1.8); Alkaline Phosphatase 141 U/L (45-117); Anion Gap 9.3 mEq/L (5.0-15.0); BUN Blood Urea Nitrogen 7 mg/dL (7-18); Globulin 3.7 g/dL (2.3-3.5); Glucose Level 102 mg/dL (74-106); Magnesium 1.7 mg/dL (1.6-2.4); Potassium 3.3 mEq/L (3.5-5.1)
[2025-01-30 05:55] LABS: ALT/SGPT < 14 U/L (13-56)
[2025-01-30 08:04] VITALS: TEMP 98
[2025-01-30] MEDS: POTASSIUM 25 MEQ EFFERV TAB PO ONE (09:50)
[2025-01-30] MEDS: POTASS/SODIUM PHOSPHATE 1 PKT POWD.PACK PO SCH (09:51)
[2025-01-30] MEDS: MAGNESIUM SULFATE 1 gm IVPB 1 GM/100 ML BAG IV ONE (09:53)
--- NOTE | 2025-01-30 11:36 | P.PN ---
Date of Service: 01/30/25 Subjective: diarrhea improving. Had 2 small pasty BM still desats to high 80s on RA. Improved to 95% on 2L NC no new issues overnight afebrile Physical Exam: Gen: Orientedx1, NAD; pleasant CV: Regular rate and rhythm, no edema Pulm: Nonlabored respirations on 2L NC, clear bilaterally Abdomen: distended abdomen, normal bowel sounds Neuro: Normal strength, normal affect Problem List: Fall associated with left head and right knee injury Acute right anterior fourth rib fracture Suspected bilateral Pneumonia Liver cirrhosis with Ascites Portal hypertension/Splenomegaly/Hepatitis C NSTEMI CAD C-diff (POA), s/p oral vanc Thrombocytopenia, Vitamin B-12 deficiency, Iron deficiency Anemia Hypertension Breast cancer Bipolar disorder/Depression Hx of Duodenal ulcers and Diaphragmatic hernia Advanced Alzheimer's with Cognitive communication deficit Dysphagia Acute left eye atopic conjunctivitis Fall associated with left head and right knee injury Acute right anterior fourth rib fracture CTA chest negative for PE but did note acute right anterior fourth rib fracture. Other remote appearing rib fractures identified though there is significant motion artifact. No pneumothorax. CTA also noted multiple other findings including moderate distal esophageal thickening, Ascending thoracic aortic aneurysm 4cm, Large volume ascites, cirrhosis, splenomegaly, cholelithiasis CT head negative. CT spine negative Pain well managed with current regimen. Continue physical therapy. supervisor volunteer services consulted for hospice. Suspected bilateral Pneumonia CTA chest noted ill-defined bilateral airspace disease suspicious for pneumonia, elevated right hemidiaphragm, enlarged pulm arteries Started on IV abx on admission to cover pneumonia Continue IV Rocephin for now Pulm consulted Liver cirrhosis with Ascites Portal hypertension/Splenomegaly/Hepatitis C Patient with significant ascites and tense abdomen Family report patient has chronic diarrhea and does not need to take lactulose. Family advised patient may need lactulose to induce diarrhea if she becomes drowsy or develop altered mental status abdominal u/s noted moderate ascites in all 4 quadrants Unable to safely perform paracentesis (01/27) due to patient movement/restlessness during procedure NSTEMI CAD Troponins mildly elevated but trended flat. Peak 119 Echo showed normal EF and normal lynn motion per cardio. Pending official report. Cardio consulted. No further inpatient cardiac workup. Consider outpatient f/u for PET if wanting mroe aggressive care given advanced dementia Continue asa 81mg, statin Monitor on telemetry resume home Diltiazem C-diff (POA), s/p oral vanc C. diff+ on 01/13/2025 s/p ~2 weeks of oral Vanc. Completed course 01/29 DC isolation precautions Thrombocytopenia, Vitamin B-12 deficiency, Iron deficiency Anemia Hypertension Breast cancer Bipolar disorder/Depression Hx of Duodenal ulcers and Diaphragmatic hernia Advanced Alzheimer's with Cognitive communication deficit Dysphagia Acute left eye atopic conjunctivitis resume home donepezil, buproprion, remeron Continue supportive care Ofloxacin eyedrop Daily labs Spoke with daughter, will consult hospice for further information. patient with worsening/progressive advanced dementia, cirrhosis/ascites VTE: SCD Code: Full Dispo: hospice once setup Time Spent Managing Pts Care (In Minutes): 45
[2025-01-30 12:06] VITALS: BP 178/101
--- NOTE | 2025-01-31 11:21 | P.DS ---
Admission Date: 01/25/25 Discharge Date: 01/30/25 Disposition: HOSPICE-MEDICAL FACILITY Reason for Admission: Fall, elevated troponin Consultations: Cardiology - Dr. Guerra Pulmonology - Dr. Dupree Brief History of Present Illness: 74 yo F, PMH: Cirrhosis, hepatitis C, portal hypertension, ascites, HTN, Breast cancer, splenomegaly, osteoarthritis, CAD, vit B12 and iron deficiency anemia, bipolar/ Depression, duodenal ulcer, diaphragmatic hernia, Alzeihmers, cognitive communication deficit, dysphagia, left eye acute atopic conjuntivitis who presents to the ED status post fall from her wheelchair while transferring from the wheelchair to the toilet. She reports "blacking out" and presents with a bruise and bump to left forehead as well as abrasions to right knee. She reports falling frequently. During examination she became confused about her surroundings. Noted that she has Alzheimer's and cognitive communication disorder. Unable to retain family past medical history due to confusion. CTA chest PE protocol reports "Negative for pulmonary embolism to the level of the segmental pulmonary arteries. The subsegmental vessels cannot be adequate assessed. Ill-defined bilateral airspace disease suspicious for pneumonia. Elevated right hemidiaphragm likely due to large volume of abdominal ascites that is presumably related to cirrhosis. Not mentioned in the original report, possibly acute right anterior fourth rib fracture. Other remote appearing rib fractures identified though there is significant motion artifact. No pneumothorax."Cervical spine CT "No acute cervical spine abnormalities" Head and cervical spine CT "No acute intracranial findings. Left frontal scalp soft tissue swelling. 2. No definite cervical spine fracture. However, examination is limited secondary to motion artifact. Recommend repeat CT of the cervical spine." Pelvis x-ray report "The right femoral neck is foreshortened. This may be related to patient positioning. Please correlate with point tenderness in the setting of an acute fracture." Chest x-ray reports "1. Findings which may be related to pulmonary congestion. Superimposed infection not excluded. 2. No identifiable fracture 3. Marked elevation of the right hemidiaphragm progressed from the prior potentially in part related to eventration with underlying volume loss. Please correlate for the possibility of phrenic nerve palsy. If concern for diaphragmatic injury, chest CT is recommended." Swapna will be admitted to hospitalist service for further evaluation and treatment of frequent falls and pneumonia. Hospital Course: Problem List: Fall associated with left head and right knee injury Acute right anterior fourth rib fracture Suspected bilateral Pneumonia Liver cirrhosis with Ascites Portal hypertension/Splenomegaly/Hepatitis C NSTEMI CAD C-diff (POA), s/p oral vanc Thrombocytopenia, Vitamin B-12 deficiency, Iron deficiency Anemia Hypertension Breast cancer Bipolar disorder/Depression Hx of Duodenal ulcers and Diaphragmatic hernia Advanced Alzheimer's with Cognitive communication deficit Dysphagia Acute left eye atopic conjunctivitis Physician discharge instructions: Patient presented to ED after mechanical fall from wheelchair and was found to have acute right anterior fourth rib fracture. CT head and spine were negative for any acute findings. CTA chest negative for PE but did note acute right anterior fourth rib fracture. Other remote appearing rib fractures identified though there is significant motion artifact. No pneumothorax. CTA also noted multiple other findings including moderate distal esophageal thickening, Ascending thoracic aortic aneurysm 4cm, Large volume ascites, cirrhosis, splenomegaly, cholelithiasis. Troponins were noted to be mildly elevated on admission but trended flat. Echo showed normal EF and normal wall motion. Cardiology was consulted and felt there were no indications to warrant further inpatient work up. Given her advanced dementia, can consider following up in the office for outpatient PET scan if wanting to pursue for aggressive care. She was noted to have significant ascites associated with tense abdomen. Abdominal ultrasound noted moderate ascites in all 4 quadrants. An attempt was made for therapeutic paracentesis on 01/27 however was unable to be safely performed due to patient movement/restlessness, discomfort. Discussed goals of care at length with patient and family. Given her worsening quality of life, progressively worsening dementia, and worsening physical deconditioning, in setting of chronic liver disease - the decision was made to pursue comfort care with hospice. Physical Exam: Gen: Orientedx1, NAD; pleasant CV: Regular rate and rhythm, no edema Pulm: Nonlabored respirations on 2L NC, clear bilaterally Abdomen: distended abdomen, normal bowel sounds Neuro: Normal strength, normal affect Vital Signs/Physical Exam: Temp Pulse Resp BP Pulse Ox 98 F 93 H 18 178/101 H 94 01/30/25 12:00 01/30/25 12:00 01/30/25 12:00 01/30/25 12:00 01/30/25 12:00 Laboratory Data at Discharge: WBC 8.40 thou/uL (4.3-10.9) 01/30/25 05:04 Hgb 10.6 g/dL (12.0-15.0) L 01/30/25 05:04 Hct 30.9 % (36.0-45.0) L 01/30/25 05:04 Plt Count 54 thou/uL (152-406) L 01/30/25 05:04 PT 16.1 SECONDS (10-13.0) H 01/26/25 14:30 INR 1.44 01/26/25 14:30 APTT 27.6 SECONDS (27.2-37.4) 01/26/25 14:30 Sodium 140 mEq/L (136-145) 01/30/25 05:06 Potassium Cancelled 01/30/25 15:00 BUN 7 mg/dL (7-18) 01/30/25 05:06 Creatinine 0.48 mg/dL (0.55-1.02) L 01/30/25 05:06 Glucose 102 mg/dL (74-106) 01/30/25 05:06 Phosphorus 2.5 mg/dL (2.5-4.9) 01/30/25 05:06 Magnesium 1.7 mg/dL (1.6-2.4) 01/30/25 05:06 Total Bilirubin 2.3 mg/dL (0.2-1.0) H 01/30/25 05:06 AST 25 U/L (15-37) 01/30/25 05:06 ALT < 14 U/L (13-56) 01/30/25 05:06 Alkaline Phosphatase 141 U/L (45-117) H 01/30/25 05:06 Home Medications: Bismuth Subsalicylate [Pepto-Bismol] 262 mg PO Q6HR PRN 01/25/25 Cholecalciferol (Vitamin D3) [Vitamin D3] 1,000 unit PO DAILY 01/25/25 Clonidine HCl [Catapres*] 0.1 mg PO Q6HR 01/25/25 Donepezil HCl 10 mg PO BEDTIME 01/25/25 Furosemide [Lasix] 40 mg PO DAILY 01/25/25 Hydrocodone 5/APAP 325 [Wayne 5/325*] 1 tab PO Q12HR 01/25/25 L.acidoph,Paracasei, B.lactis [Probiotic] 1 each PO DAILY 01/25/25 Mirtazapine 7.5 mg PO BEDTIME 01/25/25 Pantoprazole [Protonix Tab*] 40 mg PO DAILY 01/25/25 Polyethylene Glycol 3350 [Miralax] 17 gm PO DAILY 01/25/25 Sertraline HCl 100 mg PO DAILY 01/25/25 Spironolactone 25 mg PO DAILY 01/25/25 Thiamine HCl [Vitamin B-1] 100 mg PO DAILY 01/25/25 Trazodone [Desyrel*] 50 mg PO BEDTIME 01/25/25 Vancomycin HCl 125 mg PO Q6HR 01/25/25 buPROPion HCL [Bupropion HCl] 75 mg PO BID 01/25/25 dilTIAZem HCL [Diltiazem HCl] 30 mg PO Q6H 01/25/25 Physician Discharge Instructions: Physician discharge instructions: Patient presented to ED after mechanical fall from wheelchair and was found to have acute right anterior fourth rib fracture. CT head and spine were negative for any acute findings. CTA chest negative for PE but did note acute right anterior fourth rib fracture. Other remote appearing rib fractures identified though there is significant motion artifact. No pneumothorax. CTA also noted multiple other findings including moderate distal esophageal thickening, Ascending thoracic aortic aneurysm 4cm, Large volume ascites, cirrhosis, splenomegaly, cholelithiasis. Troponins were noted to be mildly elevated on admission but trended flat. Echo showed normal EF and normal wall motion. Cardiology was consulted and felt there were no indications to warrant further inpatient work up. Given her advanced dementia, can consider following up in the office for outpatient PET scan if wanting to pursue for aggressive care. She was noted to have significant ascites associated with tense abdomen. Abdominal ultrasound noted moderate ascites in all 4 quadrants. An attempt was made for therapeutic paracentesis on 01/27 however was unable to be safely performed due to patient movement/restlessness, discomfort. Discussed goals of care at length with patient and family. Given her worsening quality of life, progressively worsening dementia, and worsening physical deconditioning, in setting of chronic liver disease - the decision was made to pursue comfort care with hospice. Followup: MINNIE HOGAN [Primary Care Provider] - 1-2 Weeks Time spent managing pt's care (in minutes): 45
== END 2025-01-30 13:25 | disposition hospice, inpatient (51) | DRG 205 ==
LOC: ER 00:59 → ERHOLD 08:29 → 2ND 09:09
PROVIDERS: ADMIT Internal Medicine; ATTEND Hospitalist
DX: S22.31XA Fracture of one rib, right side, initial encounter for closed fracture (principal); I21.4 Non-ST elevation (NSTEMI) myocardial infarction; J18.9 Pneumonia, unspecified organism; K76.6 Portal hypertension; R18.8 Other ascites; K74.60 Unspecified cirrhosis of liver; E87.6 Hypokalemia; I10 Essential (primary) hypertension; F31.9 Bipolar disorder, unspecified; D50.9 Iron deficiency anemia, unspecified; K44.9 Diaphragmatic hernia without obstruction or gangrene; H10.12 Acute atopic conjunctivitis, left eye; D69.6 Thrombocytopenia, unspecified; D51.9 Vitamin B12 deficiency anemia, unspecified; M19.90 Unspecified osteoarthritis, unspecified site; S89.91XA Unspecified injury of right lower leg, initial encounter; S09.90XA Unspecified injury of head, initial encounter; K80.20 Calculus of gallbladder without cholecystitis without obstruction; I71.21 Aneurysm of the ascending aorta, without rupture; K26.9 Duodenal ulcer, unspecified as acute or chronic, without hemorrhage or perforation; K21.9 Gastro-esophageal reflux disease without esophagitis; G30.9 Alzheimer's disease, unspecified; F02.80 Dementia in other diseases classified elsewhere, unspecified severity, without behavioral disturbance, psychotic disturbance, mood disturbance, and anxiety; I25.10 Atherosclerotic heart disease of native coronary artery without angina pectoris; B19.20 Unspecified viral hepatitis C without hepatic coma; B96.89 Other specified bacterial agents as the cause of diseases classified elsewhere; R79.89 Other specified abnormal findings of blood chemistry; R13.10 Dysphagia, unspecified; R16.1 Splenomegaly, not elsewhere classified; R00.0 Tachycardia, unspecified; R29.6 Repeated falls; Z88.0 Allergy status to penicillin; Z51.5 Encounter for palliative care; R41.841 Cognitive communication deficit; Z85.3 Personal history of malignant neoplasm of breast; Z91.81 History of falling; Z90.11 Acquired absence of right breast and nipple; S01.81XA Laceration without foreign body of other part of head, initial encounter; W18.30XA Fall on same level, unspecified, initial encounter; Y93.9 Activity, unspecified; Y92.092 Bedroom in other non-institutional residence as the place of occurrence of the external cause; Y99.9 Unspecified external cause status
CPT/HCPCS: 36415; 49083; 70450; 71045; 71275; 72125; 72170; 76705; 80048; 80053; 80076; 82140; 83735; 84100; 84132; 84484; 85025; 85610; 85730; 93005; 93306; 96361; 96374; 97110; 97161; 99285; J0456; J0696; J3475; J7030; J7050; Q9967